=== PATIENT | female | born 1950 | race Caucasian/White ===

== ENCOUNTER 2018-07-11 04:00 | Inpatient (IN) | payer MEDICARE, OTHER, SELFPAY ==
[2018-07-11] VITALS (10 sets, daily range): BP systolic 137–207; BP diastolic 63–111; PULSE 65–76; RESP 16–24; TEMP 36.2–37; O2SAT 96–100; BMI 31.8
--- NOTE | 2018-07-11 04:17 | DI.RAD.S_ITS ---
PROCEDURE: XR CHEST 1V INDICATIONS: chest pain TECHNIQUE: One view of the chest was acquired. COMPARISON: None. FINDINGS: Surgical changes and devices: None. Lungs and pleura: No pleural effusions or pneumothorax. Lungs are clear. Mediastinum: Mediastinal contours appear normal. Heart size is normal. Bones and chest wall: No suspicious bony lesions. Overlying soft tissues appear unremarkable. IMPRESSION: No acute cardiopulmonary pathology. Dictated by: Kirit Gong M.D. on 07/11/2018 at 9:42 Approved by: Kirit Gong M.D. on 07/11/2018 at 9:42
[2018-07-11] MEDS: SODIUM CHLORIDE 0.9% 1,000 ML 150 ML IV ×2 (04:20→11:59)
[2018-07-11] MEDS: LABETALOL 100 MG/20ML MDV 10 MG IV (04:21)
[2018-07-11 04:39] LABS: Add Manual Diff / Slide Review NO; Basophils Percent Auto 0.5 % (0-2); Eosinophils Percent Auto 2.7 % (2-4); Hematocrit 43.8 % (36-46); Hemoglobin 15.4 g/dL (12.0-16.0); Lymphocytes Percent Auto 18.3 % (25-40); Mean Corpuscular HGB Conc 35.2 % (30-36); Mean Corpuscular Hemoglobin 30.8 PG (26-34); Mean Corpuscular Volume 87.4 fL (80-100); Monocytes Percent Auto 8.5 % (3-14); Neutrophils Absolute Auto 3800 /uL (3000-5900); Platelet Count 137 X10^3/uL (150-400); Red Blood Cell Count 5.01 X10^6/uL (4.0-5.2); Red Cell Distribution Width 12.6 % (11.6-14.8); White Blood Cell Count 5.4 X10^3/uL (4.5-11.0)
[2018-07-11 04:49] LABS: Alanine Aminotransferase 32 IU/L (9-52); Albumin 4.2 g/dL (3.5-5.0); Albumin Globulin Ratio 1.4 (1.0-2.8); Alkaline Phosphatase 118 U/L (38-126); Aspartate Aminotransferase 31 IU/L (14-36); Bilirubin Total 0.7 mg/dL (0.2-1.3); Blood Urea Nitrogen 24 mg/dL (7-17); Carbon Dioxide 27 mmol/L (22-32); Chloride 107 mmol/L (98-107); Creatine Kinase 105 U/L (30-135); Estimated Glomerular Filt Rate > 60.0 mL/min (>60); Glucose 182 mg/dL (80-110); HEMOLYSIS < 15 (0-50); Lipase 213 U/L (23-300); Potassium 4.2 mmol/L (3.4-5.1); Sodium 145 mmol/L (137-145); Total Protein 7.2 g/dL (6.3-8.2)
--- NOTE | 2018-07-11 04:55 | PC.NURSE ---
post labatalol admin
[2018-07-11 04:57] LABS: B Type Natriuretic Peptide < 30.0 (<100)
[2018-07-11 05:04] LABS: CKMB % Relative Index 3.4 % (1.5-5.0); Creatine Kinase MB 3.59 ng/mL (<2.37)
[2018-07-11] MEDS: METOPROLOL 50 MG TABLET PO (05:08)
--- NOTE | 2018-07-11 05:19 | PC.NURSE ---
pt reports chest pain is gone. states i feel a little tight right here now and pointed to her [place] area.
[2018-07-11 05:30] LABS: Troponin I 0.143 ng/mL (0.01-0.034)
[2018-07-11 05:39] LABS: Bacteria Urine None Seen; RBC Urine None Seen (0-5/HPF)
--- NOTE | 2018-07-11 05:39 | ED_ITS ---
HPI - Chest Pain General Chief Complaint: Chest Pain Stated Complaint: Chest pain Time Seen by Provider: 07/11/18 04:05 Source: patient, family and EMS Mode of arrival: EMS Limitations: no limitations History of Present Illness HPI narrative: 67-year-old patient with history of hypertension presents to the emergency department by EMS with chief complaint sudden-onset severe anterior chest pain with radiation to bilateral shoulders and jaw, associated with lightheadedness, shortness of breath and nausea. She denies any provocation or palliation of her symptoms. She denies any history of the same. Yesterday she had a brief episode of some chest pressure and shortness of breath but it went away after about 30 min. EMS found her with an elevated systolic blood pressure over 200 and obtained EKG which was nonischemic. She was administered aspirin, nitro and transported to the emergency department. She was still having some of her symptoms on arrival MD complaint: chest pain Onset (ago): hour(s) Duration: constant Onset: during rest Severity: severe Severity scale (1-10): 10 Quality: tightness, aching and heaviness Pain radiation: RUE, LUE, neck and jaw/teeth Relieving factors: nothing Exacerbating factors: nothing Associated symptoms: nausea and dyspnea Treatments prior to arrival chest pain: aspirin, nitroglycerin and oxygen Related Data On Oral Contraceptives: No Home Medications Medication Instructions Recorded Confirmed loratadine [Claritin] 10 mg PO QDAYP PRN #0 09/01/17 07/11/18 Allergies Allergy/AdvReac Type Severity Reaction Status Date / Time No Known Drug Allergies Allergy Verified 07/11/18 04:19 Review of Systems Review of Systems All systems reviewed & are unremarkable except as noted in HPI and below Constitutional Denies chills, Denies fever(s), Denies lethargy and Denies weakness Eyes Denies change in vision, Denies eye discharge, Denies irritation and Denies loss of vision ENT Ears, Nose, Mouth, and Throat: Denies change in voice, Denies neck pain and Denies sore throat Cardiovascular Reports chest pain, Denies irregular heart rhythm, Reports lightheadedness, Denies palpitations, Reports dyspnea, Denies dyspnea on exertion and Denies orthopnea Respiratory Denies cough, Reports dyspnea, Denies dyspnea on exertion and Denies wheezing Gastrointestinal Gastrointestinal: Denies abdominal pain, Denies change in bowel habits, Denies diarrhea, Denies nausea and Denies vomiting Genitourinary Denies hematuria, Denies flank pain, Denies urinary incontinence and Denies urinary urgency Musculoskeletal Denies neck pain Integumentary/Breasts Denies pruritus, Denies erythema, Denies rash and Denies wounds Neurologic Denies confusion, Denies loss of vision and Denies weakness Psychiatric Denies anxiety, Denies confusion, Denies depression, Denies homicidal ideation and Denies suicidal ideation Endocrine Denies palpitations Hematologic/Lymphatic Denies easy bruising Allergic/Immunologic Denies wheezing PFSH Family History: Reviewed 07/11/18 by Humera Napier MD Social History household members: spouse and family Smoking Status: Never smoker Exam Initial Vital Signs Initial Vital Signs: Vital Signs Temperature 97.2 F L 07/11/18 04:15 Pulse Rate 76 07/11/18 04:15 Respiratory Rate 18 07/11/18 04:15 Blood Pressure 207/111 H 07/11/18 04:15 Pulse Oximetry 96 07/11/18 04:15 Const General: cooperative and well developed Nutritional Appearance: well nourished Orientation: alert, awake, oriented x3 and not confused HENMT Head: normocephalic and atraumatic Ears: external ears normal and TM's normal bilaterally Nose: external nose normal and No nasal discharge Face and sinus: sinuses nontender, face symmetric, no sinus tenderness and No dry mucous membranes Mouth: oral mucosae normal and moist mucous membranes Teeth and gingiva: dentition normal Throat: tonsils normal and uvula midline Eyes General: appearance normal, both eyes and all related structures Eyelids: eyelids normal Conjunctivae: conjunctivae normal Sclera: sclerae normal Pupils: PERRL EOM: EOM intact bilaterally Neck Neck: normal visual inspection, trachea midline, No lymphadenopathy, No midline deformity and No JVD Lymphatic: No lymphedema Chest Chest: normal inspection of the chest Resp Effort & Inspection: normal respiratory effort, able to speak in complete sentences, no respiratory distress and no use of accessory muscles Auscultation: clear to auscultation bilaterally, no rales, no rhonchi and no wheezes Cardio Rate: regular rate Rhythm: regular rhythm Heart Sounds: no click, no gallops, no murmurs and no rubs Pulses: normal peripheral pulses GI Inspection: non-distended Palpation: soft, no hepatosplenomegaly, No guarding, No pulsatile mass and No tender Auscultation: normal bowel sounds Back/Spine/Pelvis Back: No CVA tenderness Cervical Spine: cervical ROM normal and No pain with cervical ROM Thoracic/Lumbar Spine: thoracic and lumbar spine normal to inspection Skin General: no rashes or lesions noted, No jaundice and No petechiae Neuro General: alert, oriented x3, gait normal and no focal motor deficits Speech: speech normal Extrem General: full ROM, no clubbing, cyanosis or edema, no pedal edema and no calf tenderness Psych Appearance: well kempt Mental Status: mental status grossly normal Attitude: cooperative Thought Content: normal and suicidality Judgment: judgment good Course Decision to Admit Date: 07/11/18 Decision to Admit time: 04:50 Orders Ordered: Discontinued Medications Aspirin (Aspirin Chew) 324 mg PO NOW ONE Stop: 07/11/18 13:08 Last Admin: 07/11/18 13:13 Dose: 324 mg Atorvastatin Calcium (Lipitor) 80 mg PO NOW ONE Stop: 07/11/18 13:10 Last Admin: 07/11/18 13:13 Dose: 80 mg Docusate Sodium (Colace) 100 mg PO BID AKIRA Last Admin: 07/11/18 11:59 Dose: 100 mg Heparin Sodium (Porcine) (Heparin) 5,700 unit 70 unit/kg (5700 unit) IV NOW ONE Stop: 07/11/18 06:40 Last Admin: 07/11/18 06:58 Dose: 5,000 unit Sodium Chloride (Normal Saline 0.9%) 1,000 mls @ 150 mls/hr IV CONT AKIRA Last Infusion: 07/11/18 12:41 Dose: 0 mls/hr Infusion: 07/11/18 12:40 Dose: 0 mls/hr Admin: 07/11/18 11:59 Dose: 150 mls/hr Infusion: 07/11/18 09:30 Dose: 150 mls/hr Infusion: 07/11/18 08:21 Dose: 0 mls/hr Admin: 07/11/18 04:20 Dose: 150 mls/hr Heparin Sodium/Dextrose (Heparin Drip) 25,000 unit in 500 mls @ 19.595 mls/hr IV CONT AKIRA; Protocol Last Infusion: 07/11/18 09:30 Dose: 12.24 units/kg/hr, 20 mls/hr Infusion: 07/11/18 08:22 Dose: 0 units/kg/hr, 0 mls/hr Admin: 07/11/18 06:59 Dose: 12.24 units/kg/hr, 20 mls/hr Nicardipine HCl 25 mg/ Sodium (Chloride) 250 mls @ 50 mls/hr IV TITRATE AKIRA; Protocol Last Titration: 07/11/18 10:31 Dose: 0 mg/hr, 0 mls/hr Titration: 07/11/18 09:31 Dose: 2.5 mg/hr, 25 mls/hr Titration: 07/11/18 08:11 Dose: 0 mg/hr, 0 mls/hr Admin: 07/11/18 08:10 Dose: 5 mg/hr, 50 mls/hr Labetalol HCl (Normodyne) 10 mg IV NOW ONE Stop: 07/11/18 04:16 Last Admin: 07/11/18 04:21 Dose: 10 mg Metoprolol Tartrate (Lopressor) 50 mg PO NOW ONE Stop: 07/11/18 05:05 Last Admin: 07/11/18 05:08 Dose: 50 mg Morphine Sulfate (Morphine) 2 mg IV Q4HR PRN PRN Reason: pain mod Pantoprazole Sodium (Protonix) 40 mg PO 0700 [facility] Reevaluation(s) Reevaluation #1: patient continues to be asymptomatic Consultations Consultation #1: Given positive troponin we placed a call to Cardiology at [facility] who sure the opinion that the etiology of this chest pain and positive troponin are unclear at this point in time. He does not request the patient be transferred to [facility] but instead recommends heparin bolus and IV drip as well as admission here with trending of cardiac enzymes. Furthermore he mentions that for any change in the patient's clinical status that he is happy to accept this patient in transfer provided the bed status was still allow it Time: 06:51 Vital Signs - 8 hr 07/11/18 04:15 07/11/18 04:54 Temperature 97.2 F L Pulse Rate 76 65 Respiratory Rate 18 18 Blood Pressure 207/111 H Blood Pressure [Left Arm] 167/85 H Pulse Oximetry 96 100 MDM - Chest Pain Differential Diagnosis Likely pneumothorax, unstable angina pectoris, atypical chest pain, st elevation myocardial infarction and chest pain Medical Records Data Attestation: I reviewed the patient's medical records. Lab Data Result diagrams: 07/11/18 04:27 07/11/18 04:27 Lab Results 07/11/18 07/11/18 07/11/18 Range/Units 04:27 04:27 04:27 WBC 5.4 (4.5-11.0) X10^3/uL RBC 5.01 (4.0-5.2) X10^6/uL Hgb 15.4 (12.0-16.0) g/dL Hct 43.8 (36-46) % MCV 87.4 (80-100) fL MCH 30.8 (26-34) PG MCHC 35.2 (30-36) % RDW 12.6 (11.6-14.8) % Plt Count 137 L (150-400) X10^3/uL Neut % (Auto) 70.0 (50-75) % Lymph % (Auto) 18.3 L (25-40) % Gilliam % (Auto) 8.5 (3-14) % Eos % (Auto) 2.7 (2-4) % Baso % (Auto) 0.5 (0-2) % Neut # (Auto) 3800 (4430-3459) /uL APTT (26.4-36.2) SECONDS Sodium 145 (137-145) mmol/L Potassium 4.2 (3.4-5.1) mmol/L Chloride 107 (98-107) mmol/L Carbon Dioxide 27 (22-32) mmol/L BUN 24 H (7-17) mg/dL Creatinine 0.80 (0.52-1.04) mg/dL Estimated GFR > 60.0 (>60) mL/min BUN/Creatinine Ratio 30.0 H (6-22) Glucose 182 H (80-110) mg/dL Calcium 9.0 (8.4-10.2) mg/dL Total Bilirubin 0.7 (0.2-1.3) mg/dL AST 31 (14-36) IU/L ALT 32 (9-52) IU/L Alkaline Phosphatase 118 (38-126) U/L Total Creatine Kinase 105 (30-135) U/L CK-MB (CK-2) 3.59 H (<2.37) ng/mL CK-MB (CK-2) Rel Index 3.4 (1.5-5.0) % Troponin I 0.143 H* (0.01-0.034) ng/mL B-Natriuretic Peptide < 30.0 (<100) Total Protein 7.2 (6.3-8.2) g/dL Albumin 4.2 (3.5-5.0) g/dL Globulin 3.0 (1.7-4.1) g/dL Albumin/Globulin Ratio 1.4 (1.0-2.8) Lipase 213 (23-300) U/L Urine RBC (0-5/HPF) Urine WBC (0-5/HPF) Urine Bacteria (None) Ur Culture Indicated? Micro UA Comment Nasal Screen MRSA (PCR) (Negative) 07/11/18 07/11/18 07/11/18 Range/Units 04:27 05:20 12:20 WBC (4.5-11.0) X10^3/uL RBC (4.0-5.2) X10^6/uL Hgb (12.0-16.0) g/dL Hct (36-46) % MCV (80-100) fL MCH (26-34) PG MCHC (30-36) % RDW (11.6-14.8) % Plt Count (150-400) X10^3/uL Neut % (Auto) (50-75) % Lymph % (Auto) (25-40) % Gilliam % (Auto) (3-14) % Eos % (Auto) (2-4) % Baso % (Auto) (0-2) % Neut # (Auto) (6311-6246) /uL APTT 32 111 H* D (26.4-36.2) SECONDS Sodium (137-145) mmol/L Potassium (3.4-5.1) mmol/L Chloride (98-107) mmol/L Carbon Dioxide (22-32) mmol/L BUN (7-17) mg/dL Creatinine (0.52-1.04) mg/dL Estimated GFR (>60) mL/min BUN/Creatinine Ratio (6-22) Glucose (80-110) mg/dL Calcium (8.4-10.2) mg/dL Total Bilirubin (0.2-1.3) mg/dL AST (14-36) IU/L ALT (9-52) IU/L Alkaline Phosphatase (38-126) U/L Total Creatine Kinase (30-135) U/L CK-MB (CK-2) (<2.37) ng/mL CK-MB (CK-2) Rel Index (1.5-5.0) % Troponin I (0.01-0.034) ng/mL B-Natriuretic Peptide (<100) Total Protein (6.3-8.2) g/dL Albumin (3.5-5.0) g/dL Globulin (1.7-4.1) g/dL Albumin/Globulin Ratio (1.0-2.8) Lipase (23-300) U/L Urine RBC None seen (0-5/HPF) Urine WBC 0-1/hpf (0-5/HPF) Urine Bacteria None seen (None) Ur Culture Indicated? Cult not indicated Micro UA Comment Microscopic normal Nasal Screen MRSA (PCR) (Negative) 07/11/18 07/11/18 Range/Units 12:20 13:05 WBC (4.5-11.0) X10^3/uL RBC (4.0-5.2) X10^6/uL Hgb (12.0-16.0) g/dL Hct (36-46) % MCV (80-100) fL MCH (26-34) PG MCHC (30-36) % RDW (11.6-14.8) % Plt Count (150-400) X10^3/uL Neut % (Auto) (50-75) % Lymph % (Auto) (25-40) % Gilliam % (Auto) (3-14) % Eos % (Auto) (2-4) % Baso % (Auto) (0-2) % Neut # (Auto) (8911-4310) /uL APTT (26.4-36.2) SECONDS Sodium (137-145) mmol/L Potassium (3.4-5.1) mmol/L Chloride (98-107) mmol/L Carbon Dioxide (22-32) mmol/L BUN (7-17) mg/dL Creatinine (0.52-1.04) mg/dL Estimated GFR (>60) mL/min BUN/Creatinine Ratio (6-22) Glucose (80-110) mg/dL Calcium (8.4-10.2) mg/dL Total Bilirubin (0.2-1.3) mg/dL AST (14-36) IU/L ALT (9-52) IU/L Alkaline Phosphatase (38-126) U/L Total Creatine Kinase 340 H D (30-135) U/L CK-MB (CK-2) 32.00 H D (<2.37) ng/mL CK-MB (CK-2) Rel Index 9.4 H* (1.5-5.0) % Troponin I 4.810 H* (0.01-0.034) ng/mL B-Natriuretic Peptide (<100) Total Protein (6.3-8.2) g/dL Albumin (3.5-5.0) g/dL Globulin (1.7-4.1) g/dL Albumin/Globulin Ratio (1.0-2.8) Lipase (23-300) U/L Urine RBC (0-5/HPF) Urine WBC (0-5/HPF) Urine Bacteria (None) Ur Culture Indicated? Micro UA Comment Nasal Screen MRSA (PCR) Negative for mrsa (Negative) ECG Data Attestation: I personally reviewed and interpreted this ECG as follows: Prior ECG tracings: available for review Interpretation: Sec EKG remains normal sinus rhythm at a rate of 69 without signs of ischemia or ectopy such as ST segmental elevation Discharge Plan Departure Patient Disposition: Admitted As Inpatient Clinical Impression: Hypertension, Elevated troponin Discharge Date/Time: 07/11/18 08:26 Interventions: ED Discharge Assessment Last Done: 07/11/18 08:22 Admit Date/Time: 07/11/18 07:31 Admit Provider: Humera Napier
[2018-07-11 05:58] LABS: Culture Indicated Urine Cult Not Indicated; Urine Comments Microscopic Normal; WBC Urine 0-1/HPF (0-5/HPF)
[2018-07-11] MEDS: HEPARIN 5,000 UNIT/ML VIAL 5700 UNIT IV (06:58)
[2018-07-11] MEDS: HEPARIN DRIP 25,000 UNIT/500 ML IV.SOLN 20 UNIT IV (06:59)
--- NOTE | 2018-07-11 07:00 | PC.NURSE ---
heparin bolus given at 5000 units per CURJ per protocol in heparin bag, infusion started at 1000units/hr per CURJ per protocol in heparin bag
[2018-07-11 07:14] LABS: PTT Partial Thromboplastin Tim 32 SECONDS (26.4-36.2)
--- NOTE | 2018-07-11 07:44 | PC.NURSE ---
5000 unit heparin bolus given.
[2018-07-11] MEDS: NICARDIPINE 25 MG in SODIUM CHLORIDE 0.9% 240 ML 50 ML IV (08:10)
--- NOTE | 2018-07-11 10:51 | PM.HP.1 ---
History of Present Illness Date Patient Seen: 07/11/18 Time Patient Seen: 09:51 Chief complaint: Chest pain Narrative: 67-YEAR-OLD LADY CAME TO THE ER BECAUSE SHE WAS NOT FEELING WELL EARLY THIS MORNING SHE NORMALLY GETS UP AT 2:30 A.M. AND GETS READY TO GO TO WORK AND TODAY SHE GOT UP WENT AND HAD A SHOWER AND AFTER THE SHOWER SHE FELT VERY DIZZY AND STARTED DEVELOPING CHEST PAIN AND PAIN IN THE [place] AND SO SHE CAME TO THE EMERGENCY ROOM THE ER ARE INITIAL BLOOD PRESSURE WAS 220 / 110 AND WORKUP REVEALED POSITIVE TROPONIN THE ER DOCTOR CONSULTED THE ASSEMBLER [employer]ENTS AUDIOLOGY TECHNICIAN AND IT WAS DECIDED TO MANAGE HER HYPERTENSIVE EMERGENCY BUT AT THE SAME TIME ALSO GIVE HER IV HEPARIN AFTER THE INITIATION OF THERAPY FOR THE BLOOD PRESSURE WITH METOPROLOL 50 MG P.O. AND THEN NICARDIPINE INFUSION THE BLOOD PRESSURE IS WELL CONTROLLED AND THE PATIENT IS SYMPTOM FREE IN FACT SHE DID NOT HAVE ANY MORE CHEST PAIN BY THE TIME SHE WAS EVALUATED IN THE ER SHE HAS A HISTORY OF HYPERTENSION FOR SOME YEARS BUT SHE HAS NOT TAKEN ANY MEDICATION EVEN THOUGH IT WAS RECOMMENDED TO HER BY HER PHYSICIAN Patient History Family & Social History Family History: Reviewed 07/11/18 by Humera Napier MD Social History: household members spouse,family Prior Living Arrangements House Safety & Behavioral: Feels Safe in Current Yes Environment Been Physically Hurt or No Threatened By a Person Suicidal Ideation Description None Suicide Plan Description No Plan Tobacco & Substance use: Smoking Status Never smoker alcohol intake frequency holiday/special occasion Substance Use Type does not use Meds Home Medications Medication Instructions Recorded Confirmed Type loratadine [Claritin] 10 mg PO QDAYP PRN #0 09/01/17 07/11/18 History Allergies Allergy/AdvReac Type Severity Reaction Status Date / Time No Known Drug Allergies Allergy Verified 07/11/18 04:19 Review of Systems Review of Systems A 12 POINT REVIEW OF SYSTEMS REVEALS HISTORY ABOVE NONE OF THE OTHER SYSTEMS ARE POSITIVE OR ANY SYMPTOMS 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 Exam Vital Signs (past 8 hours): - 07/11/18 04:15 07/11/18 04:50 07/11/18 04:54 Temperature 97.2 F L 97.2 F L Pulse Rate 76 69 65 Respiratory Rate 18 18 18 Blood Pressure 207/111 H 207/111 H Blood Pressure [Left Arm] 167/85 H Pulse Oximetry 96 96 100 08/26/18 07:30 07/11/18 08:12 07/11/18 08:27 Temperature Pulse Rate 69 72 Respiratory Rate 18 24 Blood Pressure Blood Pressure [Left Arm] 196/72 H 141/74 H 140/68 H Pulse Oximetry 96 96 07/11/18 10:10 Temperature 97.9 F Pulse Rate 66 Respiratory Rate 22 Blood Pressure 137/75 H Blood Pressure [Left Arm] Pulse Oximetry 96 Oxygen Delivery Method Room Air Const General: cooperative, healthy appearing, comfortable and well developed Orientation: alert, awake and oriented x3 [facility] Head: normal to inspection, normocephalic and atraumatic Nose: external nose normal Face and sinus: normal facial exam Mouth: oral mucosae normal Eyes General: appearance normal, both eyes and all related structures Eyelids: eyelids normal Conjunctivae: conjunctivae normal Sclera: sclerae normal Pupils: PERRL EOM: EOM intact bilaterally Neck Neck: normal visual inspection, full ROM and No JVD Resp Effort & Inspection: normal respiratory effort, able to speak in complete sentences, no respiratory distress and no use of accessory muscles Auscultation: clear to auscultation bilaterally Cardio Palpation: normal PMI Rate: regular rate Rhythm: regular rhythm Heart Sounds: S1 normal and S2 normal GI Inspection: normal to inspection Palpation: soft and no hepatosplenomegaly Skin General: no rashes or lesions noted Neuro General: alert, awake, oriented x3 and no meningeal signs Cranial Nerves: CN's II-XI intact bilaterally Cognition: normal cognition Speech: speech normal Motor: muscle tone normal throughout Extrem Other: NIL EDEMA Psych Appearance: grossly normal Speech and Movement: speech and movement normal Mood: congruent mood Affect: normal affect Attitude: cooperative Thought Content: normal Judgment: judgment good Objective Labs Result Diagrams: 07/11/18 04:27 07/11/18 04:27 Labs: Laboratory Results - last 24 hr 07/11/18 07/11/18 07/11/18 04:27 04:27 04:27 WBC 5.4 RBC 5.01 Hgb 15.4 Hct 43.8 MCV 87.4 MCH 30.8 MCHC 35.2 RDW 12.6 Plt Count 137 L Neut % (Auto) 70.0 Lymph % (Auto) 18.3 L Wirt % (Auto) 8.5 Eos % (Auto) 2.7 Baso % (Auto) 0.5 Neut # (Auto) 3800 APTT Sodium 145 Potassium 4.2 Chloride 107 Carbon Dioxide 27 BUN 24 H Creatinine 0.80 Estimated GFR > 60.0 BUN/Creatinine Ratio 30.0 H Glucose 182 H Calcium 9.0 Total Bilirubin 0.7 AST 31 ALT 32 Alkaline Phosphatase 118 Total Creatine Kinase 105 CK-MB (CK-2) 3.59 H CK-MB (CK-2) Rel Index 3.4 Troponin I 0.143 H* B-Natriuretic Peptide < 30.0 Total Protein 7.2 Albumin 4.2 Globulin 3.0 Albumin/Globulin Ratio 1.4 Lipase 213 Urine RBC Urine WBC Urine Bacteria Ur Culture Indicated? Micro UA Comment 07/11/18 07/11/18 04:27 05:20 WBC RBC Hgb Hct MCV MCH MCHC RDW Plt Count Neut % (Auto) Lymph % (Auto) Wirt % (Auto) Eos % (Auto) Baso % (Auto) Neut # (Auto) APTT 32 Sodium Potassium Chloride Carbon Dioxide BUN Creatinine Estimated GFR BUN/Creatinine Ratio Glucose Calcium Total Bilirubin AST ALT Alkaline Phosphatase Total Creatine Kinase CK-MB (CK-2) CK-MB (CK-2) Rel Index Troponin I B-Natriuretic Peptide Total Protein Albumin Globulin Albumin/Globulin Ratio Lipase Urine RBC None seen Urine WBC 0-1/hpf Urine Bacteria None seen Ur Culture Indicated? Cult not indicated Micro UA Comment Microscopic normal Assessment & Plan Plan: Assessment/Plan Narrative: 1.CHEST PAIN WITH POSITIVE TROPONIN NOW CHEST PAIN-FREE CARDIOLOGY WAS CONSULTED OVER THE PHONE BY THE ER DOCTOR THE PATIENT IS ON IV HEPARIN INFUSION WILL TREND THE TROPONINS PATIENT IS CHEST PAIN-FREE NOW 2 HYPERTENSIVE EMERGENCY NUMBER BETTER CONTROLLED AFTER ORAL MEDICATION WELL IV TITRATION OF NICARDIPINE THE NICARDIPINE IS OFF NOW 3. CHRONIC HYPERTENSION NONCOMPLIANT WITH MEDICATION WILL CHECK HER LIPIDS IN A Time Spent With Patient Time with patient: Greater than 35 minutes
--- NOTE | 2018-07-11 11:50 | PC.NURSE ---
pt admitted to room 101 with hypertensive crisis- b/p brought down nicely by po metoprolol ( given in ed) and nicardipine gtt initially set at 5mg/h- then decreased to 2.5mg/h then turned off per Dr. Vázquez. pt has a hx of htn but does not currently take any rx for same- she also appears stressed/anxious- family at bedside confirm this. NSR per tele voiding well heparin gtt continues at 20cc/h (1000u) and NS @ 150cc/h - voiding well and denies pain
[2018-07-11] MEDS: DOCUSATE 100 MG CAPSULE PO (11:59)
[2018-07-11 12:38] LABS: Creatine Kinase 340 U/L (30-135)
[2018-07-11 12:50] LABS: PTT Partial Thromboplastin Tim 111 SECONDS (26.4-36.2)
[2018-07-11] MEDS: ATORVASTATIN 20 MG TABLET 80 MG PO (13:13)
[2018-07-11] MEDS: ASPIRIN 81 MG TAB 324 MG PO (13:13)
--- NOTE | 2018-07-11 13:13 | PM.EVENT ---
Date Patient Seen: 07/11/18 Time Patient Seen: 13:13 THE REPEAT TROPONIN HAS COME BACK HIGH AT 4.8 I TALKED TO THE OPTOMETRY ASSISTANT PRINT LINE INSPECTOR DR. ROSADO AT [facility] THE PATIENT WILL BE TRANSFERRED TO [facility]
--- NOTE | 2018-07-11 13:15 | P.EN_ITS ---
Date Patient Seen: 07/11/18 Time Patient Seen: 13:13 THE REPEAT TROPONIN HAS COME BACK HIGH AT 4.8 I TALKED TO THE HOTEL SERVICE SUPERVISOR MAITRE D DR. ROSADO AT [facility] THE PATIENT WILL BE TRANSFERRED TO [facility]
[2018-07-11 13:21] LABS: CKMB % Relative Index 9.4 % (1.5-5.0)
--- NOTE | 2018-07-11 13:55 | P.DS_ITS ---
History of Present Illness Chief complaint: Chest pain Narrative: 67-YEAR-OLD LADY CAME TO THE ER BECAUSE SHE WAS NOT FEELING WELL EARLY THIS MORNING SHE NORMALLY GETS UP AT 2:30 A.M. AND GETS READY TO GO TO WORK AND TODAY SHE GOT UP WENT AND HAD A SHOWER AND AFTER THE SHOWER SHE FELT VERY DIZZY AND STARTED DEVELOPING CHEST PAIN AND PAIN IN THE JAW AND SO SHE CAME TO THE EMERGENCY ROOM THE ER ARE INITIAL BLOOD PRESSURE WAS 220 / 110 AND WORKUP REVEALED POSITIVE TROPONIN THE ER DOCTOR CONSULTED THE CIRCUIT RECORDER GROUP FITNESS INSTRUCTOR AND IT WAS DECIDED TO MANAGE HER HYPERTENSIVE EMERGENCY BUT AT THE SAME TIME ALSO GIVE HER IV HEPARIN AFTER THE INITIATION OF THERAPY FOR THE BLOOD PRESSURE WITH METOPROLOL 50 MG P.O. AND THEN NICARDIPINE INFUSION THE BLOOD PRESSURE IS WELL CONTROLLED AND THE PATIENT IS SYMPTOM FREE IN FACT SHE DID NOT HAVE ANY MORE CHEST PAIN BY THE TIME SHE WAS EVALUATED IN THE ER SHE HAS A HISTORY OF HYPERTENSION FOR SOME YEARS BUT SHE HAS NOT TAKEN ANY MEDICATION EVEN THOUGH IT WAS RECOMMENDED TO HER BY HER PHYSICIAN Discharge Providers Date of admission: 07/11/18 07:31 Primary care physician: Parth Hancock MD Discharge provider: Ji Napier MD Summary Discharge Diagnosis: 1. Acute coronary syndrome with troponin 4.8 Patient received metoprolol aspirin chew and Lipitor 80 mg is on heparin drip cardiology has been consulted Patient be transferred to acute care in [facility] 2. Hypertensive emergency initial blood pressure at the presentation in the ER was 220 /110 treated with an IV Cardene drip and metoprolol p.o. now well controlled Hospital Course: This very pleasant lady was admitted with the chest pain is substernal going to the jaw right after shower this morning at 2:30 a.m. 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 patient is hemodynamically stable initial EKG and subsequent EKG 6 hr later both showed a sinus rhythm with no evidence of ST-T changes Status at Discharge Functional status at discharge: independent ambulation Overall status at discharge: patient is back to baseline Time Spent with Patient Greater than 30 minutes Exam Vital Signs (past 8 hours): - 07/11/18 07:30 07/11/18 08:12 07/11/18 08:27 Temperature Pulse Rate 69 72 Respiratory Rate 18 24 Blood Pressure Blood Pressure [Left Arm] 196/72 H 141/74 H 140/68 H Pulse Oximetry 96 96 07/11/18 10:10 07/11/18 11:35 07/11/18 11:53 Temperature 97.9 F 98.6 F Pulse Rate 66 70 71 Respiratory Rate 22 18 16 Blood Pressure 137/75 H 159/63 H 145/78 H Blood Pressure [Left Arm] Pulse Oximetry 96 96 97 Oxygen Delivery Method Room Air Objective Labs Result Diagrams: 07/11/18 04:27 07/11/18 04:27 Labs: Laboratory Results - last 24 hr 07/11/18 07/11/18 07/11/18 04:27 04:27 04:27 WBC 5.4 RBC 5.01 Hgb 15.4 Hct 43.8 MCV 87.4 MCH 30.8 MCHC 35.2 RDW 12.6 Plt Count 137 L Neut % (Auto) 70.0 Lymph % (Auto) 18.3 L Dubois % (Auto) 8.5 Eos % (Auto) 2.7 Baso % (Auto) 0.5 Neut # (Auto) 3800 APTT Sodium 145 Potassium 4.2 Chloride 107 Carbon Dioxide 27 BUN 24 H Creatinine 0.80 Estimated GFR > 60.0 BUN/Creatinine Ratio 30.0 H Glucose 182 H Calcium 9.0 Total Bilirubin 0.7 AST 31 ALT 32 Alkaline Phosphatase 118 Total Creatine Kinase 105 CK-MB (CK-2) 3.59 H CK-MB (CK-2) Rel Index 3.4 Troponin I 0.143 H* B-Natriuretic Peptide < 30.0 Total Protein 7.2 Albumin 4.2 Globulin 3.0 Albumin/Globulin Ratio 1.4 Lipase 213 Urine RBC Urine WBC Urine Bacteria Ur Culture Indicated? Micro UA Comment 07/11/18 07/11/18 07/11/18 04:27 05:20 12:20 WBC RBC Hgb Hct MCV MCH MCHC RDW Plt Count Neut % (Auto) Lymph % (Auto) Dubois % (Auto) Eos % (Auto) Baso % (Auto) Neut # (Auto) APTT 32 111 H* D Sodium Potassium Chloride Carbon Dioxide BUN Creatinine Estimated GFR BUN/Creatinine Ratio Glucose Calcium Total Bilirubin AST ALT Alkaline Phosphatase Total Creatine Kinase CK-MB (CK-2) CK-MB (CK-2) Rel Index Troponin I B-Natriuretic Peptide Total Protein Albumin Globulin Albumin/Globulin Ratio Lipase Urine RBC None seen Urine WBC 0-1/hpf Urine Bacteria None seen Ur Culture Indicated? Cult not indicated Micro UA Comment Microscopic normal 07/11/18 12:20 WBC RBC Hgb Hct MCV MCH MCHC RDW Plt Count Neut % (Auto) Lymph % (Auto) Dubois % (Auto) Eos % (Auto) Baso % (Auto) Neut # (Auto) APTT Sodium Potassium Chloride Carbon Dioxide BUN Creatinine Estimated GFR BUN/Creatinine Ratio Glucose Calcium Total Bilirubin AST ALT Alkaline Phosphatase Total Creatine Kinase 340 H D CK-MB (CK-2) 32.00 H D CK-MB (CK-2) Rel Index 9.4 H* Troponin I 4.810 H* B-Natriuretic Peptide Total Protein Albumin Globulin Albumin/Globulin Ratio Lipase Urine RBC Urine WBC Urine Bacteria Ur Culture Indicated? Micro UA Comment Discharge Plan Discharge Plan Patient Disposition: [facility] Under care of provider: Dr ARMSTRONG Provider Discharge Instructions Diet: Nothing by Mouth Discharge Data Primary Care Provider: Parth Hancock Attending Provider: Humera Napier Admit Date/Time: 07/11/18 07:31
--- NOTE | 2018-07-11 16:39 | PC.NURSE ---
Addendum entered by Minerva Hayes R.N. 07/11/18 17:32: 1730 - Transport arrive. Pt remain pain free, VSS. Report given to MARY Medina. Assist with securing pt for transport. Report called to receiving Brigida HERNANDEZ. Original Note: Pt resting quietly in bed. Denies pain, nausea or SOB. Educated to pending transfer. Heparin infusing per protocol. Denies further questions. Educated to call with return of pain. Call light in reach.
== END 2018-07-11 17:30 | disposition short-term general hospital (02) | DRG 281 ==
LOC: ED 05:50 → AC 07:34 → ICU 08:16
PROVIDERS: Admitting Provider Internal Medicine; Emergency Provider Emergency Medicine; Family Provider Family Medicine; PCP Family Medicine; Visit Provider Internal Medicine
DX: I21.4 Non-ST elevation (NSTEMI) myocardial infarction (principal); I16.1 Hypertensive emergency; T46.5X6A Underdosing of other antihypertensive drugs, initial encounter; Z91.128 Patient's intentional underdosing of medication regimen for other reason; I10 Essential (primary) hypertension
CPT/HCPCS: 36415; 36591; 71045; 80053; 81003; 81015; 82550; 82553; 83690; 83880; 84484; 85025; 85730; 87797; 93005; 93010; 96361; 96365; 96366; 96375; 99284; 99285; J1644

== ENCOUNTER → 2018-10-18 07:34 | Outpatient (CLI) | payer MEDICARE, OTHER, SELFPAY ==
[2018-07-16 13:33] VITALS: BMI 31.8
[2018-10-18 09:55] LABS: BUN Creatinine Ratio 22.5 (6-22); Blood Urea Nitrogen 18 mg/dL (7-17); Calcium 9.6 mg/dL (8.4-10.2); Carbon Dioxide 28 mmol/L (22-32); Chloride 104 mmol/L (98-107); Cholesterol 117 mg/dL (140-199); Estimated Glomerular Filt Rate > 60.0 mL/min (>60); Glucose 137 mg/dL (80-110); HDL Cholesterol 44 mg/dL (40-60); HEMOLYSIS < 15 (0-50); LDL Cholesterol Calculated 53 mg/dL (<100); Potassium 5.2 mmol/L (3.4-5.1); Sodium 144 mmol/L (137-145); Triglycerides 99 mg/dL (35-150)
== END ==
PROVIDERS: Family Provider Student in an Organized Health Care Education/Training Program; PCP Student in an Organized Health Care Education/Training Program; Visit Provider Hospitalist
DX: I10 Essential (primary) hypertension (principal); I25.10 Atherosclerotic heart disease of native coronary artery without angina pectoris; Z95.1 Presence of aortocoronary bypass graft
CPT/HCPCS: 36415; 80048; 80061

== ENCOUNTER → 2018-10-25 07:44 | Outpatient (CLI) | payer MEDICARE, OTHER, SELFPAY ==
[2018-07-16 13:33] VITALS: BMI 31.8
[2018-10-25 08:36] LABS: Blood Urea Nitrogen 19 mg/dL (7-17); Calcium 9.4 mg/dL (8.4-10.2); Carbon Dioxide 28 mmol/L (22-32); Chloride 102 mmol/L (98-107); Estimated Glomerular Filt Rate 55.6 mL/min (>60); Glucose 159 mg/dL (80-110); HEMOLYSIS < 15 (0-50); Potassium 5.2 mmol/L (3.4-5.1); Sodium 141 mmol/L (137-145)
== END ==
PROVIDERS: Family Provider Student in an Organized Health Care Education/Training Program; PCP Student in an Organized Health Care Education/Training Program; Referring Provider Hospitalist; Visit Provider Physician Assistant
DX: E87.5 Hyperkalemia (principal)
CPT/HCPCS: 36415; 80048

== ENCOUNTER 2018-11-10 12:15 | Outpatient (RCR) | payer MEDICARE, OTHER, SELFPAY ==
[2018-07-16 13:33] VITALS: BMI 31.8
--- NOTE | 2018-09-16 17:30 | PT.OPPOC ---
Current Diagnoses Dorsalgia, unspecified (09/16/18) Provider Visit Care Team Role Provider Type Andre Escamilla MD Attending Provider Physician Family Provider Primary Care Provider Specialty: Internal Medicine Address: [address] [place] [address], [id number] Email: Plan Of Care PT-OP-T Assessment and Plan Start: 09/16/18 15:45 Freq: Status: Active Protocol: Document 09/16/18 17:12 EA (Rec: 09/27/18 17:35 EA [id number]) Physical Therapy Assessment Rehab Potential Rehabilitation Potential Good Evaluation Complexity Number of Personal Factors/Comorbidities 3 or More Number of Body Systems Impaired 3 Clinical Presentation at Evaluation Evolving Impairments Impairments Activity Tolerance Pain Posture Soft Tissue Mobility Strength Goals Four Impairment Impaired sleeping duration due to pain Fpc Goal (LTG) Patient will sleep more than 6 hours with no discomfort to low and midback pain. LTG Duration 4 wks Three Impairment Impaired lumbar ROM Financial Foundations Representative Goal (LTG) Patient will exhibit normal lumbosacral AROM to enhance functional movement without limitation. LTG Duration 4 wks Two Impairment Oswetry low back pain impairment scale score of 14/ 50 Financial Foundations Representative Goal (LTG) Oswetry impairment scale score of 5/10 LTG Duration 4 wks One Impairment Impaired posture Financial Foundations Representative Goal (LTG) Patient will exhibit normal functional posture to eliminate muscular imbalance. LTG Duration 4 wks Assessment Summary Assessment Pleasant 67 y/o F patient with referring diagnosis of upper back demonstrates today with non-inflammatory grade 2 tender points over left medial scapular border and right SI jnt. Special tests to lumbar region reveals positive with R SI and facets joint dysfunction with no nerve root involvement. Special tests to cervical nerve reveals negative. Tightness to anterior shoulders and lumbars flexors is evident which led to fair to poor posture. However due to history of recent heart surgery, further tests to mid back pain is necessary for ultimate care. In my professional opinion, patient would benefit with skilled PT to improve patient posture, correction of muscular imbalance, and to reduce back symptoms through conservative management. Physical Therapy Plan Frequency and Duration Frequency of Treatment 2x/Week Plan of Care Start Date 09/16/18 Plan of Care End Date 11/30/18 Therapeutic Interventions Therapeutic Interventions Home Exercise Program Joint Mobilizations Manual Therapy Patient/Caregiver Education Self-Care/Home Management Soft Tissue Mobilization Taping Therapeutic Exercises Modalities Cold Pack/Ice Massage Electric Stimulation Hot Packs Next Visit Focus/Plan Next Note Type Treatment Note Next Visit Plan HEP, stretch tight muscles, decrease pain Plan of Care Dates Plan of Care Start Date 09/16/18 Plan of Care End Date 11/30/18 Please Sign and Return: I have reviewed this Plan of Care and certify that the skilled therapy services above are required to meet the patient?s needs. Physician Signature Date Printed Name and Credentials Clinical Instructor Signature Printed Name and Credentials
--- NOTE | 2018-09-16 17:30 | PT.OIE ---
Current Diagnoses Dorsalgia, unspecified (09/16/18) Past Medical History (Last Updated 09/26/18 @ 16:29 by Andre Escamilla MD) Atrial fibrillation (Chronic) Coronary artery disease (Chronic) Arthritis of knee (Chronic 12/31/15) Essential hypertension (Chronic 12/31/15) Ankle pain (Chronic) Hypertension (Chronic) Low back pain (Chronic ~09/2017) Lumbar stenosis (Chronic ~09/2017) Osteoarthritis (Chronic) Past Surgical History (Last Reviewed 08/01/18 @ 14:17 by Parth Hancock MD) Hx of total knee arthroplasty (Resolved) Hx of tonsillectomy (Resolved) Hx of hysterectomy (Resolved) Hx of hand surgery (Resolved) 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) Provider Visit Care Team Role Provider Type Andre Escamilla MD Attending Provider Physician Family Provider Primary Care Provider Specialty: Internal Medicine Address: [address] [place] [address] Email: Physical Therapy Initial Evaluation PT-OP-A Visit Information Start: 09/16/18 15:45 Freq: Status: Active Protocol: Document 09/16/18 17:12 EA (Rec: 09/27/18 17:35 EA [id number]) Out-Patient Physical Therapy Visit Information Visit Information Visit Type Initial Evaluation Visit Start Time 10:30 Visit Stop Time 11:05 Total Visit Minutes 40 Visit Number 1 Evaluation Information Evaluation Date 09/16/18 PT-OP-B Current Condition Start: 09/16/18 15:45 Freq: Status: Active Protocol: Document 09/16/18 17:12 EA (Rec: 09/27/18 17:35 EA [id number]) Current Condition History of Current Condition Onset Date ~ 8 years ago Current Complaints Left mid back and R SI joint localized pain History of Current Condition Present c/o low back and mid back pain started gradually over 8 years with no back injuries or significant surgeries. 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 Low back MRI was performed 3 years ago however patient unable to recall results. On 07/11/18 patient underwent triple CABG and was cleared to cardio rehab 07/18/18 and still currently ongoing with 36 weeks cardio rehab program. Prior Treatments and Tests CABG x 3 (07/11/18) Ongoing cardiac rehab Future Testing and Treatments Planned Ongoing cardiac rehab program Treatment Goals Patient/Caregiver Goals Pt wants to get rid of the upper back pain and improve posture Prior Functional Status Baseline Function- ADL's Independent Baseline Function- Mobility Independent Baseline Function- Gait Indep Baseline Function- Work/School Retired Current Functional Impairments (Reported) Functional Limitations- ADL's Indep with min difficulty to light lifting due to increased in mid back pain and CABG pre -cautions Functional Limitations- Mobility/Gait Indep with pre-cautions to mod /high intensity due to post CABG Functional Limitations- Work/School Retired PT-OP-C Subjective Start: 09/16/18 15:45 Freq: Status: Active Protocol: Document 09/16/18 17:12 EA (Rec: 09/27/18 17:35 EA [id number]) OP-PT Subjective Patient Comments Patient Comments Pt refports she would be gone next week and would be available after 3 weeks. Patient Reported Progress Worse PT-OP-G Mobility & Gait Start: 09/16/18 15:45 Freq: Status: Active Protocol: Document 09/16/18 17:18 EA (Rec: 09/28/18 07:28 EA [id number]) OP Mobility Evaluation Functional Movements Lifting and Carrying 7 lbs lifting pre-cautions OP Gait Assessment Gait Gait Assistance Required: Independent Able to Maintain Weight Bearing Status Yes During Gait Assistive Devices Assistive Device None Gait Deviations General Gait Pattern Antalgic Comments Gait Comments Mild right LE antalgic PT-OP-J Posture/Palpation/Skin Start: 09/16/18 15:45 Freq: Status: Active Protocol: Document 09/16/18 17:18 EA (Rec: 09/28/18 07:28 EA [id number]) Posture Evaluation Position Standing Evaluation View post/lat/ Head/C-Spine Posture Forward Head L-Spine Posture Decreased Lordosis Shoulder Posture (L) Rounded (R) Rounded Scapula Posture (L) Protracted (R) Protracted Pelvis Posture Posterior Tilted Palpation Assessment Location One Palpation Location Left medial scapular border, upper parathoracis, R paralumbars,SIJ Palpation Findings Tenderness PT-OP-K Range of Motion Start: 09/16/18 15:45 Freq: Status: Active Protocol: Document 09/16/18 17:18 EA (Rec: 09/28/18 07:28 EA [id number]) Lumbar Spine Range of Motion Lumbar Spine Active Percentage Testing Position Standing Flexion 40 Extension 15 Rotation Left 40 Rotation Right 40 Lateral Flexion Left 22 Lateral Flexion Right 22 ROM Limitations Soft Tissue Tightness Pain Shoulder Goniometric Range of Motion Shoulder Measured in Degrees Active Shoulder ROM WFL Yes Hip Goniometric Range of Motion Hip Measured in Degrees Left Active Hip ROM WFL Yes Right Active Hip ROM WFL Yes PT-OP-L Special Tests Start: 09/16/18 15:45 Freq: Status: Active Protocol: Document 09/16/18 17:12 EA (Rec: 09/27/18 17:35 EA [id number]) Special Tests Cervical Spine Special Tests Foraminal Compression Test Results negative Lumbar Spine Special Tests Other- 1 Test Results Gaenlen's Test: Positive right Straight Leg Raise Test Results negative Stork Test Test Results negative Slump Test Results negative Other Special Tests Special Tests Trigger Points: positive to medial scapular borders. PT-OP-M Strength Start: 09/16/18 15:45 Freq: Status: Active Protocol: Document 09/16/18 17:12 EA (Rec: 09/27/18 17:35 EA [id number]) Trunk Strength Trunk Manual Muscle Testing Testing Position sup/SL Flexion 5 Normal Extension 5 Normal Rotation Left 4+ Good+ Rotation Right 4+ Good+ Lateral Flexion Left 4+ Good+ Lateral Flexion Right 4+ Good+ Scapula Strength Scapula Manual Muscle Testing Right Elevation (C4) 5 Normal Adduction 5 Normal Depression 5 Normal Left Elevation (C4) 5 Normal Adduction 4- Good- Abduction 5 Normal Depression 5 Normal Shoulder Strength Shoulder Manual Muscle Testing Right Flexion 5 Normal Extension 5 Normal Abduction (C5) 5 Normal Adduction 5 Normal External Rotation 5 Normal Internal Rotation 5 Normal Horizontal Abduction 4 Good Horizontal Adduction 5 Normal Left Flexion 5 Normal Extension 5 Normal Abduction (C5) 5 Normal Adduction 5 Normal External Rotation 4 Good Internal Rotation 5 Normal Horizontal Abduction 4 Good Horizontal Adduction 5 Normal PT-OP-Q Treatments Start: 09/16/18 15:45 Freq: Status: Active Protocol: Document 09/16/18 17:30 EA (Rec: 09/28/18 08:03 EA [id number]) Self-Care/Home Management Treatment Education Patient Education Body Mechanics Home Exercise Program Pain Management Posture Safety PT-OP-T Assessment and Plan Start: 09/16/18 15:45 Freq: Status: Active Protocol: Document 09/16/18 17:12 ROBBIE (Rec: 09/27/18 17:35 EA [id number]) Physical Therapy Assessment Rehab Potential Rehabilitation Potential Good Evaluation Complexity Number of Personal Factors/Comorbidities 3 or More Number of Body Systems Impaired 3 Clinical Presentation at Evaluation Evolving Impairments Impairments Activity Tolerance Pain Posture Soft Tissue Mobility Strength Goals Four Impairment Impaired sleeping duration due to pain Residential Electrician Goal (LTG) Patient will sleep more than 6 hours with no discomfort to low and midback pain. LTG Duration 4 wks Three Impairment Impaired lumbar ROM Residential Electrician Goal (LTG) Patient will exhibit normal lumbosacral AROM to enhance functional movement without limitation. LTG Duration 4 wks Two Impairment Oswetry low back pain impairment scale score of 14/ 50 Residential Electrician Goal (LTG) Oswetry impairment scale score of 5/10 LTG Duration 4 wks One Impairment Impaired posture Alf Goal (LTG) Patient will exhibit normal functional posture to eliminate muscular imbalance. LTG Duration 4 wks Assessment Summary Assessment Pleasant 67 y/o F patient with referring diagnosis of upper back demonstrates today with non-inflammatory grade 2 tender points over left medial scapular border and right SI jnt. Special tests to lumbar region reveals positive with R SI and facets joint dysfunction with no nerve root involvement. Special tests to cervical nerve reveals negative. Tightness to anterior shoulders and lumbars flexors is evident which led to fair to poor posture. However due to history of recent heart surgery, further tests to mid back pain is necessary for ultimate care. In my professional opinion, patient would benefit with skilled PT to improve patient posture, correction of muscular imbalance, and to reduce back symptoms through conservative management. Physical Therapy Plan Frequency and Duration Frequency of Treatment 2x/Week Plan of Care Start Date 09/16/18 Plan of Care End Date 11/30/18 Therapeutic Interventions Therapeutic Interventions Home Exercise Program Joint Mobilizations Manual Therapy Patient/Caregiver Education Self-Care/Home Management Soft Tissue Mobilization Taping Therapeutic Exercises Modalities Cold Pack/Ice Massage Electric Stimulation Hot Packs Next Visit Focus/Plan Next Note Type Treatment Note Next Visit Plan HEP, stretch tight muscles, decrease pain
--- NOTE | 2018-10-05 15:16 | PT.OTN ---
Current Diagnoses Dorsalgia, unspecified (10/05/18) Physical Therapy Treatment Note PT-OP-A Visit Information Start: 09/16/18 15:45 Freq: Status: Active Protocol: Document 10/05/18 14:39 EA (Rec: 10/05/18 14:39 EA [id number]) Out-Patient Physical Therapy Visit Information Visit Information Visit Type Treatment Note Total Visit Minutes 40 Visit Number 2 Number of BAIL BOND AGENT Visits 0 PT-OP-B Current Condition Start: 09/16/18 15:45 Freq: Status: Active Protocol: Document 09/16/18 17:12 EA (Rec: 09/27/18 17:35 EA [id number]) Current Condition History of Current Condition Onset Date ~ 8 years ago Current Complaints Left mid back and R SI joint localized pain History of Current Condition Present c/o low back and mid back pain started gradually over 8 years with no back injuries or significant surgeries. 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 Low back MRI was performed 3 years ago however patient unable to recall results. On 07/11/18 patient underwent tripple CABG and was cleared to cardio rehab 07/18/18 and still currently ongoing with 36 weeks cardio rehab program. Prior Treatments and Tests CABG x 3 (07/11/18) Ongoing cardiac rehab Future Testing and Treatments Planned Ongoing cardiac rehab program Treatment Goals Patient/Caregiver Goals Pt wants to get rid of the upper back pain and improve posture Prior Functional Status Baseline Function- ADL's Independent Baseline Function- Mobility Independent Baseline Function- Gait Indep Baseline Function- Work/School Retired Current Functional Impairments (Reported) Functional Limitations- ADL's Indep with min difficulty to light lifting due to increased in mid back pain and CABG pre -cautions Functional Limitations- Mobility/Gait Indep with pre-cautions to mod /high intensity due to post CABG Functional Limitations- Work/School Retired PT-OP-C Subjective Start: 09/16/18 15:45 Freq: Status: Active Protocol: Document 10/05/18 14:30 EA (Rec: 10/05/18 14:39 EA [id number]) OP-PT Subjective Patient Comments Patient Comments Pt reports followed recommended pain management and mid back pain is much feeling better at this time. Staste pain occurs mostlt with shoulder mobility but not constant. PT-OP-G Mobility & Gait Start: 09/16/18 15:45 Freq: Status: Active Protocol: Document 09/16/18 17:18 EA (Rec: 09/28/18 07:28 EA [id number]) OP Mobility Evaluation Functional Movements Lifting and Carrying 7 lbs lifting pre-cautions OP Gait Assessment Gait Gait Assistance Required: Independent Able to Maintain Weight Bearing Status Yes During Gait Assistive Devices Assistive Device None Gait Deviations General Gait Pattern Antalgic Comments Gait Comments Mild right LE antalgic PT-OP-J Posture/Palpation/Skin Start: 09/16/18 15:45 Freq: Status: Active Protocol: Document 09/16/18 17:18 EA (Rec: 09/28/18 07:28 EA [id number]) Posture Evaluation Position Standing Evaluation View post/lat/ Head/C-Spine Posture Forward Head L-Spine Posture Decreased Lordosis Shoulder Posture (L) Rounded (R) Rounded Scapula Posture (L) Protracted (R) Protracted Pelvis Posture Posterior Tilted Palpation Assessment Location One Palpation Location Left medial scapular border, upper parathoracis, R paralumbars,SIJ Palpation Findings Tenderness PT-OP-K Range of Motion Start: 09/16/18 15:45 Freq: Status: Active Protocol: Document 09/16/18 17:18 EA (Rec: 09/28/18 07:28 EA [id number]) Lumbar Spine Range of Motion Lumbar Spine Active Percentage Testing Position Standing Flexion 40 Extension 15 Rotation Left 40 Rotation Right 40 Lateral Flexion Left 22 Lateral Flexion Right 22 ROM Limitations Soft Tissue Tightness Pain Shoulder Goniometric Range of Motion Shoulder Measured in Degrees Active Shoulder ROM WFL Yes Hip Goniometric Range of Motion Hip Measured in Degrees Left Active Hip ROM WFL Yes Right Active Hip ROM WFL Yes PT-OP-L Special Tests Start: 09/16/18 15:45 Freq: Status: Active Protocol: Document 09/16/18 17:12 EA (Rec: 09/27/18 17:35 EA [id number]) Special Tests Cervical Spine Special Tests Foraminal Compression Test Results negative Lumbar Spine Special Tests Other- 1 Test Results Gaenlen's Test: Positive right Straight Leg Raise Test Results negative Stork Test Test Results negative Slump Test Results negative Other Special Tests Special Tests Trigger Points: positive to medial scapular borders. PT-OP-M Strength Start: 09/16/18 15:45 Freq: Status: Active Protocol: Document 09/16/18 17:12 EA (Rec: 09/27/18 17:35 EA [id number]) Trunk Strength Trunk Manual Muscle Testing Testing Position sup/SL Flexion 5 Normal Extension 5 Normal Rotation Left 4+ Good+ Rotation Right 4+ Good+ Lateral Flexion Left 4+ Good+ Lateral Flexion Right 4+ Good+ Scapula Strength Scapula Manual Muscle Testing Right Elevation (C4) 5 Normal Adduction 5 Normal Depression 5 Normal Left Elevation (C4) 5 Normal Adduction 4- Good- Abduction 5 Normal Depression 5 Normal Shoulder Strength Shoulder Manual Muscle Testing Right Flexion 5 Normal Extension 5 Normal Abduction (C5) 5 Normal Adduction 5 Normal External Rotation 5 Normal Internal Rotation 5 Normal Horizontal Abduction 4 Good Horizontal Adduction 5 Normal Left Flexion 5 Normal Extension 5 Normal Abduction (C5) 5 Normal Adduction 5 Normal External Rotation 4 Good Internal Rotation 5 Normal Horizontal Abduction 4 Good Horizontal Adduction 5 Normal PT-OP-Q Treatments Start: 09/16/18 15:45 Freq: Status: Active Protocol: Document 10/05/18 14:30 EA (Rec: 10/05/18 14:39 EA [id number]) Manual Therapy Treatment Soft Tissue Mobilization 1 Body Location Left mid traps, rhomboids, left paralumbars and SI jnt. Intensity/Depth Moderate Body Position Sidelying Joint Mobilizations 1 Joint caudal glide Grade III Body Position Sidelying PT-OP-R Modalities Start: 09/16/18 15:45 Freq: Status: Active Protocol: Document 10/05/18 14:30 EA (Rec: 10/05/18 14:39 EA [id number]) Electric Stimulation Electric Stimulation Interferential Current (IFC) Body Location left mid traps, rhomboids, paralumbars PT-OP-T Assessment and Plan Start: 09/16/18 15:45 Freq: Status: Active Protocol: Document 10/05/18 14:30 EA (Rec: 10/05/18 14:39 EA [id number]) Physical Therapy Assessment Assessment Summary Assessment Noted left upper lumbars and left wrist bruises which patient concurred from bumping without knowing. Patient had less tenderness over left mid back area. Patient is progressing well. Physical Therapy Plan Next Visit Focus/Plan Next Note Type Treatment Note Next Visit Plan stretch tight muscles, decrease pain. Asses skin after last session STM.
--- NOTE | 2018-10-12 16:08 | PT.OTN ---
Current Diagnoses Dorsalgia, unspecified (10/12/18) Physical Therapy Treatment Note PT-OP-A Visit Information Start: 09/16/18 15:45 Freq: Status: Active Protocol: Document 10/12/18 14:16 EA (Rec: 10/12/18 14:22 EA [id number]) Out-Patient Physical Therapy Visit Information Visit Information Visit Type Treatment Note Visit Start Time 13:45 Visit Stop Time 14:28 Total Visit Minutes 43 Visit Number 3 Number of OUTSOLE SCHEDULER Visits 0 PT-OP-B Current Condition Start: 09/16/18 15:45 Freq: Status: Active Protocol: Document 09/16/18 17:12 EA (Rec: 09/27/18 17:35 EA [id number]) Current Condition History of Current Condition Onset Date ~ 8 years ago Current Complaints Left mid back and R SI joint localized pain History of Current Condition Present c/o low back and mid back pain started gradually over 8 years with no back injuries or significant surgeries. 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 Low back MRI was performed 3 years ago however patient unable to recall results. On 07/11/18 patient underwent tripple CABG and was cleared to cardio rehab 07/18/18 and still currently ongoing with 36 weeks cardio rehab program. Prior Treatments and Tests CABG x 3 (07/11/18) Ongoing cardiac rehab Future Testing and Treatments Planned Ongoing cardiac rehab program Treatment Goals Patient/Caregiver Goals Pt wants to get rid of the upper back pain and improve posture Prior Functional Status Baseline Function- ADL's Independent Baseline Function- Mobility Independent Baseline Function- Gait Indep Baseline Function- Work/School Retired Current Functional Impairments (Reported) Functional Limitations- ADL's Indep with min difficulty to light lifting due to increased in mid back pain and CABG pre -cautions Functional Limitations- Mobility/Gait Indep with pre-cautions to mod /high intensity due to post CABG Functional Limitations- Work/School Retired PT-OP-C Subjective Start: 09/16/18 15:45 Freq: Status: Active Protocol: Document 10/12/18 14:16 EA (Rec: 10/12/18 14:22 EA [id number]) OP-PT Subjective Patient Comments Patient Comments Pt reports left upper back is much feeling better since the session. Pt reports she has the skin bruis at the left lower back and she is now just out of anticoagulant meds. Patient Reported Progress Improving PT-OP-G Mobility & Gait Start: 09/16/18 15:45 Freq: Status: Active Protocol: Document 09/16/18 17:18 EA (Rec: 09/28/18 07:28 EA [id number]) OP Mobility Evaluation Functional Movements Lifting and Carrying 7 lbs lifting pre-cautions OP Gait Assessment Gait Gait Assistance Required: Independent Able to Maintain Weight Bearing Status Yes During Gait Assistive Devices Assistive Device None Gait Deviations General Gait Pattern Antalgic Comments Gait Comments Mild right LE antalgic PT-OP-J Posture/Palpation/Skin Start: 09/16/18 15:45 Freq: Status: Active Protocol: Document 09/16/18 17:18 EA (Rec: 09/28/18 07:28 EA [id number]) Posture Evaluation Position Standing Evaluation View post/lat/ Head/C-Spine Posture Forward Head L-Spine Posture Decreased Lordosis Shoulder Posture (L) Rounded (R) Rounded Scapula Posture (L) Protracted (R) Protracted Pelvis Posture Posterior Tilted Palpation Assessment Location One Palpation Location Left medial scapular border, upper parathoracis, R paralumbars,SIJ Palpation Findings Tenderness PT-OP-K Range of Motion Start: 09/16/18 15:45 Freq: Status: Active Protocol: Document 09/16/18 17:18 EA (Rec: 09/28/18 07:28 EA [id number]) Lumbar Spine Range of Motion Lumbar Spine Active Percentage Testing Position Standing Flexion 40 Extension 15 Rotation Left 40 Rotation Right 40 Lateral Flexion Left 22 Lateral Flexion Right 22 ROM Limitations Soft Tissue Tightness Pain Shoulder Goniometric Range of Motion Shoulder Measured in Degrees Active Shoulder ROM WFL Yes Hip Goniometric Range of Motion Hip Measured in Degrees Left Active Hip ROM WFL Yes Right Active Hip ROM WFL Yes PT-OP-L Special Tests Start: 09/16/18 15:45 Freq: Status: Active Protocol: Document 09/16/18 17:12 EA (Rec: 09/27/18 17:35 EA [id number]) Special Tests Cervical Spine Special Tests Foraminal Compression Test Results negative Lumbar Spine Special Tests Other- 1 Test Results Gaenlen's Test: Positive right Straight Leg Raise Test Results negative Stork Test Test Results negative Slump Test Results negative Other Special Tests Special Tests Trigger Points: positive to medial scapular borders. PT-OP-M Strength Start: 09/16/18 15:45 Freq: Status: Active Protocol: Document 09/16/18 17:12 EA (Rec: 09/27/18 17:35 EA [id number]) Trunk Strength Trunk Manual Muscle Testing Testing Position sup/SL Flexion 5 Normal Extension 5 Normal Rotation Left 4+ Good+ Rotation Right 4+ Good+ Lateral Flexion Left 4+ Good+ Lateral Flexion Right 4+ Good+ Scapula Strength Scapula Manual Muscle Testing Right Elevation (C4) 5 Normal Adduction 5 Normal Depression 5 Normal Left Elevation (C4) 5 Normal Adduction 4- Good- Abduction 5 Normal Depression 5 Normal Shoulder Strength Shoulder Manual Muscle Testing Right Flexion 5 Normal Extension 5 Normal Abduction (C5) 5 Normal Adduction 5 Normal External Rotation 5 Normal Internal Rotation 5 Normal Horizontal Abduction 4 Good Horizontal Adduction 5 Normal Left Flexion 5 Normal Extension 5 Normal Abduction (C5) 5 Normal Adduction 5 Normal External Rotation 4 Good Internal Rotation 5 Normal Horizontal Abduction 4 Good Horizontal Adduction 5 Normal PT-OP-Q Treatments Start: 09/16/18 15:45 Freq: Status: Active Protocol: Document 10/12/18 14:16 EA (Rec: 10/12/18 14:22 EA [id number]) Manual Therapy Treatment Soft Tissue Mobilization 1 Body Location Left mid traps, rhomboids, left SI jnt. Intensity/Depth Moderate Body Position Sidelying PT-OP-R Modalities Start: 09/16/18 15:45 Freq: Status: Active Protocol: Document 10/12/18 14:16 EA (Rec: 10/12/18 14:22 EA [id number]) Electric Stimulation Electric Stimulation Interferential Current (IFC) Body Location left mid traps, rhomboids, paralumbars PT-OP-T Assessment and Plan Start: 09/16/18 15:45 Freq: Status: Active Protocol: Document 10/12/18 14:16 EA (Rec: 10/12/18 14:22 EA [id number]) Physical Therapy Assessment Assessment Summary Assessment Patient upper back is less tender at this time. Patient is progressing well. Physical Therapy Plan Next Visit Focus/Plan Next Note Type Treatment Note Next Visit Plan stretch tight muscles, decrease pain. Asses skin after last session STM.
--- NOTE | 2018-10-15 11:32 | PT.OTN ---
Current Diagnoses Dorsalgia, unspecified (10/15/18) Physical Therapy Treatment Note PT-OP-A Visit Information Start: 09/16/18 15:45 Freq: Status: Active Protocol: Document 10/15/18 11:20 SA (Rec: 10/15/18 11:30 SA [id number]) Out-Patient Physical Therapy Visit Information Visit Information Visit Type Treatment Note Visit Start Time 09:45 Visit Stop Time 10:31 Total Visit Minutes 46 Visit Number 4 Number of TITLE CLOSER Visits 1 PT-OP-B Current Condition Start: 09/16/18 15:45 Freq: Status: Active Protocol: Document 09/16/18 17:12 EA (Rec: 09/27/18 17:35 EA [id number]) Current Condition History of Current Condition Onset Date ~ 8 years ago Current Complaints Left mid back and R SI joint localized pain History of Current Condition Present c/o low back and mid back pain started gradually over 8 years with no back injuries or significant surgeries. 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 Low back MRI was performed 3 years ago however patient unable to recall results. On 07/11/18 patient underwent tripple CABG and was cleared to cardio rehab 07/18/18 and still currently ongoing with 36 weeks cardio rehab program. Prior Treatments and Tests CABG x 3 (07/11/18) Ongoing cardiac rehab Future Testing and Treatments Planned Ongoing cardiac rehab program Treatment Goals Patient/Caregiver Goals Pt wants to get rid of the upper back pain and improve posture Prior Functional Status Baseline Function- ADL's Independent Baseline Function- Mobility Independent Baseline Function- Gait Indep Baseline Function- Work/School Retired Current Functional Impairments (Reported) Functional Limitations- ADL's Indep with min difficulty to light lifting due to increased in mid back pain and CABG pre -cautions Functional Limitations- Mobility/Gait Indep with pre-cautions to mod /high intensity due to post CABG Functional Limitations- Work/School Retired PT-OP-C Subjective Start: 09/16/18 15:45 Freq: Status: Active Protocol: Document 10/15/18 11:31 SA (Rec: 10/15/18 11:32 SA [id number]) OP-PT Subjective Patient Comments Patient Comments The massage and E-stim seemed to really help last time and I 've been using heat at home. Patient Reported Progress Improving PT-OP-G Mobility & Gait Start: 09/16/18 15:45 Freq: Status: Active Protocol: Document 09/16/18 17:18 EA (Rec: 09/28/18 07:28 EA [id number]) OP Mobility Evaluation Functional Movements Lifting and Carrying 7 lbs lifting pre-cautions OP Gait Assessment Gait Gait Assistance Required: Independent Able to Maintain Weight Bearing Status Yes During Gait Assistive Devices Assistive Device None Gait Deviations General Gait Pattern Antalgic Comments Gait Comments Mild right LE antalgic PT-OP-J Posture/Palpation/Skin Start: 09/16/18 15:45 Freq: Status: Active Protocol: Document 09/16/18 17:18 EA (Rec: 09/28/18 07:28 EA [id number]) Posture Evaluation Position Standing Evaluation View post/lat/ Head/C-Spine Posture Forward Head L-Spine Posture Decreased Lordosis Shoulder Posture (L) Rounded (R) Rounded Scapula Posture (L) Protracted (R) Protracted Pelvis Posture Posterior Tilted Palpation Assessment Location One Palpation Location Left medial scapular border, upper parathoracis, R paralumbars,SIJ Palpation Findings Tenderness PT-OP-K Range of Motion Start: 09/16/18 15:45 Freq: Status: Active Protocol: Document 09/16/18 17:18 EA (Rec: 09/28/18 07:28 EA [id number]) Lumbar Spine Range of Motion Lumbar Spine Active Percentage Testing Position Standing Flexion 40 Extension 15 Rotation Left 40 Rotation Right 40 Lateral Flexion Left 22 Lateral Flexion Right 22 ROM Limitations Soft Tissue Tightness Pain Shoulder Goniometric Range of Motion Shoulder Measured in Degrees Active Shoulder ROM WFL Yes Hip Goniometric Range of Motion Hip Measured in Degrees Left Active Hip ROM WFL Yes Right Active Hip ROM WFL Yes PT-OP-L Special Tests Start: 09/16/18 15:45 Freq: Status: Active Protocol: Document 09/16/18 17:12 EA (Rec: 09/27/18 17:35 EA [id number]) Special Tests Cervical Spine Special Tests Foraminal Compression Test Results negative Lumbar Spine Special Tests Other- 1 Test Results Gaenlen's Test: Positive right Straight Leg Raise Test Results negative Stork Test Test Results negative Slump Test Results negative Other Special Tests Special Tests Trigger Points: positive to medial scapular borders. PT-OP-M Strength Start: 09/16/18 15:45 Freq: Status: Active Protocol: Document 09/16/18 17:12 EA (Rec: 09/27/18 17:35 EA [id number]) Trunk Strength Trunk Manual Muscle Testing Testing Position sup/SL Flexion 5 Normal Extension 5 Normal Rotation Left 4+ Good+ Rotation Right 4+ Good+ Lateral Flexion Left 4+ Good+ Lateral Flexion Right 4+ Good+ Scapula Strength Scapula Manual Muscle Testing Right Elevation (C4) 5 Normal Adduction 5 Normal Depression 5 Normal Left Elevation (C4) 5 Normal Adduction 4- Good- Abduction 5 Normal Depression 5 Normal Shoulder Strength Shoulder Manual Muscle Testing Right Flexion 5 Normal Extension 5 Normal Abduction (C5) 5 Normal Adduction 5 Normal External Rotation 5 Normal Internal Rotation 5 Normal Horizontal Abduction 4 Good Horizontal Adduction 5 Normal Left Flexion 5 Normal Extension 5 Normal Abduction (C5) 5 Normal Adduction 5 Normal External Rotation 4 Good Internal Rotation 5 Normal Horizontal Abduction 4 Good Horizontal Adduction 5 Normal PT-OP-Q Treatments Start: 09/16/18 15:45 Freq: Status: Active Protocol: Document 10/15/18 11:20 SA (Rec: 10/15/18 11:30 SA [id number]) Therapeutic Exercises Sitting Exercises Seatd UT/Scalenes stretching Reps/Minutes 30 x 2 each side Comments Focus on scapula down and posture Standing Exercises Wall/posture stretch Reps/Minutes 20-30 seconds x 3 Manual Therapy Treatment Soft Tissue Mobilization R upper traps/scalens/ pecs Mobilization Type Myofascial Release Rolling Strumming Trigger Point Release Intensity/Depth Moderate Body Position Supine Comments Pt presents with tight pectorials promoting rounded and forward head posture. 1 Body Location Left mid traps, rhomboids, left SI jnt. Intensity/Depth Moderate Body Position prone with pillow PT-OP-R Modalities Start: 09/16/18 15:45 Freq: Status: Active Protocol: Document 10/15/18 11:31 SA (Rec: 10/15/18 11:32 SA [id number]) Electric Stimulation Electric Stimulation Interferential Current (IFC) Body Location left mid traps, rhomboids, paralumbars Duration (Minutes) 15 Combined With Heat/Cold Hot Pack Comments Pt tolerated well in prone position. PT-OP-T Assessment and Plan Start: 09/16/18 15:45 Freq: Status: Active Protocol: Document 10/15/18 11:20 SA (Rec: 10/15/18 11:30 SA [email or web address]) Physical Therapy Assessment Assessment Summary Assessment Pt progressing with decreased lower back pain, R thoracic and interscapular area most painful at present. Noted elevated shoulders and forward head posture in standing. Physical Therapy Plan Next Visit Focus/Plan Next Note Type Treatment Note Next Visit Plan Pt to focus on standing or supine postural stretch for thoracic EXT and B upper trap and scalene stretches as HEP, handout provided. Re-assess response next visit.
--- NOTE | 2018-10-19 10:30 | PT.OTN ---
Current Diagnoses Dorsalgia, unspecified (10/19/18) Physical Therapy Treatment Note PT-OP-A Visit Information Start: 09/16/18 15:45 Freq: Status: Active Protocol: Document 10/19/18 10:20 EA (Rec: 10/19/18 10:27 EA [id number]) Out-Patient Physical Therapy Visit Information Visit Information Visit Type Treatment Note Visit Start Time 09:45 Visit Stop Time 10:30 Total Visit Minutes 45 Visit Number 5 Number of BEVEL OPERATOR Visits 1 PT-OP-B Current Condition Start: 09/16/18 15:45 Freq: Status: Active Protocol: Document 09/16/18 17:12 EA (Rec: 09/27/18 17:35 EA [id number]) Current Condition History of Current Condition Onset Date ~ 8 years ago Current Complaints Left mid back and R SI joint localized pain History of Current Condition Present c/o low back and mid back pain started gradually over 8 years with no back injuries or significant surgeries. 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 Low back MRI was performed 3 years ago however patient unable to recall results. On 07/11/18 patient underwent tripple CABG and was cleared to cardio rehab 07/18/18 and still currently ongoing with 36 weeks cardio rehab program. Prior Treatments and Tests CABG x 3 (07/11/18) Ongoing cardiac rehab Future Testing and Treatments Planned Ongoing cardiac rehab program Treatment Goals Patient/Caregiver Goals Pt wants to get rid of the upper back pain and improve posture Prior Functional Status Baseline Function- ADL's Independent Baseline Function- Mobility Independent Baseline Function- Gait Indep Baseline Function- Work/School Retired Current Functional Impairments (Reported) Functional Limitations- ADL's Indep with min difficulty to light lifting due to increased in mid back pain and CABG pre -cautions Functional Limitations- Mobility/Gait Indep with pre-cautions to mod /high intensity due to post CABG Functional Limitations- Work/School Retired PT-OP-C Subjective Start: 09/16/18 15:45 Freq: Status: Active Protocol: Document 10/19/18 10:20 EA (Rec: 10/19/18 10:27 EA [id number]) OP-PT Subjective Patient Comments Patient Comments Patient reports left upper and mid back is much improving and lower left back is still hurt upon waking up in the morning but got better upon starting to move. Patient also reports that left ant chest was hurt after lifting her grandson but is getting better at this time. Patient Reported Progress Improving PT-OP-G Mobility & Gait Start: 09/16/18 15:45 Freq: Status: Active Protocol: Document 09/16/18 17:18 EA (Rec: 09/28/18 07:28 EA [id number]) OP Mobility Evaluation Functional Movements Lifting and Carrying 7 lbs lifting pre-cautions OP Gait Assessment Gait Gait Assistance Required: Independent Able to Maintain Weight Bearing Status Yes During Gait Assistive Devices Assistive Device None Gait Deviations General Gait Pattern Antalgic Comments Gait Comments Mild right LE antalgic PT-OP-J Posture/Palpation/Skin Start: 09/16/18 15:45 Freq: Status: Active Protocol: Document 09/16/18 17:18 EA (Rec: 09/28/18 07:28 EA [id number]) Posture Evaluation Position Standing Evaluation View post/lat/ Head/C-Spine Posture Forward Head L-Spine Posture Decreased Lordosis Shoulder Posture (L) Rounded (R) Rounded Scapula Posture (L) Protracted (R) Protracted Pelvis Posture Posterior Tilted Palpation Assessment Location One Palpation Location Left medial scapular border, upper parathoracis, R paralumbars,SIJ Palpation Findings Tenderness PT-OP-K Range of Motion Start: 09/16/18 15:45 Freq: Status: Active Protocol: Document 09/16/18 17:18 EA (Rec: 09/28/18 07:28 EA [id number]) Lumbar Spine Range of Motion Lumbar Spine Active Percentage Testing Position Standing Flexion 40 Extension 15 Rotation Left 40 Rotation Right 40 Lateral Flexion Left 22 Lateral Flexion Right 22 ROM Limitations Soft Tissue Tightness Pain Shoulder Goniometric Range of Motion Shoulder Measured in Degrees Active Shoulder ROM WFL Yes Hip Goniometric Range of Motion Hip Measured in Degrees Left Active Hip ROM WFL Yes Right Active Hip ROM WFL Yes PT-OP-L Special Tests Start: 09/16/18 15:45 Freq: Status: Active Protocol: Document 09/16/18 17:12 EA (Rec: 09/27/18 17:35 EA [id number]) Special Tests Cervical Spine Special Tests Foraminal Compression Test Results negative Lumbar Spine Special Tests Other- 1 Test Results Gaenlen's Test: Positive right Straight Leg Raise Test Results negative Stork Test Test Results negative Slump Test Results negative Other Special Tests Special Tests Trigger Points: positive to medial scapular borders. PT-OP-M Strength Start: 09/16/18 15:45 Freq: Status: Active Protocol: Document 09/16/18 17:12 EA (Rec: 09/27/18 17:35 EA [id number]) Trunk Strength Trunk Manual Muscle Testing Testing Position sup/SL Flexion 5 Normal Extension 5 Normal Rotation Left 4+ Good+ Rotation Right 4+ Good+ Lateral Flexion Left 4+ Good+ Lateral Flexion Right 4+ Good+ Scapula Strength Scapula Manual Muscle Testing Right Elevation (C4) 5 Normal Adduction 5 Normal Depression 5 Normal Left Elevation (C4) 5 Normal Adduction 4- Good- Abduction 5 Normal Depression 5 Normal Shoulder Strength Shoulder Manual Muscle Testing Right Flexion 5 Normal Extension 5 Normal Abduction (C5) 5 Normal Adduction 5 Normal External Rotation 5 Normal Internal Rotation 5 Normal Horizontal Abduction 4 Good Horizontal Adduction 5 Normal Left Flexion 5 Normal Extension 5 Normal Abduction (C5) 5 Normal Adduction 5 Normal External Rotation 4 Good Internal Rotation 5 Normal Horizontal Abduction 4 Good Horizontal Adduction 5 Normal PT-OP-Q Treatments Start: 09/16/18 15:45 Freq: Status: Active Protocol: Document 10/19/18 10:20 EA (Rec: 10/19/18 10:27 EA [id number]) Manual Therapy Treatment Soft Tissue Mobilization 1 Body Location Left mid traps, rhomboids, left SI jnt. Intensity/Depth Moderate Body Position prone with pillow PT-OP-R Modalities Start: 09/16/18 15:45 Freq: Status: Active Protocol: Document 10/19/18 10:20 EA (Rec: 10/19/18 10:27 EA [id number]) Electric Stimulation Electric Stimulation Interferential Current (IFC) Body Location left mid traps, rhomboids, paralumbars Duration (Minutes) 15 Combined With Heat/Cold Hot Pack Comments Pt tolerated well in prone position. Ultrasound Therapy Treatment Left Upper Back Treatment Duration (minutes) 5 Patient Position Sidelying Frequency Setting (mHz) 1 Intensity Setting (w/cm2) 1.0 Comments Left mid and low traps, rhomboids. PT-OP-T Assessment and Plan Start: 09/16/18 15:45 Freq: Status: Active Protocol: Document 10/19/18 10:20 EA (Rec: 10/19/18 10:27 EA [id number]) Physical Therapy Assessment Assessment Summary Assessment Patient cont. to progress and she is more compliant with HEP and pain management. Quick assessment to left pectoral shows no significant soft tissue damage. Patient to follow up after 2 wks. Physical Therapy Plan Next Visit Focus/Plan Next Note Type Treatment Note Next Visit Plan Re-assess.
--- NOTE | 2018-10-21 13:57 | PT.OTN ---
Current Diagnoses Dorsalgia, unspecified (10/21/18) Physical Therapy Treatment Note PT-OP-A Visit Information Start: 09/16/18 15:45 Freq: Status: Active Protocol: Document 10/21/18 13:36 EA (Rec: 10/21/18 13:46 EA [id number]) Out-Patient Physical Therapy Visit Information Visit Information Visit Type Treatment Note Visit Start Time 13:00 Visit Stop Time 13:45 Total Visit Minutes 45 Visit Number 6 Number of CONTROL SPECIALIST Visits 1 PT-OP-B Current Condition Start: 09/16/18 15:45 Freq: Status: Active Protocol: Document 09/16/18 17:12 EA (Rec: 09/27/18 17:35 EA [id number]) Current Condition History of Current Condition Onset Date ~ 8 years ago Current Complaints Left mid back and R SI joint localized pain History of Current Condition Present c/o low back and mid back pain started gradually over 8 years with no back injuries or significant surgeries. 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 Low back MRI was performed 3 years ago however patient unable to recall results. On 07/11/18 patient underwent tripple CABG and was cleared to cardio rehab 07/18/18 and still currently ongoing with 36 weeks cardio rehab program. Prior Treatments and Tests CABG x 3 (07/11/18) Ongoing cardiac rehab Future Testing and Treatments Planned Ongoing cardiac rehab program Treatment Goals Patient/Caregiver Goals Pt wants to get rid of the upper back pain and improve posture Prior Functional Status Baseline Function- ADL's Independent Baseline Function- Mobility Independent Baseline Function- Gait Indep Baseline Function- Work/School Retired Current Functional Impairments (Reported) Functional Limitations- ADL's Indep with min difficulty to light lifting due to increased in mid back pain and CABG pre -cautions Functional Limitations- Mobility/Gait Indep with pre-cautions to mod /high intensity due to post CABG Functional Limitations- Work/School Retired PT-OP-C Subjective Start: 09/16/18 15:45 Freq: Status: Active Protocol: Document 10/21/18 13:36 EA (Rec: 10/21/18 13:46 EA [id number]) OP-PT Subjective Patient Comments Patient Comments Pt reports upper back pain is less but low back is quite sore this morning and lsightly bettter as days goes. Patient Reported Progress Improving PT-OP-G Mobility & Gait Start: 09/16/18 15:45 Freq: Status: Active Protocol: Document 09/16/18 17:18 EA (Rec: 09/28/18 07:28 EA [id number]) OP Mobility Evaluation Functional Movements Lifting and Carrying 7 lbs lifting pre-cautions OP Gait Assessment Gait Gait Assistance Required: Independent Able to Maintain Weight Bearing Status Yes During Gait Assistive Devices Assistive Device None Gait Deviations General Gait Pattern Antalgic Comments Gait Comments Mild right LE antalgic PT-OP-J Posture/Palpation/Skin Start: 09/16/18 15:45 Freq: Status: Active Protocol: Document 09/16/18 17:18 EA (Rec: 09/28/18 07:28 EA [id number]) Posture Evaluation Position Standing Evaluation View post/lat/ Head/C-Spine Posture Forward Head L-Spine Posture Decreased Lordosis Shoulder Posture (L) Rounded (R) Rounded Scapula Posture (L) Protracted (R) Protracted Pelvis Posture Posterior Tilted Palpation Assessment Location One Palpation Location Left medial scapular border, upper parathoracis, R paralumbars,SIJ Palpation Findings Tenderness PT-OP-K Range of Motion Start: 09/16/18 15:45 Freq: Status: Active Protocol: Document 09/16/18 17:18 EA (Rec: 09/28/18 07:28 EA [id number]) Lumbar Spine Range of Motion Lumbar Spine Active Percentage Testing Position Standing Flexion 40 Extension 15 Rotation Left 40 Rotation Right 40 Lateral Flexion Left 22 Lateral Flexion Right 22 ROM Limitations Soft Tissue Tightness Pain Shoulder Goniometric Range of Motion Shoulder Measured in Degrees Active Shoulder ROM WFL Yes Hip Goniometric Range of Motion Hip Measured in Degrees Left Active Hip ROM WFL Yes Right Active Hip ROM WFL Yes PT-OP-L Special Tests Start: 09/16/18 15:45 Freq: Status: Active Protocol: Document 09/16/18 17:12 EA (Rec: 09/27/18 17:35 EA [id number]) Special Tests Cervical Spine Special Tests Foraminal Compression Test Results negative Lumbar Spine Special Tests Other- 1 Test Results Gaenlen's Test: Positive right Straight Leg Raise Test Results negative Stork Test Test Results negative Slump Test Results negative Other Special Tests Special Tests Trigger Points: positive to medial scapular borders. PT-OP-M Strength Start: 09/16/18 15:45 Freq: Status: Active Protocol: Document 09/16/18 17:12 EA (Rec: 09/27/18 17:35 EA [id number]) Trunk Strength Trunk Manual Muscle Testing Testing Position sup/SL Flexion 5 Normal Extension 5 Normal Rotation Left 4+ Good+ Rotation Right 4+ Good+ Lateral Flexion Left 4+ Good+ Lateral Flexion Right 4+ Good+ Scapula Strength Scapula Manual Muscle Testing Right Elevation (C4) 5 Normal Adduction 5 Normal Depression 5 Normal Left Elevation (C4) 5 Normal Adduction 4- Good- Abduction 5 Normal Depression 5 Normal Shoulder Strength Shoulder Manual Muscle Testing Right Flexion 5 Normal Extension 5 Normal Abduction (C5) 5 Normal Adduction 5 Normal External Rotation 5 Normal Internal Rotation 5 Normal Horizontal Abduction 4 Good Horizontal Adduction 5 Normal Left Flexion 5 Normal Extension 5 Normal Abduction (C5) 5 Normal Adduction 5 Normal External Rotation 4 Good Internal Rotation 5 Normal Horizontal Abduction 4 Good Horizontal Adduction 5 Normal PT-OP-Q Treatments Start: 09/16/18 15:45 Freq: Status: Active Protocol: Document 10/21/18 13:36 EA (Rec: 10/21/18 13:46 EA [id number]) Therapeutic Exercises Sitting Exercises 2 Sitting Exercise Name Horiz ADDuction Resistance Lv1 TB Reps/Minutes x 10 reps Comments HEP 1 Sitting Exercise Name Pectoral stretch: hand behind with scapular adduc motion Reps/Minutes x 10 reps x 2 secs hold Comments HEP Standing Exercises Wall/posture stretch Reps/Minutes 20-30 seconds x 3 Manual Therapy Treatment Soft Tissue Mobilization 1 Body Location Left low traps, rhomboids, left SI jnt. Intensity/Depth Moderate Body Position prone with pillow PT-OP-R Modalities Start: 09/16/18 15:45 Freq: Status: Active Protocol: Document 10/21/18 13:36 EA (Rec: 10/21/18 13:46 EA [id number]) Electric Stimulation Electric Stimulation Interferential Current (IFC) Body Location left low traps paralumbars Duration (Minutes) 15 Combined With Heat/Cold Hot Pack Comments Pt tolerated well in prone position. PT-OP-T Assessment and Plan Start: 09/16/18 15:45 Freq: Status: Active Protocol: Document 10/21/18 13:36 EA (Rec: 10/21/18 13:46 EA [id number]) Physical Therapy Assessment Progress Towards Goals Progress Towards Goals Progressing Toward Goals Assessment Summary Assessment Tolerated treatment well. Patient is progressing well. Cont with current plan. Physical Therapy Plan Next Visit Focus/Plan Next Note Type Treatment Note
--- NOTE | 2018-10-25 15:32 | PT.OTN ---
Current Diagnoses Dorsalgia, unspecified (10/25/18) Physical Therapy Treatment Note PT-OP-A Visit Information Start: 09/16/18 15:45 Freq: Status: Active Protocol: Document 10/25/18 12:43 EA (Rec: 10/25/18 12:49 EA [id number]) Out-Patient Physical Therapy Visit Information Visit Information Visit Type Treatment Note Visit Start Time 12:15 Visit Stop Time 12:55 Total Visit Minutes 40 Visit Number 7 Number of BUTTING SAW OPERATOR Visits 1 PT-OP-B Current Condition Start: 09/16/18 15:45 Freq: Status: Active Protocol: Document 09/16/18 17:12 EA (Rec: 09/27/18 17:35 EA [id number]) Current Condition History of Current Condition Onset Date ~ 8 years ago Current Complaints Left mid back and R SI joint localized pain History of Current Condition Present c/o low back and mid back pain started gradually over 8 years with no back injuries or significant surgeries. 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 Low back MRI was performed 3 years ago however patient unable to recall results. On 07/11/18 patient underwent tripple CABG and was cleared to cardio rehab 07/18/18 and still currently ongoing with 36 weeks cardio rehab program. Prior Treatments and Tests CABG x 3 (07/11/18) Ongoing cardiac rehab Future Testing and Treatments Planned Ongoing cardiac rehab program Treatment Goals Patient/Caregiver Goals Pt wants to get rid of the upper back pain and improve posture Prior Functional Status Baseline Function- ADL's Independent Baseline Function- Mobility Independent Baseline Function- Gait Indep Baseline Function- Work/School Retired Current Functional Impairments (Reported) Functional Limitations- ADL's Indep with min difficulty to light lifting due to increased in mid back pain and CABG pre -cautions Functional Limitations- Mobility/Gait Indep with pre-cautions to mod /high intensity due to post CABG Functional Limitations- Work/School Retired PT-OP-C Subjective Start: 09/16/18 15:45 Freq: Status: Active Protocol: Document 10/25/18 12:43 EA (Rec: 10/25/18 12:49 EA [id number]) OP-PT Subjective Patient Comments Patient Comments Pt reports upper back pain is less frequent but low back still bothers her; states was able to perform back stretches whil at the cardiorehab session. Patient Reported Progress Improving PT-OP-G Mobility & Gait Start: 09/16/18 15:45 Freq: Status: Active Protocol: Document 09/16/18 17:18 EA (Rec: 09/28/18 07:28 EA [id number]) OP Mobility Evaluation Functional Movements Lifting and Carrying 7 lbs lifting pre-cautions OP Gait Assessment Gait Gait Assistance Required: Independent Able to Maintain Weight Bearing Status Yes During Gait Assistive Devices Assistive Device None Gait Deviations General Gait Pattern Antalgic Comments Gait Comments Mild right LE antalgic PT-OP-J Posture/Palpation/Skin Start: 09/16/18 15:45 Freq: Status: Active Protocol: Document 09/16/18 17:18 EA (Rec: 09/28/18 07:28 EA [id number]) Posture Evaluation Position Standing Evaluation View post/lat/ Head/C-Spine Posture Forward Head L-Spine Posture Decreased Lordosis Shoulder Posture (L) Rounded (R) Rounded Scapula Posture (L) Protracted (R) Protracted Pelvis Posture Posterior Tilted Palpation Assessment Location One Palpation Location Left medial scapular border, upper parathoracis, R paralumbars,SIJ Palpation Findings Tenderness PT-OP-K Range of Motion Start: 09/16/18 15:45 Freq: Status: Active Protocol: Document 09/16/18 17:18 EA (Rec: 09/28/18 07:28 EA [id number]) Lumbar Spine Range of Motion Lumbar Spine Active Percentage Testing Position Standing Flexion 40 Extension 15 Rotation Left 40 Rotation Right 40 Lateral Flexion Left 22 Lateral Flexion Right 22 ROM Limitations Soft Tissue Tightness Pain Shoulder Goniometric Range of Motion Shoulder Measured in Degrees Active Shoulder ROM WFL Yes Hip Goniometric Range of Motion Hip Measured in Degrees Left Active Hip ROM WFL Yes Right Active Hip ROM WFL Yes PT-OP-L Special Tests Start: 09/16/18 15:45 Freq: Status: Active Protocol: Document 09/16/18 17:12 EA (Rec: 09/27/18 17:35 EA [id number]) Special Tests Cervical Spine Special Tests Foraminal Compression Test Results negative Lumbar Spine Special Tests Other- 1 Test Results Gaenlen's Test: Positive right Straight Leg Raise Test Results negative Stork Test Test Results negative Slump Test Results negative Other Special Tests Special Tests Trigger Points: positive to medial scapular borders. PT-OP-M Strength Start: 09/16/18 15:45 Freq: Status: Active Protocol: Document 09/16/18 17:12 EA (Rec: 09/27/18 17:35 EA [id number]) Trunk Strength Trunk Manual Muscle Testing Testing Position sup/SL Flexion 5 Normal Extension 5 Normal Rotation Left 4+ Good+ Rotation Right 4+ Good+ Lateral Flexion Left 4+ Good+ Lateral Flexion Right 4+ Good+ Scapula Strength Scapula Manual Muscle Testing Right Elevation (C4) 5 Normal Adduction 5 Normal Depression 5 Normal Left Elevation (C4) 5 Normal Adduction 4- Good- Abduction 5 Normal Depression 5 Normal Shoulder Strength Shoulder Manual Muscle Testing Right Flexion 5 Normal Extension 5 Normal Abduction (C5) 5 Normal Adduction 5 Normal External Rotation 5 Normal Internal Rotation 5 Normal Horizontal Abduction 4 Good Horizontal Adduction 5 Normal Left Flexion 5 Normal Extension 5 Normal Abduction (C5) 5 Normal Adduction 5 Normal External Rotation 4 Good Internal Rotation 5 Normal Horizontal Abduction 4 Good Horizontal Adduction 5 Normal PT-OP-Q Treatments Start: 09/16/18 15:45 Freq: Status: Active Protocol: Document 10/25/18 12:43 EA (Rec: 10/25/18 12:49 EA [id number]) Therapeutic Exercises Sidelying Exercises 1 Sidelying Exercise Name left arm straight thoracic rotation Reps/Minutes x 15 reps x 2 Sitting Exercises 2 Sitting Exercise Name Horiz ADDuction Resistance Lv1 TB Reps/Minutes x 10 reps Comments HEP 1 Sitting Exercise Name Pectoral stretch: hand behind with scapular adduc motion Reps/Minutes x 10 reps x 2 secs hold Comments HEP Manual Therapy Treatment Soft Tissue Mobilization 1 Body Location Left low traps, rhomboids, left SI jnt. Intensity/Depth Moderate Body Position prone with pillow PT-OP-R Modalities Start: 09/16/18 15:45 Freq: Status: Active Protocol: Document 10/25/18 12:43 EA (Rec: 10/25/18 12:49 EA [id number]) Electric Stimulation Electric Stimulation Interferential Current (IFC) Body Location left low traps paralumbars Duration (Minutes) 15 Combined With Heat/Cold Hot Pack Comments Pt tolerated well in prone position. PT-OP-T Assessment and Plan Start: 09/16/18 15:45 Freq: Status: Active Protocol: Document 10/25/18 12:43 EA (Rec: 10/25/18 12:49 EA [id number]) Physical Therapy Assessment Assessment Summary Assessment No discomfort noted with thoracic rotation. Tender spots to upper back is much very less after manual PT. Physical Therapy Plan Next Visit Focus/Plan Next Note Type Treatment Note
--- NOTE | 2018-10-28 13:03 | PT.OTN ---
Current Diagnoses Dorsalgia, unspecified (10/28/18) Physical Therapy Treatment Note PT-OP-A Visit Information Start: 09/16/18 15:45 Freq: Status: Active Protocol: Document 10/28/18 12:45 EA (Rec: 10/28/18 12:51 EA [id number]) Out-Patient Physical Therapy Visit Information Visit Information Visit Type Treatment Note Visit Start Time 12:15 Visit Stop Time 12:55 Total Visit Minutes 40 Visit Number 8 Number of POLICE COMMUNICATIONS OPERATOR Visits 1 PT-OP-B Current Condition Start: 09/16/18 15:45 Freq: Status: Active Protocol: Document 09/16/18 17:12 EA (Rec: 09/27/18 17:35 EA [id number]) Current Condition History of Current Condition Onset Date ~ 8 years ago Current Complaints Left mid back and R SI joint localized pain History of Current Condition Present c/o low back and mid back pain started gradually over 8 years with no back injuries or significant surgeries. 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 Low back MRI was performed 3 years ago however patient unable to recall results. On 07/11/18 patient underwent tripple CABG and was cleared to cardio rehab 07/18/18 and still currently ongoing with 36 weeks cardio rehab program. Prior Treatments and Tests CABG x 3 (07/11/18) Ongoing cardiac rehab Future Testing and Treatments Planned Ongoing cardiac rehab program Treatment Goals Patient/Caregiver Goals Pt wants to get rid of the upper back pain and improve posture Prior Functional Status Baseline Function- ADL's Independent Baseline Function- Mobility Independent Baseline Function- Gait Indep Baseline Function- Work/School Retired Current Functional Impairments (Reported) Functional Limitations- ADL's Indep with min difficulty to light lifting due to increased in mid back pain and CABG pre -cautions Functional Limitations- Mobility/Gait Indep with pre-cautions to mod /high intensity due to post CABG Functional Limitations- Work/School Retired PT-OP-C Subjective Start: 09/16/18 15:45 Freq: Status: Active Protocol: Document 10/28/18 12:45 EA (Rec: 10/28/18 12:51 EA [id number]) OP-PT Subjective Patient Comments Patient Comments Pt reports whole midback is quite sore after cardio rehab exercises; denies chest or jaw pain when mid back hurts; states activites does not affect pain intensity. Patient Reported Progress Improving PT-OP-G Mobility & Gait Start: 09/16/18 15:45 Freq: Status: Active Protocol: Document 09/16/18 17:18 EA (Rec: 09/28/18 07:28 EA [id number]) OP Mobility Evaluation Functional Movements Lifting and Carrying 7 lbs lifting pre-cautions OP Gait Assessment Gait Gait Assistance Required: Independent Able to Maintain Weight Bearing Status Yes During Gait Assistive Devices Assistive Device None Gait Deviations General Gait Pattern Antalgic Comments Gait Comments Mild right LE antalgic PT-OP-J Posture/Palpation/Skin Start: 09/16/18 15:45 Freq: Status: Active Protocol: Document 09/16/18 17:18 EA (Rec: 09/28/18 07:28 EA [id number]) Posture Evaluation Position Standing Evaluation View post/lat/ Head/C-Spine Posture Forward Head L-Spine Posture Decreased Lordosis Shoulder Posture (L) Rounded (R) Rounded Scapula Posture (L) Protracted (R) Protracted Pelvis Posture Posterior Tilted Palpation Assessment Location One Palpation Location Left medial scapular border, upper parathoracis, R paralumbars,SIJ Palpation Findings Tenderness PT-OP-K Range of Motion Start: 09/16/18 15:45 Freq: Status: Active Protocol: Document 09/16/18 17:18 EA (Rec: 09/28/18 07:28 EA [id number]) Lumbar Spine Range of Motion Lumbar Spine Active Percentage Testing Position Standing Flexion 40 Extension 15 Rotation Left 40 Rotation Right 40 Lateral Flexion Left 22 Lateral Flexion Right 22 ROM Limitations Soft Tissue Tightness Pain Shoulder Goniometric Range of Motion Shoulder Measured in Degrees Active Shoulder ROM WFL Yes Hip Goniometric Range of Motion Hip Measured in Degrees Left Active Hip ROM WFL Yes Right Active Hip ROM WFL Yes PT-OP-L Special Tests Start: 09/16/18 15:45 Freq: Status: Active Protocol: Document 09/16/18 17:12 EA (Rec: 09/27/18 17:35 EA [id number]) Special Tests Cervical Spine Special Tests Foraminal Compression Test Results negative Lumbar Spine Special Tests Other- 1 Test Results Gaenlen's Test: Positive right Straight Leg Raise Test Results negative Stork Test Test Results negative Slump Test Results negative Other Special Tests Special Tests Trigger Points: positive to medial scapular borders. PT-OP-M Strength Start: 09/16/18 15:45 Freq: Status: Active Protocol: Document 09/16/18 17:12 EA (Rec: 09/27/18 17:35 EA [id number]) Trunk Strength Trunk Manual Muscle Testing Testing Position sup/SL Flexion 5 Normal Extension 5 Normal Rotation Left 4+ Good+ Rotation Right 4+ Good+ Lateral Flexion Left 4+ Good+ Lateral Flexion Right 4+ Good+ Scapula Strength Scapula Manual Muscle Testing Right Elevation (C4) 5 Normal Adduction 5 Normal Depression 5 Normal Left Elevation (C4) 5 Normal Adduction 4- Good- Abduction 5 Normal Depression 5 Normal Shoulder Strength Shoulder Manual Muscle Testing Right Flexion 5 Normal Extension 5 Normal Abduction (C5) 5 Normal Adduction 5 Normal External Rotation 5 Normal Internal Rotation 5 Normal Horizontal Abduction 4 Good Horizontal Adduction 5 Normal Left Flexion 5 Normal Extension 5 Normal Abduction (C5) 5 Normal Adduction 5 Normal External Rotation 4 Good Internal Rotation 5 Normal Horizontal Abduction 4 Good Horizontal Adduction 5 Normal PT-OP-Q Treatments Start: 09/16/18 15:45 Freq: Status: Active Protocol: Document 10/28/18 12:45 EA (Rec: 10/28/18 12:51 EA [id number]) Therapeutic Exercises Sidelying Exercises 1 Sidelying Exercise Name left/Right arm straight thoracic rotation Reps/Minutes x 15 reps x 2 Sitting Exercises 2 Sitting Exercise Name Horiz ADDuction Resistance Lv1 TB Reps/Minutes x 10 reps Comments HEP 1 Sitting Exercise Name Pectoral stretch: hand behind with scapular adduct motion Reps/Minutes x 10 reps x 2 secs hold Comments HEP Manual Therapy Treatment Soft Tissue Mobilization 1 Body Location Both low traps, rhomboids, left SI jnt. Intensity/Depth Moderate Body Position prone with pillow PT-OP-R Modalities Start: 09/16/18 15:45 Freq: Status: Active Protocol: Document 10/28/18 12:45 EA (Rec: 10/28/18 12:51 EA [id number]) Electric Stimulation Electric Stimulation Interferential Current (IFC) Body Location left low traps paralumbars Duration (Minutes) 15 Patient Position Sidelying Combined With Heat/Cold Hot Pack Comments SL PT-OP-T Assessment and Plan Start: 09/16/18 15:45 Freq: Status: Active Protocol: Document 10/28/18 12:45 EA (Rec: 10/28/18 12:51 ROBBIE [id number]) Physical Therapy Assessment Assessment Summary Assessment Noted trigger points at both rhomboids today. Patient tolerated treatment with mild discomfort during manual therapy. Physical Therapy Plan Next Visit Focus/Plan Next Note Type Treatment Note
--- NOTE | 2018-11-01 14:41 | PT.OTN ---
Current Diagnoses Dorsalgia, unspecified (11/01/18) Physical Therapy Treatment Note PT-OP-A Visit Information Start: 09/16/18 15:45 Freq: Status: Active Protocol: Document 11/01/18 12:47 EA (Rec: 11/01/18 12:52 EA [id number]) Out-Patient Physical Therapy Visit Information Visit Information Visit Type Treatment Note Visit Start Time 12:15 Visit Stop Time 13:00 Total Visit Minutes 45 Visit Number 9 Number of CLAIMS ADJUDICATOR Visits 1 PT-OP-B Current Condition Start: 09/16/18 15:45 Freq: Status: Active Protocol: Document 09/16/18 17:12 EA (Rec: 09/27/18 17:35 EA [id number]) Current Condition History of Current Condition Onset Date ~ 8 years ago Current Complaints Left mid back and R SI joint localized pain History of Current Condition Present c/o low back and mid back pain started gradually over 8 years with no back injuries or significant surgeries. 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 Low back MRI was performed 3 years ago however patient unable to recall results. On 07/11/18 patient underwent tripple CABG and was cleared to cardio rehab 07/18/18 and still currently ongoing with 36 weeks cardio rehab program. Prior Treatments and Tests CABG x 3 (07/11/18) Ongoing cardiac rehab Future Testing and Treatments Planned Ongoing cardiac rehab program Treatment Goals Patient/Caregiver Goals Pt wants to get rid of the upper back pain and improve posture Prior Functional Status Baseline Function- ADL's Independent Baseline Function- Mobility Independent Baseline Function- Gait Indep Baseline Function- Work/School Retired Current Functional Impairments (Reported) Functional Limitations- ADL's Indep with min difficulty to light lifting due to increased in mid back pain and CABG pre -cautions Functional Limitations- Mobility/Gait Indep with pre-cautions to mod /high intensity due to post CABG Functional Limitations- Work/School Retired PT-OP-C Subjective Start: 09/16/18 15:45 Freq: Status: Active Protocol: Document 11/01/18 12:47 EA (Rec: 11/01/18 12:52 EA [id number]) OP-PT Subjective Patient Comments Patient Comments Pt reports left upper back is much better; states right upper back is quite sore today after working for 3 hours in the [employer]. Patient Reported Progress Improving PT-OP-G Mobility & Gait Start: 09/16/18 15:45 Freq: Status: Active Protocol: Document 09/16/18 17:18 EA (Rec: 09/28/18 07:28 EA [id number]) OP Mobility Evaluation Functional Movements Lifting and Carrying 7 lbs lifting pre-cautions OP Gait Assessment Gait Gait Assistance Required: Independent Able to Maintain Weight Bearing Status Yes During Gait Assistive Devices Assistive Device None Gait Deviations General Gait Pattern Antalgic Comments Gait Comments Mild right LE antalgic PT-OP-J Posture/Palpation/Skin Start: 09/16/18 15:45 Freq: Status: Active Protocol: Document 09/16/18 17:18 EA (Rec: 09/28/18 07:28 EA [id number]) Posture Evaluation Position Standing Evaluation View post/lat/ Head/C-Spine Posture Forward Head L-Spine Posture Decreased Lordosis Shoulder Posture (L) Rounded (R) Rounded Scapula Posture (L) Protracted (R) Protracted Pelvis Posture Posterior Tilted Palpation Assessment Location One Palpation Location Left medial scapular border, upper parathoracis, R paralumbars,SIJ Palpation Findings Tenderness PT-OP-K Range of Motion Start: 09/16/18 15:45 Freq: Status: Active Protocol: Document 09/16/18 17:18 EA (Rec: 09/28/18 07:28 EA [id number]) Lumbar Spine Range of Motion Lumbar Spine Active Percentage Testing Position Standing Flexion 40 Extension 15 Rotation Left 40 Rotation Right 40 Lateral Flexion Left 22 Lateral Flexion Right 22 ROM Limitations Soft Tissue Tightness Pain Shoulder Goniometric Range of Motion Shoulder Measured in Degrees Active Shoulder ROM WFL Yes Hip Goniometric Range of Motion Hip Measured in Degrees Left Active Hip ROM WFL Yes Right Active Hip ROM WFL Yes PT-OP-L Special Tests Start: 09/16/18 15:45 Freq: Status: Active Protocol: Document 09/16/18 17:12 EA (Rec: 09/27/18 17:35 EA [id number]) Special Tests Cervical Spine Special Tests Foraminal Compression Test Results negative Lumbar Spine Special Tests Other- 1 Test Results Gaenlen's Test: Positive right Straight Leg Raise Test Results negative Stork Test Test Results negative Slump Test Results negative Other Special Tests Special Tests Trigger Points: positive to medial scapular borders. PT-OP-M Strength Start: 09/16/18 15:45 Freq: Status: Active Protocol: Document 09/16/18 17:12 EA (Rec: 09/27/18 17:35 EA [id number]) Trunk Strength Trunk Manual Muscle Testing Testing Position sup/SL Flexion 5 Normal Extension 5 Normal Rotation Left 4+ Good+ Rotation Right 4+ Good+ Lateral Flexion Left 4+ Good+ Lateral Flexion Right 4+ Good+ Scapula Strength Scapula Manual Muscle Testing Right Elevation (C4) 5 Normal Adduction 5 Normal Depression 5 Normal Left Elevation (C4) 5 Normal Adduction 4- Good- Abduction 5 Normal Depression 5 Normal Shoulder Strength Shoulder Manual Muscle Testing Right Flexion 5 Normal Extension 5 Normal Abduction (C5) 5 Normal Adduction 5 Normal External Rotation 5 Normal Internal Rotation 5 Normal Horizontal Abduction 4 Good Horizontal Adduction 5 Normal Left Flexion 5 Normal Extension 5 Normal Abduction (C5) 5 Normal Adduction 5 Normal External Rotation 4 Good Internal Rotation 5 Normal Horizontal Abduction 4 Good Horizontal Adduction 5 Normal PT-OP-Q Treatments Start: 09/16/18 15:45 Freq: Status: Active Protocol: Document 11/01/18 12:47 EA (Rec: 11/01/18 12:52 EA [id number]) Cardio Equipment Upper Body Ergometer (UBE) Duration (Minutes) 5 Seat Position 11 Height 5 Therapeutic Exercises Sidelying Exercises 1 Sidelying Exercise Name left/Right arm straight thoracic rotation Reps/Minutes x 15 reps x 2 Sitting Exercises 2 Sitting Exercise Name Horiz ADDuction Resistance Lv1 TB Reps/Minutes x 10 reps 1 Sitting Exercise Name Pectoral stretch: hand behind with scapular adduc motion Reps/Minutes x 10 reps x 2 secs hold Standing Exercises 1 Standing Exercise Name Shoulder extebsion Resistance Lv 1 Reps/Minutes x 12 reps x 2 Manual Therapy Treatment Soft Tissue Mobilization 1 Body Location Both low traps, rhomboids, left SI jnt. Intensity/Depth Moderate Body Position prone with pillow PT-OP-R Modalities Start: 09/16/18 15:45 Freq: Status: Active Protocol: Document 11/01/18 12:47 EA (Rec: 11/01/18 12:52 EA [id number]) Electric Stimulation Electric Stimulation Interferential Current (IFC) Body Location left low trapsm, right rhomboids Duration (Minutes) 15 Patient Position Sidelying Combined With Heat/Cold Hot Pack Comments SL PT-OP-T Assessment and Plan Start: 09/16/18 15:45 Freq: Status: Active Protocol: Document 11/01/18 12:47 EA (Rec: 11/01/18 12:52 EA [id number]) Physical Therapy Assessment Assessment Summary Assessment Improved shoulder and scap mobility during therex with no discomfort noted during exercises. Patient cont. to progress. Physical Therapy Plan Next Visit Focus/Plan Next Note Type Progress Note
--- NOTE | 2018-11-04 16:50 | PT.OTN ---
Current Diagnoses Dorsalgia, unspecified (11/04/18) Physical Therapy Treatment Note PT-OP-A Visit Information Start: 09/16/18 15:45 Freq: Status: Active Protocol: Document 11/04/18 12:57 EA (Rec: 11/04/18 13:02 EA [id number]) Out-Patient Physical Therapy Visit Information Visit Information Visit Type Treatment Note Visit Start Time 12:15 Visit Stop Time 13:00 Total Visit Minutes 40 Visit Number 10 Number of SIDE SEAM ENVELOPE MACHINE OPERATOR Visits 1 PT-OP-B Current Condition Start: 09/16/18 15:45 Freq: Status: Active Protocol: Document 09/16/18 17:12 EA (Rec: 09/27/18 17:35 EA [id number]) Current Condition History of Current Condition Onset Date ~ 8 years ago Current Complaints Left mid back and R SI joint localized pain History of Current Condition Present c/o low back and mid back pain started gradually over 8 years with no back injuries or significant surgeries. 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 Low back MRI was performed 3 years ago however patient unable to recall results. On 07/11/18 patient underwent tripple CABG and was cleared to cardio rehab 07/18/18 and still currently ongoing with 36 weeks cardio rehab program. Prior Treatments and Tests CABG x 3 (07/11/18) Ongoing cardiac rehab Future Testing and Treatments Planned Ongoing cardiac rehab program Treatment Goals Patient/Caregiver Goals Pt wants to get rid of the upper back pain and improve posture Prior Functional Status Baseline Function- ADL's Independent Baseline Function- Mobility Independent Baseline Function- Gait Indep Baseline Function- Work/School Retired Current Functional Impairments (Reported) Functional Limitations- ADL's Indep with min difficulty to light lifting due to increased in mid back pain and CABG pre -cautions Functional Limitations- Mobility/Gait Indep with pre-cautions to mod /high intensity due to post CABG Functional Limitations- Work/School Retired PT-OP-C Subjective Start: 09/16/18 15:45 Freq: Status: Active Protocol: Document 11/04/18 12:57 EA (Rec: 11/04/18 13:02 EA [id number]) OP-PT Subjective Patient Comments Patient Comments Pt reports upper and mid back is much feeling better; states low back is quite stiff in the morning. Patient Reported Progress Improving PT-OP-G Mobility & Gait Start: 09/16/18 15:45 Freq: Status: Active Protocol: Document 09/16/18 17:18 EA (Rec: 09/28/18 07:28 EA [id number]) OP Mobility Evaluation Functional Movements Lifting and Carrying 7 lbs lifting pre-cautions OP Gait Assessment Gait Gait Assistance Required: Independent Able to Maintain Weight Bearing Status Yes During Gait Assistive Devices Assistive Device None Gait Deviations General Gait Pattern Antalgic Comments Gait Comments Mild right LE antalgic PT-OP-J Posture/Palpation/Skin Start: 09/16/18 15:45 Freq: Status: Active Protocol: Document 09/16/18 17:18 EA (Rec: 09/28/18 07:28 EA [id number]) Posture Evaluation Position Standing Evaluation View post/lat/ Head/C-Spine Posture Forward Head L-Spine Posture Decreased Lordosis Shoulder Posture (L) Rounded (R) Rounded Scapula Posture (L) Protracted (R) Protracted Pelvis Posture Posterior Tilted Palpation Assessment Location One Palpation Location Left medial scapular border, upper parathoracis, R paralumbars,SIJ Palpation Findings Tenderness PT-OP-K Range of Motion Start: 09/16/18 15:45 Freq: Status: Active Protocol: Document 09/16/18 17:18 EA (Rec: 09/28/18 07:28 EA [id number]) Lumbar Spine Range of Motion Lumbar Spine Active Percentage Testing Position Standing Flexion 40 Extension 15 Rotation Left 40 Rotation Right 40 Lateral Flexion Left 22 Lateral Flexion Right 22 ROM Limitations Soft Tissue Tightness Pain Shoulder Goniometric Range of Motion Shoulder Measured in Degrees Active Shoulder ROM WFL Yes Hip Goniometric Range of Motion Hip Measured in Degrees Left Active Hip ROM WFL Yes Right Active Hip ROM WFL Yes PT-OP-L Special Tests Start: 09/16/18 15:45 Freq: Status: Active Protocol: Document 09/16/18 17:12 EA (Rec: 09/27/18 17:35 EA [id number]) Special Tests Cervical Spine Special Tests Foraminal Compression Test Results negative Lumbar Spine Special Tests Other- 1 Test Results Gaenlen's Test: Positive right Straight Leg Raise Test Results negative Stork Test Test Results negative Slump Test Results negative Other Special Tests Special Tests Trigger Points: positive to medial scapular borders. PT-OP-M Strength Start: 09/16/18 15:45 Freq: Status: Active Protocol: Document 09/16/18 17:12 EA (Rec: 09/27/18 17:35 EA [id number]) Trunk Strength Trunk Manual Muscle Testing Testing Position sup/SL Flexion 5 Normal Extension 5 Normal Rotation Left 4+ Good+ Rotation Right 4+ Good+ Lateral Flexion Left 4+ Good+ Lateral Flexion Right 4+ Good+ Scapula Strength Scapula Manual Muscle Testing Right Elevation (C4) 5 Normal Adduction 5 Normal Depression 5 Normal Left Elevation (C4) 5 Normal Adduction 4- Good- Abduction 5 Normal Depression 5 Normal Shoulder Strength Shoulder Manual Muscle Testing Right Flexion 5 Normal Extension 5 Normal Abduction (C5) 5 Normal Adduction 5 Normal External Rotation 5 Normal Internal Rotation 5 Normal Horizontal Abduction 4 Good Horizontal Adduction 5 Normal Left Flexion 5 Normal Extension 5 Normal Abduction (C5) 5 Normal Adduction 5 Normal External Rotation 4 Good Internal Rotation 5 Normal Horizontal Abduction 4 Good Horizontal Adduction 5 Normal PT-OP-Q Treatments Start: 09/16/18 15:45 Freq: Status: Active Protocol: Document 11/04/18 12:57 EA (Rec: 11/04/18 13:02 EA [id number]) Therapeutic Exercises Supine Exercises 3 Supine Exercise Name lower trunk rotation Reps/Minutes x 10 reps x 2 sets 2 Supine Exercise Name bridge with pelvic rotatiob Reps/Minutes x 10 reps x 2 sets 1 Supine Exercise Name pelvic bridge Reps/Minutes x 10 repsx2 Standing Exercises 1 Standing Exercise Name Shoulder extension Resistance Lv 1 Reps/Minutes x 12 reps x 2 Wall/posture stretch Reps/Minutes 20-30 seconds x 3 Comments HEP Manual Therapy Treatment Soft Tissue Mobilization 1 Body Location Paralumbars, QL Mobilization Type Myofascial Release Rolling Strumming Sustained Pressure Trigger Point Release Intensity/Depth Moderate Body Position Sitting Comments leaning towards the table PT-OP-R Modalities Start: 09/16/18 15:45 Freq: Status: Active Protocol: Document 11/04/18 12:57 EA (Rec: 11/04/18 13:02 EA [id number]) Electric Stimulation Electric Stimulation Interferential Current (IFC) Body Location Paralumbars Duration (Minutes) 15 Patient Position Sidelying Combined With Heat/Cold Hot Pack Comments leaning to the table on sitting posture PT-OP-T Assessment and Plan Start: 09/16/18 15:45 Freq: Status: Active Protocol: Document 11/04/18 12:57 EA (Rec: 11/04/18 13:02 EA [id number]) Physical Therapy Assessment Assessment Summary Assessment Improved mobility lumbar area after manual PT with decreased symptoms. Patient cont. to progress with current plan. Physical Therapy Plan Next Visit Focus/Plan Next Note Type Treatment Note
--- NOTE | 2018-11-10 15:12 | PT.OTN ---
Current Diagnoses Dorsalgia, unspecified (11/10/18) Physical Therapy Treatment Note PT-OP-A Visit Information Start: 09/16/18 15:45 Freq: Status: Active Protocol: Document 11/10/18 12:12 EA (Rec: 11/10/18 12:49 EA [id number]) Out-Patient Physical Therapy Visit Information Visit Information Visit Type Treatment Note Visit Start Time 12:15 Visit Stop Time 13:00 Total Visit Minutes 45 Visit Number 10 Number of RELAY MECHANIC Visits 1 PT-OP-B Current Condition Start: 09/16/18 15:45 Freq: Status: Active Protocol: Document 09/16/18 17:12 EA (Rec: 09/27/18 17:35 EA [id number]) Current Condition History of Current Condition Onset Date ~ 8 years ago Current Complaints Left mid back and R SI joint localized pain History of Current Condition Present c/o low back and mid back pain started gradually over 8 years with no back injuries or significant surgeries. 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 Low back MRI was performed 3 years ago however patient unable to recall results. On 07/11/18 patient underwent tripple CABG and was cleared to cardio rehab 07/18/18 and still currently ongoing with 36 weeks cardio rehab program. Prior Treatments and Tests CABG x 3 (07/11/18) Ongoing cardiac rehab Future Testing and Treatments Planned Ongoing cardiac rehab program Treatment Goals Patient/Caregiver Goals Pt wants to get rid of the upper back pain and improve posture Prior Functional Status Baseline Function- ADL's Independent Baseline Function- Mobility Independent Baseline Function- Gait Indep Baseline Function- Work/School Retired Current Functional Impairments (Reported) Functional Limitations- ADL's Indep with min difficulty to light lifting due to increased in mid back pain and CABG pre -cautions Functional Limitations- Mobility/Gait Indep with pre-cautions to mod /high intensity due to post CABG Functional Limitations- Work/School Retired PT-OP-C Subjective Start: 09/16/18 15:45 Freq: Status: Active Protocol: Document 11/10/18 12:12 EA (Rec: 11/10/18 12:49 EA [id number]) OP-PT Subjective Patient Comments Patient Comments Pt reports able to wake up this morning with no low back stiffness; states discomfort and pain to low back is currently at very less; states 1/10 PS. PT-OP-G Mobility & Gait Start: 09/16/18 15:45 Freq: Status: Active Protocol: Document 09/16/18 17:18 EA (Rec: 09/28/18 07:28 EA [id number]) OP Mobility Evaluation Functional Movements Lifting and Carrying 7 lbs lifting pre-cautions OP Gait Assessment Gait Gait Assistance Required: Independent Able to Maintain Weight Bearing Status Yes During Gait Assistive Devices Assistive Device None Gait Deviations General Gait Pattern Antalgic Comments Gait Comments Mild right LE antalgic PT-OP-J Posture/Palpation/Skin Start: 09/16/18 15:45 Freq: Status: Active Protocol: Document 09/16/18 17:18 EA (Rec: 09/28/18 07:28 EA [id number]) Posture Evaluation Position Standing Evaluation View post/lat/ Head/C-Spine Posture Forward Head L-Spine Posture Decreased Lordosis Shoulder Posture (L) Rounded (R) Rounded Scapula Posture (L) Protracted (R) Protracted Pelvis Posture Posterior Tilted Palpation Assessment Location One Palpation Location Left medial scapular border, upper parathoracis, R paralumbars,SIJ Palpation Findings Tenderness PT-OP-K Range of Motion Start: 09/16/18 15:45 Freq: Status: Active Protocol: Document 09/16/18 17:18 EA (Rec: 09/28/18 07:28 EA [id number]) Lumbar Spine Range of Motion Lumbar Spine Active Percentage Testing Position Standing Flexion 40 Extension 15 Rotation Left 40 Rotation Right 40 Lateral Flexion Left 22 Lateral Flexion Right 22 ROM Limitations Soft Tissue Tightness Pain Shoulder Goniometric Range of Motion Shoulder Measured in Degrees Active Shoulder ROM WFL Yes Hip Goniometric Range of Motion Hip Measured in Degrees Left Active Hip ROM WFL Yes Right Active Hip ROM WFL Yes PT-OP-L Special Tests Start: 09/16/18 15:45 Freq: Status: Active Protocol: Document 09/16/18 17:12 EA (Rec: 09/27/18 17:35 EA [id number]) Special Tests Cervical Spine Special Tests Foraminal Compression Test Results negative Lumbar Spine Special Tests Other- 1 Test Results Gaenlen's Test: Positive right Straight Leg Raise Test Results negative Stork Test Test Results negative Slump Test Results negative Other Special Tests Special Tests Trigger Points: positive to medial scapular borders. PT-OP-M Strength Start: 09/16/18 15:45 Freq: Status: Active Protocol: Document 09/16/18 17:12 EA (Rec: 09/27/18 17:35 EA [id number]) Trunk Strength Trunk Manual Muscle Testing Testing Position sup/SL Flexion 5 Normal Extension 5 Normal Rotation Left 4+ Good+ Rotation Right 4+ Good+ Lateral Flexion Left 4+ Good+ Lateral Flexion Right 4+ Good+ Scapula Strength Scapula Manual Muscle Testing Right Elevation (C4) 5 Normal Adduction 5 Normal Depression 5 Normal Left Elevation (C4) 5 Normal Adduction 4- Good- Abduction 5 Normal Depression 5 Normal Shoulder Strength Shoulder Manual Muscle Testing Right Flexion 5 Normal Extension 5 Normal Abduction (C5) 5 Normal Adduction 5 Normal External Rotation 5 Normal Internal Rotation 5 Normal Horizontal Abduction 4 Good Horizontal Adduction 5 Normal Left Flexion 5 Normal Extension 5 Normal Abduction (C5) 5 Normal Adduction 5 Normal External Rotation 4 Good Internal Rotation 5 Normal Horizontal Abduction 4 Good Horizontal Adduction 5 Normal PT-OP-Q Treatments Start: 09/16/18 15:45 Freq: Status: Active Protocol: Document 11/10/18 12:12 EA (Rec: 11/10/18 12:49 EA [id number]) Cardio Equipment Recumbent Bicycle Duration (Minutes) 5 Resistance 4 Therapeutic Exercises Supine Exercises 5 Supine Exercise Name PPT-BLE marching Side bilateral Reps/Minutes x 5 reps x 5 sets 4 Supine Exercise Name PPT Side bilateral Reps/Minutes x 5SH x 5 reps 3 Supine Exercise Name lower trunk rotation Reps/Minutes x 10 reps x 2 sets 2 Supine Exercise Name bridge with pelvic rotatiob Reps/Minutes x 10 reps x 2 sets 1 Supine Exercise Name pelvic bridge Reps/Minutes x 10 repsx2 Manual Therapy Treatment Soft Tissue Mobilization 1 Body Location Paralumbars, QL Mobilization Type Myofascial Release Rolling Strumming Sustained Pressure Trigger Point Release Intensity/Depth Moderate Body Position Sitting Comments leaning towards the table PT-OP-R Modalities Start: 09/16/18 15:45 Freq: Status: Active Protocol: Document 11/10/18 12:12 EA (Rec: 11/10/18 12:49 EA [id number]) Electric Stimulation Electric Stimulation Interferential Current (IFC) Body Location Paralumbars Duration (Minutes) 15 Patient Position Sidelying Combined With Heat/Cold Hot Pack Comments leaning to the table on sitting posture PT-OP-T Assessment and Plan Start: 09/16/18 15:45 Freq: Status: Active Protocol: Document 11/10/18 12:12 EA (Rec: 11/10/18 12:49 EA [id number]) Physical Therapy Assessment Assessment Summary Assessment Patient exhibits improved lumbar motion in supine with no discomfort noted; patient also has very less tenderness to low back and mid back region. Overall patient is progressed. Patient to see after week and discharge as necessary. Physical Therapy Plan Next Visit Focus/Plan Next Note Type Treatment Note Next Visit Plan Discharge as necessary after a week. 1038
--- NOTE | 2018-12-21 08:42 | PT.OPDS ---
Current Diagnoses Dorsalgia, unspecified (11/10/18) Provider Visit Care Team Role Provider Type Andre Escamilla MD Attending Provider Physician Family Provider Primary Care Provider Specialty: Internal Medicine Address: [address] [place] [address], [id number] Email: Visit Number Visit Number 10 Discharge Summary PT-OP-B Current Condition Start: 09/16/18 15:45 Freq: Status: Active Protocol: Document 09/16/18 17:12 EA (Rec: 09/27/18 17:35 EA [id number]) Current Condition History of Current Condition Onset Date ~ 8 years ago Current Complaints Left mid back and R SI joint localized pain History of Current Condition Present c/o low back and mid back pain started gradually over 8 years with no back injuries or significant surgeries. 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 Low back MRI was performed 3 years ago however patient unable to recall results. On 07/11/18 patient underwent tripple CABG and was cleared to cardio rehab 07/18/18 and still currently ongoing with 36 weeks cardio rehab program. Prior Treatments and Tests CABG x 3 (07/11/18) Ongoing cardiac rehab Future Testing and Treatments Planned Ongoing cardiac rehab program Treatment Goals Patient/Caregiver Goals Pt wants to get rid of the upper back pain and improve posture Prior Functional Status Baseline Function- ADL's Independent Baseline Function- Mobility Independent Baseline Function- Gait Indep Baseline Function- Work/School Retired Current Functional Impairments (Reported) Functional Limitations- ADL's Indep with min difficulty to light lifting due to increased in mid back pain and CABG pre -cautions Functional Limitations- Mobility/Gait Indep with pre-cautions to mod /high intensity due to post CABG Functional Limitations- Work/School Retired PT-OP-C Subjective Start: 09/16/18 15:45 Freq: Status: Active Protocol: Document 12/21/18 08:40 EA (Rec: 12/21/18 08:42 EA [id number]) OP-PT Subjective Patient Comments Patient Comments As per phone conversation toady, patient reports she has been doing very well and upper mid-back pain is very rare to happen; states she is now okay to discharge. Patient Reported Progress Improving PT-OP-G Mobility & Gait Start: 09/16/18 15:45 Freq: Status: Active Protocol: Document 09/16/18 17:18 EA (Rec: 09/28/18 07:28 EA [id number]) OP Mobility Evaluation Functional Movements Lifting and Carrying 7 lbs lifting pre-cautions OP Gait Assessment Gait Gait Assistance Required: Independent Able to Maintain Weight Bearing Status Yes During Gait Assistive Devices Assistive Device None Gait Deviations General Gait Pattern Antalgic Comments Gait Comments Mild right LE antalgic PT-OP-J Posture/Palpation/Skin Start: 09/16/18 15:45 Freq: Status: Active Protocol: Document 09/16/18 17:18 EA (Rec: 09/28/18 07:28 EA [id number]) Posture Evaluation Position Standing Evaluation View post/lat/ Head/C-Spine Posture Forward Head L-Spine Posture Decreased Lordosis Shoulder Posture (L) Rounded (R) Rounded Scapula Posture (L) Protracted (R) Protracted Pelvis Posture Posterior Tilted Palpation Assessment Location One Palpation Location Left medial scapular border, upper parathoracis, R paralumbars,SIJ Palpation Findings Tenderness PT-OP-K Range of Motion Start: 09/16/18 15:45 Freq: Status: Active Protocol: Document 09/16/18 17:18 EA (Rec: 09/28/18 07:28 EA [id number]) Lumbar Spine Range of Motion Lumbar Spine Active Percentage Testing Position Standing Flexion 40 Extension 15 Rotation Left 40 Rotation Right 40 Lateral Flexion Left 22 Lateral Flexion Right 22 ROM Limitations Soft Tissue Tightness Pain Shoulder Goniometric Range of Motion Shoulder Measured in Degrees Active Shoulder ROM WFL Yes Hip Goniometric Range of Motion Hip Measured in Degrees Left Active Hip ROM WFL Yes Right Active Hip ROM WFL Yes PT-OP-L Special Tests Start: 09/16/18 15:45 Freq: Status: Active Protocol: Document 09/16/18 17:12 EA (Rec: 09/27/18 17:35 EA [id number]) Special Tests Cervical Spine Special Tests Foraminal Compression Test Results negative Lumbar Spine Special Tests Other- 1 Test Results Gaenlen's Test: Positive right Straight Leg Raise Test Results negative Stork Test Test Results negative Slump Test Results negative Other Special Tests Special Tests Trigger Points: positive to medial scapular borders. PT-OP-M Strength Start: 09/16/18 15:45 Freq: Status: Active Protocol: Document 09/16/18 17:12 EA (Rec: 09/27/18 17:35 EA [id number]) Trunk Strength Trunk Manual Muscle Testing Testing Position sup/SL Flexion 5 Normal Extension 5 Normal Rotation Left 4+ Good+ Rotation Right 4+ Good+ Lateral Flexion Left 4+ Good+ Lateral Flexion Right 4+ Good+ Scapula Strength Scapula Manual Muscle Testing Right Elevation (C4) 5 Normal Adduction 5 Normal Depression 5 Normal Left Elevation (C4) 5 Normal Adduction 4- Good- Abduction 5 Normal Depression 5 Normal Shoulder Strength Shoulder Manual Muscle Testing Right Flexion 5 Normal Extension 5 Normal Abduction (C5) 5 Normal Adduction 5 Normal External Rotation 5 Normal Internal Rotation 5 Normal Horizontal Abduction 4 Good Horizontal Adduction 5 Normal Left Flexion 5 Normal Extension 5 Normal Abduction (C5) 5 Normal Adduction 5 Normal External Rotation 4 Good Internal Rotation 5 Normal Horizontal Abduction 4 Good Horizontal Adduction 5 Normal PT-OP-T Assessment and Plan Start: 09/16/18 15:45 Freq: Status: Active Protocol: Document 12/21/18 08:40 EA (Rec: 12/21/18 08:42 EA [id number]) Physical Therapy Assessment Assessment Summary Assessment Patient is discharge today. Patient has improve at the the time of discharge. Physical Therapy Plan Discharge Physical Therapy Discharge Reasons Patient Request Discharge Comments Goals met
== END 2018-12-21 16:19 ==
LOC: PHYS 12:15
PROVIDERS: Family Provider Student in an Organized Health Care Education/Training Program; PCP Student in an Organized Health Care Education/Training Program; Visit Provider Student in an Organized Health Care Education/Training Program
DX: M54.9 Dorsalgia, unspecified (principal)
CPT/HCPCS: 97014; 97110; 97140; 97162; 97535; G0283

== ENCOUNTER 2018-12-08 08:30 | Outpatient (RCR) | payer MEDICARE, OTHER, SELFPAY ==
[2018-07-16 13:33] VITALS: BMI 31.8
== END 2018-12-09 08:22 ==
LOC: CAR 08:30
PROVIDERS: Family Provider Student in an Organized Health Care Education/Training Program; PCP Student in an Organized Health Care Education/Training Program
DX: Z95.1 Presence of aortocoronary bypass graft (principal); I25.10 Atherosclerotic heart disease of native coronary artery without angina pectoris
CPT/HCPCS: 93798

== ENCOUNTER → 2019-05-04 08:55 | Outpatient (CLI) | payer MEDICARE, OTHER, SELFPAY ==
[2018-07-16 13:33] VITALS: BMI 31.8
--- NOTE | 2019-05-04 08:58 | DI.MG.S_ITS ---
BILATERAL DIGITAL SCREENING MAMMOGRAM 3D/2D WITH CAD: 05/04/2019 CLINICAL: Routine screening. Baseline by default. Family history of breast cancer. No prior exams were available for comparison. The tissue of both breasts is heterogeneously dense. This may lower the sensitivity of mammography. Current study was also evaluated with a Computer Aided Detection (CAD) system. There is an oval equal density focal asymmetry with an obscured and circumscribed margin in the right breast at 12 o'clock posterior depth. No other significant masses, calcifications, or other findings are seen in either breast. IMPRESSION: INCOMPLETE: NEEDS ADDITIONAL IMAGING EVALUATION The oval equal density focal asymmetry in the right breast is indeterminate. Mediolateral and spot compression views as well as additional views with possible ultrasound are recommended. This exam was interpreted at Station ID: [id number]. NOTE: For mammograms, a report in lay terms will be sent to the patient. Approximately 15% of breast malignancies will not be visualized mammographically. In the management of a palpable breast mass, a negative mammogram must not discourage biopsy of a clinically suspicious lesion. Electronically Signed By: Jose brown/ben:05/04/2019 12:06:36 letter sent: Additional Imaging Needed ACR BI-RADS Category 0: Incomplete 3340F
== END ==
PROVIDERS: PCP Student in an Organized Health Care Education/Training Program; Visit Provider Student in an Organized Health Care Education/Training Program
DX: Z12.31 Encounter for screening mammogram for malignant neoplasm of breast (principal); Z80.3 Family history of malignant neoplasm of breast
CPT/HCPCS: 77063; 77067

== ENCOUNTER → 2019-05-24 13:44 | Outpatient (CLI) | payer MEDICARE, OTHER, SELFPAY ==
[2018-07-16 13:33] VITALS: BMI 31.8
--- NOTE | 2019-05-24 13:45 | DI.US.S_ITS ---
LIMITED ULTRASOUND OF RIGHT BREAST: 05/24/2019 CLINICAL: Patient returns today to evaluate a density in the right breast. Comparison is made to exams dated: 05/24/2019 mammogram and 05/04/2019 mammogram - [facility]. Color flow and real-time ultrasound of the right breast 11-1 o'clock region were performed. Burks scale images of the real-time examination were reviewed. No abnormalities were seen sonographically in the right breast. IMPRESSION: PROBABLY BENIGN Resolution of screening mammography abnormality with additional views. Ultrasound of this area revealed no abnormalities. A follow-up right mammogram in 6 months is recommended to demonstrate stability. Findings and recommendations were conveyed to the patient at time of exam. This exam was interpreted at Station ID: [id number]. Electronically Signed By: Cara griffith/:05/24/2019 15:08:32 letter sent: Followup Recommended Ultrasound BI-RADS: 3 Probably benign
--- NOTE | 2019-05-24 13:45 | DI.MG.S_ITS ---
UNILATERAL RIGHT DIGITAL DIAGNOSTIC MAMMOGRAM 3D/2D WITH ADDITIONAL VIEWS: 05/24/2019 CLINICAL: Additional evaluation requested from prior study. Comparison is made to exam dated: 05/04/2019 [facility]. The tissue of right breast is heterogeneously dense. This may lower the sensitivity of mammography. The oval equal density focal asymmetry with an obscured and circumscribed margin in the right breast at 12 o'clock posterior depth is no longer seen. It is not seen in additional views. No other significant masses or calcifications are seen in the breast. IMPRESSION: INCOMPLETE: NEEDS ADDITIONAL IMAGING EVALUATION An ultrasound is recommended to confirm resolution of the oval equal density focal asymmetry in the right breast posterior depth. This was performed immediately following this exam. This exam was interpreted at Station ID: [id number]. NOTE: For mammograms, a report in lay terms will be sent to the patient. Approximately 15% of breast malignancies will not be visualized mammographically. In the management of a palpable breast mass, a negative mammogram must not discourage biopsy of a clinically suspicious lesion. Electronically Signed By: Cara griffith/:05/24/2019 15:04:03 ACR BI-RADS Category 0: Incomplete [id number]
== END ==
PROVIDERS: PCP Student in an Organized Health Care Education/Training Program; Visit Provider Student in an Organized Health Care Education/Training Program
DX: R92.8 Other abnormal and inconclusive findings on diagnostic imaging of breast (principal); N64.89 Other specified disorders of breast
CPT/HCPCS: 76642; 77065; G0279

== ENCOUNTER → 2019-08-18 12:30 | Outpatient (CLI) | payer MEDICARE, OTHER, SELFPAY ==
[2018-07-16 13:33] VITALS: BMI 31.8
--- NOTE | 2019-08-18 | DI.RAD.S_ITS ---
PROCEDURE: XR CHEST 2V INDICATIONS: has pain in sternal post CABG incision area TECHNIQUE: 2 views of the chest were acquired. COMPARISON: [facility], CR, XR CHEST 2 VIEWS, 07/11/2018, 20:00. [facility], CR, XR CHEST 1V, 07/11/2018, 4:25. FINDINGS: Surgical changes and devices: Sternotomy and CABG. Lungs and pleura: Lungs are clear. No pleural effusions or pneumothorax. Mediastinum: Mediastinal contours are normal. Heart size is normal. Bones and chest wall: No suspicious bony abnormalities. Soft tissues appear unremarkable. IMPRESSION: No acute cardiopulmonary disease. Dictated by: Janel Avendano M.D. on 08/18/2019 at 17:35 Approved by: Janel Avendano M.D. on 08/18/2019 at 17:36
== END ==
PROVIDERS: PCP Student in an Organized Health Care Education/Training Program; Visit Provider Hospitalist
DX: R07.89 Other chest pain (principal); Z95.1 Presence of aortocoronary bypass graft
CPT/HCPCS: 71046

== ENCOUNTER → 2020-01-16 08:12 | Outpatient (CLI) | payer MEDICARE, OTHER, SELFPAY ==
[2018-07-16 13:33] VITALS: BMI 31.8
--- NOTE | 2020-01-16 08:14 | DI.MG.S_ITS ---
UNILATERAL RIGHT DIGITAL DIAGNOSTIC MAMMOGRAM 3D/2D: 01/16/2020 CLINICAL: Patient returns for a 6 month follow up of the right breast. Comparison is made to exams dated: 05/24/2019 mammogram and 05/04/2019 mammogram - [facility]. The tissue of right breast is heterogeneously dense. This may lower the sensitivity of mammography. There is an equal density focal asymmetry in the right breast at 12 o'clock posterior depth is not significantly changed. No other significant masses or calcifications are seen in the breast. IMPRESSION: PROBABLY BENIGN The equal density focal asymmetry in the right breast is probably benign. A follow-up mammogram and possible ultrasound in 6 months is recommended to demonstrate continued stability. Exam results were conveyed to the patient by the biomedical engineering technologist. Patient will also be due for left breast screening. This exam was interpreted at Station ID: [id number]. NOTE: For mammograms, a report in lay terms will be sent to the patient. Approximately 15% of breast malignancies will not be visualized mammographically. In the management of a palpable breast mass, a negative mammogram must not discourage biopsy of a clinically suspicious lesion. Electronically Signed By: Heri Verma M.D. [facility] [place]/:01/16/2020 08:40:32 letter sent: Followup Recommended ACR BI-RADS Category 3: Probably benign [id number]
== END ==
PROVIDERS: PCP Student in an Organized Health Care Education/Training Program; Referring Provider Student in an Organized Health Care Education/Training Program; Visit Provider Student in an Organized Health Care Education/Training Program
DX: R92.8 Other abnormal and inconclusive findings on diagnostic imaging of breast (principal); N64.89 Other specified disorders of breast
CPT/HCPCS: 77065; G0279

== ENCOUNTER → 2020-02-09 08:46 | Outpatient (CLI) | payer MEDICARE, OTHER, SELFPAY ==
[2018-07-16 13:33] VITALS: BMI 31.8
[2020-02-09 09:55] LABS: Add Manual Diff / Slide Review NO; Basophils Absolute Auto 100 /uL (0-100); Basophils Percent Auto 0.9 % (0-2); Eosinophils Absolute Auto 200 /uL (0-450); Eosinophils Percent Auto 2.8 % (2-4); Hematocrit 42.6 % (36-46); Hemoglobin 14.9 g/dL (12.0-16.0); Lymphocytes Absolute Auto 1600 /uL (1100-4500); Lymphocytes Percent Auto 20.8 % (25-40); Mean Corpuscular HGB Conc 34.9 % (30-36); Mean Corpuscular Hemoglobin 31.8 PG (26-34); Monocytes Absolute Auto 700 /uL (0-900); Monocytes Percent Auto 9.4 % (3-14); Neutrophils Absolute Auto 4900 /uL (1500-7000); Neutrophils Percent Auto 66.1 % (50-75); Platelet Count 171 X10^3/uL (150-400); Red Blood Cell Count 4.68 X10^6/uL (4.0-5.2); Red Cell Distribution Width 12.1 % (11.6-14.8); White Blood Cell Count 7.4 X10^3/uL (4.5-11.0)
[2020-02-09 10:12] LABS: BUN Creatinine Ratio 23.7 (6-22); Blood Urea Nitrogen 18 mg/dL (7-17); Calcium 10.2 mg/dL (8.4-10.2); Carbon Dioxide 29 mmol/L (22-32); Chloride 103 mmol/L (98-107); Cholesterol 103 mg/dL (140-199); Estimated Glomerular Filt Rate > 60.0 mL/min (>60); Glucose 134 mg/dL (80-110); HDL Cholesterol 28 mg/dL (40-60); HEMOLYSIS < 15 (0-50); LDL Cholesterol Calculated 49 mg/dL (<100); Sodium 139 mmol/L (137-145); Triglycerides 128 mg/dL (35-150)
[2020-02-09 10:13] LABS: Potassium 5.4 mmol/L (3.4-5.1)
== END ==
PROVIDERS: PCP Student in an Organized Health Care Education/Training Program; Referring Provider Hospitalist; Visit Provider Hospitalist
DX: I25.10 Atherosclerotic heart disease of native coronary artery without angina pectoris (principal)
CPT/HCPCS: 36415; 80048; 80061; 85025

== ENCOUNTER → 2020-02-15 16:03 | Outpatient (CLI) | payer MEDICARE, OTHER, SELFPAY ==
[2018-07-16 13:33] VITALS: BMI 31.8
[2020-02-16 07:12] LABS: Fecal Immunochemical Test Negative (Negative)
== END ==
PROVIDERS: PCP Student in an Organized Health Care Education/Training Program; Referring Provider Student in an Organized Health Care Education/Training Program; Visit Provider Student in an Organized Health Care Education/Training Program
DX: Z12.11 Encounter for screening for malignant neoplasm of colon (principal)
CPT/HCPCS: 82274

== ENCOUNTER → 2020-08-10 08:14 | Outpatient (CLI) | payer MEDICARE, OTHER, SELFPAY ==
[2018-07-16 13:33] VITALS: BMI 31.8
[2020-08-10 09:08] LABS: Hemoglobin A1C% w Est Avg Glu 7.3 % (4.0-6.0)
== END ==
PROVIDERS: PCP Student in an Organized Health Care Education/Training Program; Referring Provider Student in an Organized Health Care Education/Training Program; Visit Provider Student in an Organized Health Care Education/Training Program
DX: E66.9 Obesity, unspecified (principal); R63.5 Abnormal weight gain; R73.9 Hyperglycemia, unspecified
CPT/HCPCS: 36415; 83036

== ENCOUNTER → 2020-09-04 13:51 | Outpatient (CLI) | payer MEDICARE, OTHER, SELFPAY ==
[2018-07-16 13:33] VITALS: BMI 31.8
--- NOTE | 2020-09-04 13:53 | DI.MG.S_ITS ---
BILATERAL DIGITAL DIAGNOSTIC MAMMOGRAM 3D/2D: 09/04/2020 CLINICAL: Short term follow up, due bilaterally. Comparison is made to exams dated: 01/16/2020 mammogram, 05/24/2019 mammogram, and 05/04/2019 mammogram - [facility]. The tissue of both breasts is heterogeneously dense. This may lower the sensitivity of mammography. There is an equal density focal asymmetry in the right breast at 12 o'clock posterior depth. This is not significantly changed. No other significant masses, calcifications, or other findings are seen in either breast. IMPRESSION: PROBABLY BENIGN The equal density focal asymmetry in the right breast is probably benign. A follow-up right mammogram in 6 months is recommended to demonstrate stability. This exam was interpreted at Station ID: [id number]. NOTE: For mammograms, a report in lay terms will be sent to the patient. Approximately 15% of breast malignancies will not be visualized mammographically. In the management of a palpable breast mass, a negative mammogram must not discourage biopsy of a clinically suspicious lesion. Electronically Signed By: Domingo obando/ben:09/04/2020 16:00:07 letter sent: Followup Recommended ACR BI-RADS Category 3: Probably benign [id number]
== END ==
PROVIDERS: PCP Student in an Organized Health Care Education/Training Program; Referring Provider Student in an Organized Health Care Education/Training Program; Visit Provider Student in an Organized Health Care Education/Training Program
DX: R92.8 Other abnormal and inconclusive findings on diagnostic imaging of breast (principal); N64.89 Other specified disorders of breast
CPT/HCPCS: 77066; G0279

== ENCOUNTER → 2020-09-21 09:41 | Outpatient (CLI) | payer MEDICARE, OTHER, SELFPAY ==
[2018-07-16 13:33] VITALS: BMI 31.8
== END ==
PROVIDERS: PCP Student in an Organized Health Care Education/Training Program; Referring Provider Student in an Organized Health Care Education/Training Program; Visit Provider Student in an Organized Health Care Education/Training Program
DX: Z13.820 Encounter for screening for osteoporosis (principal); Z78.0 Asymptomatic menopausal state
CPT/HCPCS: 77080

== ENCOUNTER → 2020-11-29 16:12 | Outpatient (CLI) | payer MEDICARE, OTHER, SELFPAY ==
[2018-07-16 13:33] VITALS: BMI 31.8
[2020-11-29 16:34] LABS: Hemoglobin A1C% w Est Avg Glu 7.8 % (4.0-6.0)
[2020-11-29 16:45] LABS: Alanine Aminotransferase 27 IU/L (<35); Albumin 4.1 g/dL (3.5-5.0); Albumin Globulin Ratio 1.4 (1.0-2.8); Alkaline Phosphatase 114 U/L (38-126); Aspartate Aminotransferase 29 IU/L (14-36); BUN Creatinine Ratio 30.7 (6-22); Bilirubin Total 0.4 mg/dL (0.2-1.3); Blood Urea Nitrogen 23 mg/dL (7-17); Calcium 9.2 mg/dL (8.4-10.2); Carbon Dioxide 32 mmol/L (22-32); Chloride 104 mmol/L (98-107); Estimated Glomerular Filt Rate > 60.0 mL/min (>60); Globulin 2.9 g/dL (1.7-4.1); Glucose 185 mg/dL (80-110); HEMOLYSIS < 15 (0-50); Potassium 3.8 mmol/L (3.4-5.1); Sodium 137 mmol/L (137-145)
== END ==
PROVIDERS: PCP Student in an Organized Health Care Education/Training Program; Referring Provider Family Medicine; Visit Provider Family Medicine
DX: E11.9 Type 2 diabetes mellitus without complications (principal); R51.9 Headache, unspecified
CPT/HCPCS: 36415; 80053; 83036

== ENCOUNTER → 2020-12-05 09:22 | Outpatient (CLI) | payer MEDICARE, OTHER, SELFPAY ==
[2018-07-16 13:33] VITALS: BMI 31.8
--- NOTE | 2020-12-05 09:26 | DI.MRI.S_ITS ---
PROCEDURE: MR HEAD/BRAIN WO CON INDICATIONS: New rt occipital headache TECHNIQUE: Non-contrast axial T1 spin echo, axial T2 fast spin echo, sagittal and axial FLAIR, coronal T2 fast spin echo, axial gradient echo, axial diffusion and ADC through the brain. COMPARISON: None. FINDINGS: Image quality: Excellent. CSF spaces: Ventricles appear symmetric in size and shape. Basal cisterns are patent. No extra-axial fluid collections. Brain: No intracranial bleeds or mass effects. There is cerebral volume loss for age. There are periventricular and deep white matter chronic small vessel ischemic changes. Brainstem appears normal. Diffusion-weighted images show no acute ischemic insults. No chronic ischemic insults. Normal intravascular flow voids are present. There is a small old lacunar infarction or dilated perivascular space at the right lentiform nuclei, peripherally. This is deep to the insular cortex. Skull and face: Calvarial bone marrow is normal in signal. Orbits are normal. Sinuses: Sinuses and mastoids are clear. IMPRESSION: [id number] microvascular atherosclerotic change in the deep white matter of each hemisphere. No evidence of recent ischemic injury. There is a prominent perivascular space or old lacunar infarction measuring only 6 mm in diameter on the right at the lateral aspect of the lentiform nuclei, deep to the insular cortex. No follow-up recommended. A definite source of new right occipital headache is not seen. Dictated by: Ayo Shah M.D. on 12/05/2020 at 11:11 Approved by: Ayo Shah M.D. on 12/05/2020 at 11:13
== END ==
PROVIDERS: PCP Student in an Organized Health Care Education/Training Program; Referring Provider Family Medicine; Visit Provider Family Medicine
DX: R51.9 Headache, unspecified (principal); E11.9 Type 2 diabetes mellitus without complications
CPT/HCPCS: 70551

== ENCOUNTER → 2021-02-01 08:28 | Outpatient (CLI) | payer MEDICARE, OTHER, SELFPAY ==
[2018-07-16 13:33] VITALS: BMI 31.8
--- NOTE | 2021-02-01 08:29 | DI.MG.S_ITS ---
UNILATERAL RIGHT DIGITAL DIAGNOSTIC MAMMOGRAM 3D/2D SHORT-TERM FOLLOW-UP: 02/01/2021 CLINICAL: Short term follow up of the right breast. Comparison is made to exams dated: 09/04/2020 mammogram, 01/16/2020 mammogram, and 05/24/2019 mammogram - [facility]. The tissue of right breast is heterogeneously dense. This may lower the sensitivity of mammography. There is an equal density focal asymmetry in the right breast at 12 o'clock posterior depth. This is not significantly changed. No other significant masses or calcifications are seen in the breast. IMPRESSION: PROBABLY BENIGN The equal density focal asymmetry in the right breast is unchanged and remains probably benign. A follow-up mammogram in 6 months is recommended to demonstrate stability. This exam was interpreted at Station ID: [id number]. NOTE: For mammograms, a report in lay terms will be sent to the patient. Approximately 15% of breast malignancies will not be visualized mammographically. In the management of a palpable breast mass, a negative mammogram must not discourage biopsy of a clinically suspicious lesion. Electronically Signed By: Garo Gurrola M.D. jr/:02/01/2021 09:12:39 letter sent: Followup Recommended ACR BI-RADS Category 3: Probably benign [id number]
== END ==
PROVIDERS: PCP Student in an Organized Health Care Education/Training Program; Referring Provider Student in an Organized Health Care Education/Training Program; Visit Provider Student in an Organized Health Care Education/Training Program
DX: R92.8 Other abnormal and inconclusive findings on diagnostic imaging of breast (principal)
CPT/HCPCS: 77065; G0279

== ENCOUNTER → 2021-02-04 09:18 | Outpatient (CLI) | payer MEDICARE, OTHER, SELFPAY ==
[2018-07-16 13:33] VITALS: BMI 31.8
[2021-02-04 09:33] LABS: Bacteria Urine None Seen; RBC Urine None Seen (0-5/HPF); WBC Urine None Seen (0-5/HPF)
[2021-02-04 10:22] LABS: Appearance Urine UA CLEAR; Bilirubin Urine UA NEGATIVE (NEGATIVE); Color Urine UA YELLOW; Glucose Urine UA 2+ g/dL (Negative); Ketones Urine UA NEGATIVE (NEGATIVE); Leukocyte Esterase Urine UA NEGATIVE (NEGATIVE); Nitrite Urine UA NEGATIVE (Negative); Occult Blood Urine UA NEGATIVE (Negative); Protein Urine UA NEGATIVE (Negative); Specific Gravity Urine UA 1.015 (1.000-1.035); Urobilinogen Urine UA 0.2 E.U./dL (0.2)
[2021-02-04 10:24] LABS: Hemoglobin A1C% w Est Avg Glu 8.6 % (4.0-6.0)
[2021-02-04 10:37] LABS: Culture Indicated Urine Cult Not Indicated; Mucus Urine 3+ (Negative)
[2021-02-04 10:49] LABS: BUN Creatinine Ratio 25.7 (6-22); Blood Urea Nitrogen 18 mg/dL (7-17); Calcium 9.1 mg/dL (8.4-10.2); Carbon Dioxide 25 mmol/L (22-32); Chloride 100 mmol/L (98-107); Estimated Glomerular Filt Rate > 60.0 mL/min (>60); Glucose 369 mg/dL (80-110); HEMOLYSIS < 15 (0-50); Potassium 4.5 mmol/L (3.4-5.1); Sodium 133 mmol/L (137-145)
== END ==
PROVIDERS: PCP Student in an Organized Health Care Education/Training Program; Referring Provider Student in an Organized Health Care Education/Training Program; Visit Provider Student in an Organized Health Care Education/Training Program
DX: E11.9 Type 2 diabetes mellitus without complications (principal); R10.9 Unspecified abdominal pain
CPT/HCPCS: 36415; 80048; 81001; 83036

== ENCOUNTER → 2021-05-15 10:48 | Outpatient (CLI) | payer MEDICARE, OTHER, SELFPAY ==
[2018-07-16 13:33] VITALS: BMI 31.8
[2021-05-15 11:26] LABS: Hematocrit 40.7 % (36-46); Hemoglobin 13.7 g/dL (12.0-16.0)
[2021-05-15 11:41] LABS: Creatinine Urine Random 219.6 mg/dL
[2021-05-15 11:45] LABS: Microalbumin Urine Random 1.1 mg/dL (0-1.6)
== END ==
PROVIDERS: PCP Student in an Organized Health Care Education/Training Program; Referring Provider Student in an Organized Health Care Education/Training Program; Visit Provider Student in an Organized Health Care Education/Training Program
DX: E11.9 Type 2 diabetes mellitus without complications (principal)
CPT/HCPCS: 36415; 82043; 82570; 85014; 85018

== ENCOUNTER → 2021-05-24 10:10 | Outpatient (CLI) | payer MEDICARE, OTHER, SELFPAY ==
[2018-07-16 13:33] VITALS: BMI 31.8
[2021-05-24 12:18] LABS: Cholesterol 105 mg/dL (140-199); HDL Cholesterol 34 mg/dL (40-60); LDL Cholesterol Calculated 50 mg/dL (<100); Triglycerides 103 mg/dL (35-150)
== END ==
PROVIDERS: PCP Family Medicine; Referring Provider Family Medicine; Visit Provider Family Medicine
DX: E11.9 Type 2 diabetes mellitus without complications (principal); E78.00 Pure hypercholesterolemia, unspecified
CPT/HCPCS: 36415; 80061; 83036

== ENCOUNTER 2021-07-07 11:11 | Emergency (ER) | payer MEDICARE, OTHER, SELFPAY ==
[2018-07-16 13:33] VITALS: BMI 31.8
[2021-07-07 11:15] VITALS: BP 119/59; PULSE 57; RESP 16; TEMP 36.6; O2SAT 96; BMI 32.8
--- NOTE | 2021-07-07 11:31 | DI.RAD.S_ITS ---
PROCEDURE: XR ELBOW RT MIN 3V INDICATIONS: fall TECHNIQUE: 3 views of the elbow were acquired. COMPARISON: None. FINDINGS: Bones: No fractures or dislocations. No suspicious bony lesions. Soft tissues: No elbow joint effusion. No suspicious soft tissue calcifications. IMPRESSION: No displaced fractures are seen on these plain films. If there is focal tenderness, or other clinical concern for a fracture not seen on these images in this patient with a given history of trauma, please consider a dedicated CT or a short-term followup plain film series (in 1-2 weeks) for further evaluation. Dictated by: Tavares Stock M.D. on 07/07/2021 at 11:02 Approved by: Tavares Stock M.D. on 07/07/2021 at 11:03
--- NOTE | 2021-07-07 11:32 | DI.RAD.S_ITS ---
PROCEDURE: XR RIBS RT MIN 3V W CXR 1V INDICATIONS: fall TECHNIQUE: 2 views of the right ribs were acquired, along with a single view chest. COMPARISON: [facility], CR, XR ELBOW RT MIN 3V, 07/07/2021, 11:34. [facility], CR, XR CHEST 2V, 08/18/2019, 12:42. FINDINGS: Surgical changes and devices: Sternotomy wires are seen. Bones and chest wall: A marker is placed upon the area of clinical concern. Within this region, no displaced rib fracture or other significant rib abnormality can be seen. No rib fractures are seen elsewhere. No suspicious bony lesions. Age-appropriate bony degenerative changes are seen. Overlying soft tissues appear unremarkable. Lungs and pleura: No pleural effusions or pneumothorax. Lungs appear clear. Mediastinum: Mediastinal contours appear normal. Heart size is normal. IMPRESSION: No displaced fractures can be seen. No pneumothorax is seen. Postoperative and degenerative changes are seen. Dictated by: Tavares Stock M.D. on 07/07/2021 at 11:03 Approved by: Tavares Stock M.D. on 07/07/2021 at 11:04
--- NOTE | 2021-07-07 12:02 | ED.UPPEXIN ---
HPI - Extremity Injury (Upper) <Ranjeet Elizabeth PA-C - Last Filed: 07/07/21 12:21> General Chief Complaint: Extremity Injury, Upper Stated Complaint: fell and hurt elbow and ribs Time Seen by Provider: 07/07/21 11:58 Source: patient Mode of arrival: Ambulatory Limitations: no limitations History of Present Illness HPI narrative: Mai presents today with chief complaint of right elbow pain in addition to right lower rib pain that started this morning at about 9:00 a.m. after she sustained a ground level fall while walking her dog. She reports that her dog pulled the leash which caused her to trip and fall onto the ground. She was able to get up afterwards without any significant difficulty. She reports initially that her elbow was much more swollen but the swelling has started to decrease. She has not taken anything to help alleviate her symptoms at this time. She is primarily concerned about her right lower ribs as they are tender to touch. She denies any significant decreased range of motion of her right elbow or arm. She denies hitting her head, loss of consciousness, chest pain, difficulty breathing, shortness of breath, abdominal pain, difficulty walking or any other acute concerns or complaints at this time. Related Data Home Medications Medication Instructions Recorded Confirmed acetaminophen 650 mg 650 mg PO Q12H 08/09/20 02/04/21 tablet,extended release (Tylenol Arthritis Pain) Previous Rx's Medication Instructions Recorded aspirin 81 mg chewable tablet 81 mg PO DAILY #90 tab 08/10/18 tramadol 50 mg tablet 50 mg PO BID PRN #60 tab 02/04/21 metformin 500 mg tablet 250 mg PO BID #90 tab 03/05/21 loratadine 10 mg tablet (Claritin) 10 mg PO DAILY PRN #90 tab 03/25/21 atorvastatin 40 mg tablet 80 mg PO DAILY #90 tab 03/26/21 lisinopril 20 mg tablet 20 mg PO BID #180 tab 03/26/21 metoprolol succinate 50 mg capsule 50 mg PO DAILY #90 ea 03/26/21 sprinkle, ext. release 24 hr metoprolol tartrate 100 mg tablet 100 mg PO BID #180 tab 03/26/21 metoprolol succinate 50 mg 50 mg PO DAILY #90 tab 04/02/21 tablet,extended release 24 hr Allergies Allergy/AdvReac Type Severity Reaction Status Date / Time No Known Drug Allergies Allergy Verified 02/04/21 08:51 Review of Systems <Ranjeet Elizabeth PA-C - Last Filed: 07/07/21 12:21> Review of Systems Narrative: As per HPI Patient History <Ranjeet Elizabeth PA-C - Last Filed: 07/07/21 12:21> Medical History (Updated 07/07/21 @ 12:17 by Ranjeet Elizabeth PA-C) Ankle pain Arthritis of knee (12/31/15) Atrial fibrillation Coronary artery disease Essential hypertension (12/31/15) Hypertension Low back pain (~09/2017) Lumbar stenosis (~09/2017) Osteoarthritis Surgical History (Updated 02/04/21 @ 09:22 by Andre Escamilla MD) Hx of hand surgery Hx of hysterectomy Hx of tonsillectomy Hx of total knee arthroplasty S/P coronary artery bypass graft x 3 Social History household members: spouse and family Smoking Status: Never smoker Smoking Status: Never smoker alcohol intake frequency: holidays/special occasions only Substance Use Type: does not use Exam <Ranjeet Elizabeth PA-C - Last Filed: 07/07/21 12:21> Narrative Exam Narrative: Exam Narrative: Const General: cooperative, healthy appearing, comfortable, no acute distress, well developed and well groomed Nutritional Appearance: elevated BMI Orientation: alert and oriented x3 HENMT Head: normal to inspection and atraumatic Ears: hearing grossly normal bilaterally Nose: external nose normal and nares normal Face and sinus: normal facial exam Neck Neck: normal visual inspection and supple Resp Effort & Inspection: normal respiratory effort, able to speak in complete sentences, no audible wheezes, not labored, no nasal flaring and no respiratory distress, lung sounds equal bilaterally. Chest Minimal tenderness to the right lower chest wall just inferior to right breast. No rib tenderness with anterior-posterior compression or lateral compression of the ribs. Extremities Upper extremities exposed for evaluation. Mild bruising and swelling to the right elbow. Small abrasion also noted. Not currently bleeding. Minimal tenderness to the touch. She has full range of motion of the elbow, wrist and shoulder without difficulty. GI Nondistended, normal bowel sounds, nontender to palpation. Neuro General: alert, oriented x3, gait normal, tone normal and moves all extremities Cognition: normal cognition Speech: speech normal Gait: normal gait Psych Appearance: grossly normal and well kempt Mental Status: mental status grossly normal Speech and Movement: speech and movement normal Mood: congruent mood Affect: normal affect Initial Vital Signs Initial Vital Signs: Vital Signs Temperature 98 F 07/07/21 11:15 Pulse Rate 57 L 07/07/21 11:15 Respiratory Rate 16 07/07/21 11:15 Blood Pressure 119/59 L 07/07/21 11:15 Pulse Oximetry 96 07/07/21 11:15 <Kiran Walters MD - Last Filed: 07/07/21 13:11> Initial Vital Signs Initial Vital Signs: Vital Signs Temperature 98 F 07/07/21 11:15 Pulse Rate 57 L 07/07/21 11:15 Respiratory Rate 16 07/07/21 11:15 Blood Pressure 119/59 L 07/07/21 11:15 Pulse Oximetry 96 07/07/21 11:15 Course <Ranjeet Elizabeth PA-C - Last Filed: 07/07/21 12:21> Orders Ordered: ED Orders 07/07/21 11:31 XR elbow RT min 3V Stat 07/07/21 11:32 XR ribs RT min 3V w CXR1V Stat Vital Signs Vital signs: Vital Signs - 8 hr 07/07/21 11:15 Temperature 98 F Pulse Rate 57 L Respiratory Rate 16 Blood Pressure 119/59 L Pulse Oximetry 96 <Kiran Walters MD - Last Filed: 07/07/21 13:11> Orders Ordered: ED Orders 07/07/21 11:31 XR elbow RT min 3V Stat 07/07/21 11:32 XR ribs RT min 3V w CXR1V Stat Vital Signs Vital signs: Vital Signs - 8 hr 07/07/21 11:15 Temperature 98 F Pulse Rate 57 L Respiratory Rate 16 Blood Pressure 119/59 L Pulse Oximetry 96 MDM - Extremity Injury (Upper) <Ranjeet Elizabeth PA-C - Last Filed: 07/07/21 12:21> MDM Narrative Medical decision making narrative: Mai has a reassuring physical examination. X-rays do not show any acute fracture or other acute abnormalities. Will treat for contusion at this time. Return precautions were discussed with the patient. Patient verbalizes understanding and agrees to plan and has no further concerns at this time. Thank you A [id number] system was used with the dictation of this note. Please disregard any spelling or grammatical errors. Discharge Plan Departure Patient Disposition: Home Clinical Impression: Fall Qualifiers: Encounter type: initial encounter Qualified Code(s): W19.XXXA - Unspecified fall, initial encounter Contusion of rib Qualifiers: Encounter type: initial encounter Laterality: right Qualified Code(s): S20.211A - Contusion of right front wall of thorax, initial encounter Contusion of elbow, right Qualifiers: Encounter type: initial encounter Qualified Code(s): S50.01XA - Contusion of right elbow, initial encounter Instructions: DI for Rib Contusion Activity Restrictions/Additional Instructions: It was very nice to meet you this afternoon. No fracture was noted on any of your x-rays. Expect that he will be a bit sore for the next few days but anticipate that your symptoms will improve quickly. You experience any significant worsening pain, difficulty breathing or have any additional concerns or complaints do not hesitate to return for re-evaluation. Thank you Ranjeet Elizabeth PA-C Prescriptions: No Action aspirin 81 mg tablet,chewable 81 mg PO DAILY Qty: 90 RF: 3 metformin 500 mg tablet 250 mg PO BID Qty: 90 RF: 1 loratadine [Claritin] 10 mg tablet 10 mg PO DAILY PRN (Reason: Allergy Symptoms) Qty: 90 RF: 1 atorvastatin 40 mg tablet 80 mg PO DAILY Qty: 90 RF: 3 lisinopril 20 mg tablet 20 mg PO BID Qty: 180 RF: 3 metoprolol succinate 50 mg capsule,sprinkle,ER 24hr 50 mg PO DAILY Qty: 90 RF: 3 metoprolol tartrate 100 mg tablet 100 mg PO BID Qty: 180 RF: 3 metoprolol succinate 50 mg tablet extended release 24 hr 50 mg PO DAILY Qty: 90 RF: 3 acetaminophen [Tylenol Arthritis Pain] 650 mg tablet extended release 650 mg PO Q12H RF: 0 tramadol 50 mg tablet 50 mg PO BID PRN (Reason: pain) Qty: 60 RF: 5 Referrals: Parth Hancock MD [Primary Care Provider] -
== END 2021-07-07 12:20 | disposition home or self-care (01) ==
PROVIDERS: Emergency Provider Physician Assistant; PCP Family Medicine
DX: S20.211A Contusion of right front wall of thorax, initial encounter (principal); S50.01XA Contusion of right elbow, initial encounter; W19.XXXA Unspecified fall, initial encounter
CPT/HCPCS: 71101; 73080; 99281; 99283

== ENCOUNTER → 2021-08-06 08:32 | Outpatient (CLI) | payer MEDICARE, OTHER, SELFPAY ==
[2018-07-16 13:33] VITALS: BMI 31.8
--- NOTE | 2021-08-06 08:33 | DI.MG.S_ITS ---
BILATERAL DIGITAL DIAGNOSTIC MAMMOGRAM 3D/2D: 08/06/2021 CLINICAL: Short follow up, due bilateral. Comparison is made to exams dated: 02/01/2021 mammogram, 09/04/2020 mammogram, 01/16/2020 mammogram, 05/24/2019 ultrasound, 05/24/2019 mammogram, and 05/04/2019 mammogram - [facility]. The tissue of both breasts is heterogeneously dense. This may lower the sensitivity of mammography. The benign focal asymmetry in the right breast at 12 o'clock posterior depth is no longer seen. The focal asymmetry has been stable or less prominent dating back to at least the prior exam from 05/04/2019, and is therefore considered benign. No other significant masses, calcifications, or other findings are seen in either breast. IMPRESSION: BENIGN There is no mammographic evidence of malignancy. A 1 year screening mammogram is recommended. This exam was interpreted at Station ID: [id number]. NOTE: For mammograms, a report in lay terms will be sent to the patient. Approximately 15% of breast malignancies will not be visualized mammographically. In the management of a palpable breast mass, a negative mammogram must not discourage biopsy of a clinically suspicious lesion. Electronically Signed By: Domingo [email or web address]/ben:08/06/2021 09:23:22 letter sent: Normal Exam ACR BI-RADS Category 2: Benign Finding(s) [id number]
== END ==
PROVIDERS: PCP Family Medicine; Referring Provider Student in an Organized Health Care Education/Training Program; Visit Provider Student in an Organized Health Care Education/Training Program
DX: R92.8 Other abnormal and inconclusive findings on diagnostic imaging of breast (principal)
CPT/HCPCS: 77066; G0279

== ENCOUNTER → 2021-11-13 06:48 | Outpatient (CLI) | payer MEDICARE, OTHER, SELFPAY ==
[2018-07-16 13:33] VITALS: BMI 31.8
[2021-11-13 07:34] LABS: Hemoglobin A1C% w Est Avg Glu 6.7 % (4.0-6.0)
[2021-11-13 07:58] LABS: Cholesterol 114 mg/dL (140-199); HDL Cholesterol 47 mg/dL (40-60); LDL Cholesterol Calculated 48 mg/dL (<100); Triglycerides 95 mg/dL (35-150)
== END ==
PROVIDERS: PCP Family Medicine; Referring Provider Family Medicine; Visit Provider Family Medicine
DX: E11.9 Type 2 diabetes mellitus without complications (principal); E78.00 Pure hypercholesterolemia, unspecified
CPT/HCPCS: 36415; 80061; 83036

== ENCOUNTER → 2022-02-20 07:08 | Outpatient (CLI) | payer MEDICARE, OTHER, SELFPAY ==
[2018-07-16 13:33] VITALS: BMI 31.8
[2022-02-20 08:14] LABS: Hemoglobin A1C% w Est Avg Glu 7.3 % (4.0-6.0)
== END ==
PROVIDERS: PCP Family Medicine; Referring Provider Family Medicine; Visit Provider Family Medicine
DX: E11.9 Type 2 diabetes mellitus without complications (principal)
CPT/HCPCS: 36415; 83036

== ENCOUNTER → 2022-07-03 06:49 | Outpatient (CLI) | payer MEDICARE, OTHER, SELFPAY ==
[2018-07-16 13:33] VITALS: BMI 31.8
[2022-07-03 09:39] LABS: HEMOLYSIS < 15 (0-50); Sodium 138 mmol/L (137-145)
[2022-07-03 09:40] LABS: BUN Creatinine Ratio 25.9 (6-22); Blood Urea Nitrogen 21 mg/dL (7-17); Calcium 9.3 mg/dL (8.4-10.2); Carbon Dioxide 27 mmol/L (22-32); Chloride 102 mmol/L (98-107); Estimated Glomerular Filt Rate > 60 mL/min (>60); Glucose 167 mg/dL (80-110); Potassium 4.3 mmol/L (3.4-5.1)
== END ==
PROVIDERS: PCP Family Medicine; Referring Provider Internal Medicine Cardiovascular Disease; Visit Provider Internal Medicine Cardiovascular Disease
DX: I25.10 Atherosclerotic heart disease of native coronary artery without angina pectoris (principal)
CPT/HCPCS: 36415; 80048

== ENCOUNTER → 2022-08-06 14:18 | Outpatient (CLI) | payer MEDICARE, OTHER, SELFPAY ==
[2018-07-16 13:33] VITALS: BMI 31.8
[2022-08-06 16:36] LABS: Hemoglobin A1C% w Est Avg Glu 6.9 % (4.0-6.0)
[2022-08-06 17:53] LABS: Creatinine Urine Random 39.5 mg/dL
[2022-08-06 17:59] LABS: Microalbumi Creatinin Ratio Ur 22.7 ug/mg CR (<30); Microalbumin Urine Random 0.9 mg/dL (0-1.6)
== END ==
PROVIDERS: PCP Family Medicine; Referring Provider Family Medicine; Visit Provider Family Medicine
DX: E11.9 Type 2 diabetes mellitus without complications (principal); R63.5 Abnormal weight gain
CPT/HCPCS: 36415; 82043; 82570; 83036; 84443

== ENCOUNTER 2023-06-03 06:51 | Emergency (ER) | payer MEDICARE, OTHER, SELFPAY ==
[2018-07-16 13:33] VITALS: BMI 31.8
[2023-06-03] VITALS (8 sets, daily range): BP systolic 129–171; BP diastolic 63–91; PULSE 71–79; RESP 18–28; TEMP 36.6; O2SAT 93–98; BMI 34.5
--- NOTE | 2023-06-03 06:56 | DI.RAD.S_ITS ---
PROCEDURE: XR CHEST 1V INDICATIONS: chest pain TECHNIQUE: One view of the chest was acquired. COMPARISON: [facility], CR, XR CHEST 2V, 08/18/2019, 12:42. FINDINGS: Surgical changes and devices: Sternal wires. Lungs and pleura: Lungs are clear. No pleural effusions or pneumothorax. Mediastinum: Mediastinal contours appear normal. Heart size is normal. Bones and chest wall: No suspicious bony lesions. Overlying soft tissues appear unremarkable. IMPRESSION: No acute pulmonary process. Dictated by: Rima Harris M.D. on 06/03/2023 at 8:10 Approved by: Rima Harris M.D. on 06/03/2023 at 8:10
--- NOTE | 2023-06-03 07:03 | ED_ITS ---
HPI - Chest Pain <Nino Lin DO - Last Filed: 06/03/23 19:08> General Chief Complaint: Chest Pain Stated Complaint: chest pain, headache, not feeling well Time Seen by Provider: 06/03/23 06:54 Source: patient Mode of arrival: Ambulatory Limitations: no limitations History of Present Illness HPI narrative: Patient is a 72-year-old female. She does have a history of coronary artery di sease. Has had a heart attack and coronary artery bypass graft a couple years ago. She is not diabetic. No underlying lung pathology. States she woke up this morning approximately 1.5 hours prior to arrival just generally not feeling well. She states she is not having chest pain. No shortness of breath. She is having sinus drainage. No cough. No fevers. No abdominal pain. She did have some nausea in the shower this morning but not currently nauseous. Related Data Home Medications Medication Instructions Recorded Confirmed acetaminophen 650 mg 650 mg PO Q12H 08/09/20 03/13/23 tablet,extended release (Tylenol Arthritis Pain) Previous Rx's Medication Instructions Recorded aspirin 81 mg chewable tablet 81 mg PO DAILY #90 tabs 08/10/18 tramadol 50 mg tablet 50 mg PO BID PRN pain #60 tabs 02/04/21 loratadine 10 mg tablet (Claritin) 10 mg PO DAILY PRN Allergy 03/25/21 Symptoms #90 tabs lisinopril 20 mg tablet 20 mg PO BID #180 tabs 03/26/21 metoprolol succinate 50 mg capsule 50 mg PO DAILY #90 ea 03/26/21 sprinkle, ext. release 24 hr metoprolol succinate 50 mg 50 mg PO DAILY #30 tabs 04/07/22 tablet,extended release 24 hr atorvastatin 40 mg tablet 80 mg PO DAILY #30 tabs 06/30/22 metoprolol tartrate 100 mg tablet 100 mg PO BID #60 tabs 06/30/22 triamcinolone acetonide 0.5 % 1 applic topical TID #15 grams 03/09/23 topical cream atorvastatin 80 mg tablet 80 mg PO BEDTIME #30 tabs 06/03/23 Allergies Allergy/AdvReac Type Severity Reaction Status Date / Time No Known Drug Allergies Allergy Verified 03/13/23 12:30 Review of Systems <DO Marcel Rock Last Filed: 06/03/23 19:08> Review of Systems ROS Unobtainable: All systems reviewed & are unremarkable except as noted in HPI and below Patient History <DO Marcel Rock Last Filed: 06/03/23 19:08> Medical History Ankle pain Arthritis of knee (12/31/15) Atrial fibrillation Coronary artery disease Essential hypertension (12/31/15) Hypertension Low back pain (~09/2017) Lumbar stenosis (~09/2017) Osteoarthritis Surgical History (Updated 02/04/21 @ 09:22 by Andre Escamilla MD) Hx of hand surgery Hx of hysterectomy Hx of tonsillectomy Hx of total knee arthroplasty S/P coronary artery bypass graft x 3 Social History household members: spouse and family Smoking Status: Never smoker Smoking Status: Never smoker alcohol intake frequency: holidays/special occasions only Substance Use Type: does not use Exam <DO Marcel Rock Last Filed: 06/03/23 19:08> Initial Vital Signs Initial Vital Signs: Vital Signs Pulse Rate 76 06/03/23 06:57 Respiratory Rate 18 06/03/23 06:57 Blood Pressure 171/72 H 06/03/23 06:57 Pulse Oximetry 95 06/03/23 06:57 Const General: cooperative, comfortable and No ill appearing HENMT Head: normal to inspection and normocephalic Resp Effort & Inspection: normal respiratory effort Auscultation: clear to auscultation bilaterally Cardio Rate: regular rate Rhythm: regular rhythm GI Inspection: normal to inspection Palpation: soft and No tender Neuro General: patient alert, patient awake, patient oriented x3 and moves all extremities Extrem General: capillary refill normal <Germaine Guidry DO - Last Filed: 06/03/23 10:31> Initial Vital Signs Initial Vital Signs: Vital Signs Pulse Rate 76 06/03/23 06:57 Respiratory Rate 18 06/03/23 06:57 Blood Pressure 171/72 H 06/03/23 06:57 Pulse Oximetry 95 06/03/23 06:57 Course <DO Marcel Rock Last Filed: 06/03/23 19:08> Orders Ordered: ED Orders 06/03/23 06:56 XR chest 1V Stat 06/03/23 06:57 EKG-12 Lead Stat 06/03/23 07:00 Complete Blood Count AUTO DIFF Stat Comprehensive Metabolic Panel Stat Lipase Stat Troponin & CK Cardiac Panel Stat 06/03/23 07:25 Respiratory Panel (Film Array) Stat 06/03/23 09:00 Troponin I Stat Vital Signs Vital signs: Vital Signs - 8 hr 06/03/23 06:59 06/03/23 06:57 06/03/23 06:57 Temperature 97.8 F Pulse Rate 79 76 Respiratory Rate 18 18 Blood Pressure 171/72 H 171/72 H Pulse Oximetry 95 95 Oxygen Delivery Method Room Air 06/03/23 07:00 06/03/23 07:00 06/03/23 07:30 Temperature Pulse Rate 73 Respiratory Rate 20 Blood Pressure 158/72 H 144/63 H Pulse Oximetry 98 Oxygen Delivery Method 06/03/23 07:30 06/03/23 08:00 06/03/23 08:00 Temperature Pulse Rate 71 72 Respiratory Rate 24 28 H Blood Pressure 141/66 H Pulse Oximetry 94 93 Oxygen Delivery Method Room Air 06/03/23 08:30 06/03/23 08:30 06/03/23 09:00 Temperature Pulse Rate 71 Respiratory Rate 18 Blood Pressure 129/65 135/91 H Pulse Oximetry 93 Oxygen Delivery Method 06/03/23 09:00 06/03/23 09:30 06/03/23 09:30 Temperature Pulse Rate 74 71 Respiratory Rate 20 22 Blood Pressure 142/69 H Pulse Oximetry 96 95 Oxygen Delivery Method <Germaine Guidry, - Last Filed: 06/03/23 10:31> Orders Ordered: ED Orders 06/03/23 06:56 XR chest 1V Stat 06/03/23 06:57 EKG-12 Lead Stat 06/03/23 07:00 Complete Blood Count AUTO DIFF Stat Comprehensive Metabolic Panel Stat Lipase Stat Troponin & CK Cardiac Panel Stat 06/03/23 07:25 Respiratory Panel (Film Array) Stat 06/03/23 09:00 Troponin I Stat Vital Signs Vital signs: Vital Signs - 8 hr 06/03/23 06:59 06/03/23 06:57 06/03/23 06:57 Temperature 97.8 F Pulse Rate 79 76 Respiratory Rate 18 18 Blood Pressure 171/72 H 171/72 H Pulse Oximetry 95 95 Oxygen Delivery Method Room Air 06/03/23 07:00 06/03/23 07:00 06/03/23 07:30 Temperature Pulse Rate 73 Respiratory Rate 20 Blood Pressure 158/72 H 144/63 H Pulse Oximetry 98 Oxygen Delivery Method 06/03/23 07:30 06/03/23 08:00 06/03/23 08:00 Temperature Pulse Rate 71 72 Respiratory Rate 24 28 H Blood Pressure 141/66 H Pulse Oximetry 94 93 Oxygen Delivery Method Room Air 06/03/23 08:30 06/03/23 08:30 06/03/23 09:00 Temperature Pulse Rate 71 Respiratory Rate 18 Blood Pressure 129/65 135/91 H Pulse Oximetry 93 Oxygen Delivery Method 06/03/23 09:00 06/03/23 09:30 06/03/23 09:30 Temperature Pulse Rate 74 71 Respiratory Rate 20 22 Blood Pressure 142/69 H Pulse Oximetry 96 95 Oxygen Delivery Method MDM - Chest Pain <Nino Lin DO - Last Filed: 06/03/23 19:08> Lab Data 06/03/23 07:00 06/03/23 07:00 Labs: Lab Results 06/03/23 06/03/23 06/03/23 Range/Units 07:00 07:00 07:25 WBC 4.9 (4.5-11.0) X10^3/uL RBC 4.48 (4.0-5.2) X10^6/uL Hgb 14.1 (12.0-16.0) g/dL Hct 40.2 (36-46) % MCV 89.9 (80-100) fL MCH 31.5 (26-34) PG MCHC 35.0 (30-36) % RDW 12.5 (11.6-14.8) % Plt Count 133 L (150-400) X10^3/uL Neut % (Auto) 83.2 H (50-75) % Lymph % (Auto) 4.7 L (25-40) % Trinity % (Auto) 9.9 (3-14) % Eos % (Auto) 1.8 L (2-4) % Baso % (Auto) 0.4 (0-2) % Neut # (Auto) 4100 (1983-0391) /uL Lymph # (Auto) 200 L (0969-3116) /uL Trinity # (Auto) 500 (0-900) /uL Eos # (Auto) 100 (0-450) /uL Baso # (Auto) 0 (0-100) /uL Sodium 133 L (137-145) mmol/L Potassium 4.3 (3.4-5.1) mmol/L Chloride 99 (98-107) mmol/L Carbon Dioxide 28 (22-32) mmol/L BUN 19 H (7-17) mg/dL Creatinine 0.75 (0.52-1.04) mg/dL Estimated GFR > 60 (>60) mL/min BUN/Creatinine Ratio 25.3 H (6-22) Glucose 233 H (80-110) mg/dL Calcium 9.2 (8.4-10.2) mg/dL Total Bilirubin 0.8 (0.2-1.3) mg/dL AST 39 H (14-36) IU/L ALT 41 H (<35) IU/L Alkaline Phosphatase 130 H (38-126) U/L Total Creatine Kinase 52 (30-135) U/L Troponin I < 0.012 (0.01-0.034) ng/mL Total Protein 7.5 (6.3-8.2) g/dL Albumin 4.3 (3.5-5.0) g/dL Globulin 3.2 (1.7-4.1) g/dL Albumin/Globulin Ratio 1.3 (1.0-2.8) Lipase 189 (23-300) U/L Chlamy pneumoniae PCR Not detected (Not Detect) Adenovirus (PCR) Not detected (Not Detect) B. pertussis DNA (PCR) Not detected (Not Detecte) B.parapertussis DNA PCR Not detected (Not Detecte) Coronavirus OC43 (PCR) Not detected (Not Detect) Coronavirus HKU1 (PCR) Not detected (Not Detect) Coronavirus 229E (PCR) Not detected (Not Detect) SARS-CoV-2 (PCR) Detected H (Not Detecte) Coronavirus NL63 (PCR) Not detected (Not Detect) Human Metapneumovir PCR Not detected (Not Detect) Influenza Type A (PCR) Not detected (Not Detect) Influenza Type B (PCR) Not detected (Not Detect) M. pneumoniae (PCR) Not detected (Not Detect) Parainfluenza 1 (PCR) Not detected (Not Detect) Parainfluenza 2 (PCR) Not detected (Not Detect) Parainfluenza 3 (PCR) Not detected (Not Detect) Parainfluenza 4 (PCR) Not detected (Not Detect) RSV (PCR) Not detected (Not Detect) Entero/Rhino (PCR) Not detected (Not Detect) 06/03/23 Range/Units 09:00 WBC (4.5-11.0) X10^3/uL RBC (4.0-5.2) X10^6/uL Hgb (12.0-16.0) g/dL Hct (36-46) % MCV (80-100) fL MCH (26-34) PG MCHC (30-36) % RDW (11.6-14.8) % Plt Count (150-400) X10^3/uL Neut % (Auto) (50-75) % Lymph % (Auto) (25-40) % Trinity % (Auto) (3-14) % Eos % (Auto) (2-4) % Baso % (Auto) (0-2) % Neut # (Auto) (8465-7525) /uL Lymph # (Auto) (3067-4862) /uL Trinity # (Auto) (0-900) /uL Eos # (Auto) (0-450) /uL Baso # (Auto) (0-100) /uL Sodium (137-145) mmol/L Potassium (3.4-5.1) mmol/L Chloride (98-107) mmol/L Carbon Dioxide (22-32) mmol/L BUN (7-17) mg/dL Creatinine (0.52-1.04) mg/dL Estimated GFR (>60) mL/min BUN/Creatinine Ratio (6-22) Glucose (80-110) mg/dL Calcium (8.4-10.2) mg/dL Total Bilirubin (0.2-1.3) mg/dL AST (14-36) IU/L ALT (<35) IU/L Alkaline Phosphatase (38-126) U/L Total Creatine Kinase (30-135) U/L Troponin I < 0.012 (0.01-0.034) ng/mL Total Protein (6.3-8.2) g/dL Albumin (3.5-5.0) g/dL Globulin (1.7-4.1) g/dL Albumin/Globulin Ratio (1.0-2.8) Lipase (23-300) U/L Chlamy pneumoniae PCR (Not Detect) Adenovirus (PCR) (Not Detect) B. pertussis DNA (PCR) (Not Detecte) B.parapertussis DNA PCR (Not Detecte) Coronavirus OC43 (PCR) (Not Detect) Coronavirus HKU1 (PCR) (Not Detect) Coronavirus 229E (PCR) (Not Detect) SARS-CoV-2 (PCR) (Not Detecte) Coronavirus NL63 (PCR) (Not Detect) Human Metapneumovir PCR (Not Detect) Influenza Type A (PCR) (Not Detect) Influenza Type B (PCR) (Not Detect) M. pneumoniae (PCR) (Not Detect) Parainfluenza 1 (PCR) (Not Detect) Parainfluenza 2 (PCR) (Not Detect) Parainfluenza 3 (PCR) (Not Detect) Parainfluenza 4 (PCR) (Not Detect) RSV (PCR) (Not Detect) Entero/Rhino (PCR) (Not Detect) ECG Data Attestation: I personally reviewed and interpreted this ECG as follows: Interpretation: Sinus rhythm Ventricular rate is 71 Normal axis Normal QRS Normal QTC No ST T wave changes MDM Narrative Medical decision making narrative: Patient does have history of coronary artery disease. Has no specific chest pain or shortness of breath just a general malaise. Sinus rhythm on her EKG. Care turned over to day provider to follow-up and disposition. <Germaine Guidry, - Last Filed: 06/03/23 10:31> Lab Data Labs: Lab Results 06/03/23 06/03/23 06/03/23 Range/Units 07:00 07:00 07:25 WBC 4.9 (4.5-11.0) X10^3/uL RBC 4.48 (4.0-5.2) X10^6/uL Hgb 14.1 (12.0-16.0) g/dL Hct 40.2 (36-46) % MCV 89.9 (80-100) fL MCH 31.5 (26-34) PG MCHC 35.0 (30-36) % RDW 12.5 (11.6-14.8) % Plt Count 133 L (150-400) X10^3/uL Neut % (Auto) 83.2 H (50-75) % Lymph % (Auto) 4.7 L (25-40) % Trinity % (Auto) 9.9 (3-14) % Eos % (Auto) 1.8 L (2-4) % Baso % (Auto) 0.4 (0-2) % Neut # (Auto) 4100 (4095-3846) /uL Lymph # (Auto) 200 L (3311-1370) /uL Trinity # (Auto) 500 (0-900) /uL Eos # (Auto) 100 (0-450) /uL Baso # (Auto) 0 (0-100) /uL Sodium 133 L (137-145) mmol/L Potassium 4.3 (3.4-5.1) mmol/L Chloride 99 (98-107) mmol/L Carbon Dioxide 28 (22-32) mmol/L BUN 19 H (7-17) mg/dL Creatinine 0.75 (0.52-1.04) mg/dL Estimated GFR > 60 (>60) mL/min BUN/Creatinine Ratio 25.3 H (6-22) Glucose 233 H (80-110) mg/dL Calcium 9.2 (8.4-10.2) mg/dL Total Bilirubin 0.8 (0.2-1.3) mg/dL AST 39 H (14-36) IU/L ALT 41 H (<35) IU/L Alkaline Phosphatase 130 H (38-126) U/L Total Creatine Kinase 52 (30-135) U/L Troponin I < 0.012 (0.01-0.034) ng/mL Total Protein 7.5 (6.3-8.2) g/dL Albumin 4.3 (3.5-5.0) g/dL Globulin 3.2 (1.7-4.1) g/dL Albumin/Globulin Ratio 1.3 (1.0-2.8) Lipase 189 (23-300) U/L Chlamy pneumoniae PCR Not detected (Not Detect) Adenovirus (PCR) Not detected (Not Detect) B. pertussis DNA (PCR) Not detected (Not Detecte) B.parapertussis DNA PCR Not detected (Not Detecte) Coronavirus OC43 (PCR) Not detected (Not Detect) Coronavirus HKU1 (PCR) Not detected (Not Detect) Coronavirus 229E (PCR) Not detected (Not Detect) SARS-CoV-2 (PCR) Detected H (Not Detecte) Coronavirus NL63 (PCR) Not detected (Not Detect) Human Metapneumovir PCR Not detected (Not Detect) Influenza Type A (PCR) Not detected (Not Detect) Influenza Type B (PCR) Not detected (Not Detect) M. pneumoniae (PCR) Not detected (Not Detect) Parainfluenza 1 (PCR) Not detected (Not Detect) Parainfluenza 2 (PCR) Not detected (Not Detect) Parainfluenza 3 (PCR) Not detected (Not Detect) Parainfluenza 4 (PCR) Not detected (Not Detect) RSV (PCR) Not detected (Not Detect) Entero/Rhino (PCR) Not detected (Not Detect) 06/03/23 Range/Units 09:00 WBC (4.5-11.0) X10^3/uL RBC (4.0-5.2) X10^6/uL Hgb (12.0-16.0) g/dL Hct (36-46) % MCV (80-100) fL MCH (26-34) PG MCHC (30-36) % RDW (11.6-14.8) % Plt Count (150-400) X10^3/uL Neut % (Auto) (50-75) % Lymph % (Auto) (25-40) % Trinity % (Auto) (3-14) % Eos % (Auto) (2-4) % Baso % (Auto) (0-2) % Neut # (Auto) (7712-7074) /uL Lymph # (Auto) (5246-8999) /uL Trinity # (Auto) (0-900) /uL Eos # (Auto) (0-450) /uL Baso # (Auto) (0-100) /uL Sodium (137-145) mmol/L Potassium (3.4-5.1) mmol/L Chloride (98-107) mmol/L Carbon Dioxide (22-32) mmol/L BUN (7-17) mg/dL Creatinine (0.52-1.04) mg/dL Estimated GFR (>60) mL/min BUN/Creatinine Ratio (6-22) Glucose (80-110) mg/dL Calcium (8.4-10.2) mg/dL Total Bilirubin (0.2-1.3) mg/dL AST (14-36) IU/L ALT (<35) IU/L Alkaline Phosphatase (38-126) U/L Total Creatine Kinase (30-135) U/L Troponin I < 0.012 (0.01-0.034) ng/mL Total Protein (6.3-8.2) g/dL Albumin (3.5-5.0) g/dL Globulin (1.7-4.1) g/dL Albumin/Globulin Ratio (1.0-2.8) Lipase (23-300) U/L Chlamy pneumoniae PCR (Not Detect) Adenovirus (PCR) (Not Detect) B. pertussis DNA (PCR) (Not Detecte) B.parapertussis DNA PCR (Not Detecte) Coronavirus OC43 (PCR) (Not Detect) Coronavirus HKU1 (PCR) (Not Detect) Coronavirus 229E (PCR) (Not Detect) SARS-CoV-2 (PCR) (Not Detecte) Coronavirus NL63 (PCR) (Not Detect) Human Metapneumovir PCR (Not Detect) Influenza Type A (PCR) (Not Detect) Influenza Type B (PCR) (Not Detect) M. pneumoniae (PCR) (Not Detect) Parainfluenza 1 (PCR) (Not Detect) Parainfluenza 2 (PCR) (Not Detect) Parainfluenza 3 (PCR) (Not Detect) Parainfluenza 4 (PCR) (Not Detect) RSV (PCR) (Not Detect) Entero/Rhino (PCR) (Not Detect) Imaging Data Chest x-ray: Radiologist's Impression: Mai Del Real??72??F??1950 ? Allergy/Adv: No Known Drug Allergies Close Chest X-Ray (Signed) Rima Harris - 06/03/23 Mammogram Diagnostic (Signed) Domingo Anaya - 08/06/21 Ribs X-Ray (Signed) Tavares Stock - 07/07/21 Elbow X-Ray (Signed) Tavares Stock - 07/07/21 Mammogram Diagnostic (Signed) Garo Gurrola - 02/01/21 Brain MRI (Signed) yAo Shah - 12/05/20 DEXA Result 09/21/20 Bone Densitometry 09/21/20 Mammogram Diagnostic (Signed) Domingo Anaya - 09/04/20 Mammogram Diagnostic (Signed) Jimbo Vermawn - 01/16/20 Chest X-Ray (Signed) Debra Avendano - 08/18/19 Mammogram, Additional Views (Signed) Cara Tatum - 05/24/19 Breast Ultrasound (Signed) Cara Tatum - 05/24/19 Mammogram Screening (Signed) Jose Alcantara - 05/04/19 Telemetry Strips 07/11/18 Chest X-Ray (Signed) Nishi Gongng - 07/11/18 Launch?[address] [address] XRay Report Signed Patient: Mai Del Real MR#: [id number] : 1950 Acct:[id number] Age/Sex: 72 / F Date of Service: 06/03/23 Loc: Accession Number: [id number] ?? Procedure: XR chest 1V Ordering Provider: Nino Lin D.O. PROCEDURE:? XR CHEST 1V ? INDICATIONS:? chest pain ? TECHNIQUE:? One view of the chest was acquired.? ? COMPARISON:? [facility], , XR CHEST 2V, 08/18/2019, 12:42. ? FINDINGS:? ? Surgical changes and devices:? Sternal wires. ? Lungs and pleura:? Lungs are clear.? No pleural effusions or pneumothorax.? ? Mediastinum:? Mediastinal contours appear normal.? Heart size is normal.? ? Bones and chest wall:? No suspicious bony lesions.? Overlying soft tissues appear unremarkable.? ? IMPRESSION:? No acute pulmonary process. ? ? Dictated by: Rima Harris M.D. on 06/03/2023 at 8:10 ? ? Approved by: Rima Harris M.D. on 06/03/2023 at 8:10?? ECG Data Interpretation: Sinus rhythm Ventricular rate is 71 Normal axis Normal QRS Normal QTC No ST T wave changes EKG #2. Sinus rhythm rate of 71 OK 166 QRS of 100 QTC 439. No acute changes appreciated. MDM Narrative Medical decision making narrative: Patient does have history of coronary artery disease. Has no specific chest pain or shortness of breath just a general malaise. Sinus rhythm on her EKG. Care turned over to day provider to follow-up and disposition. Brea 06/03/23: Patient was seen and evaluated independently by myself. Patient notes she just generally feels unwell this morning she had a little bit of nasal congestion, she describes headache she would have little nausea this morning and vomited in the shower. She denies chest pain she denies shortness of breath. Patient's labs and imaging were reviewed, workup does show that she is positive for COVID today initial EKG troponin are negative, chest x-ray does not show any other acute changes no other major changes in lab work. Discussed with patient will repeat her EKG troponin as she states she felt unwell with her last cardiac event. Suspect it is likely the COVID today causing her symptoms but patient is agreeable for 2nd troponin EKG these show no acute changes or elevation. She defers anything for nausea. She does note that she is still waiting to get a prescription for her atorvastatin from [facility] and she is out. Discussed we can send a short term prescription for 30 days so that she has extra until that arrives. Discharge Plan Departure Patient Disposition: Home Clinical Impression: COVID-19 virus infection Instructions: DI for COVID-19 (Suspected or Confirmed ) Activity Restrictions/Additional Instructions: Follow-up with your physician for recheck. You did test positive today for COVID-19 virus. Please continue your home medications as prescribed. Prescription for your atorvastatin was sent to [facility] in [place]. Please return for new chest pain, shortness of breath, lightheadedness or passing out, persistent vomiting, new swelling of your extremities, coughing up blood or other new or concerning changes. Prescriptions: New atorvastatin 80 mg tablet 80 mg PO BEDTIME Qty: 30 0RF No Action triamcinolone acetonide 0.5 % cream 1 applic topical TID Qty: 15 0RF aspirin 81 mg tablet,chewable 81 mg PO DAILY Qty: 90 3RF loratadine [Claritin] 10 mg tablet 10 mg PO DAILY PRN (Reason: Allergy Symptoms) Qty: 90 1RF lisinopril 20 mg tablet 20 mg PO BID Qty: 180 3RF metoprolol succinate 50 mg capsule,sprinkle,ER 24hr 50 mg PO DAILY Qty: 90 3RF Rx Instructions: In addition to metoprolol tartrate metoprolol succinate 50 mg tablet extended release 24 hr 50 mg PO DAILY Qty: 30 0RF Rx Instructions: In addition to metoprolol tartrate 100mg/ PT WILL NEED TO BE SEEN BEFORE NEXT RENEWAL 04/07/22 atorvastatin 40 mg tablet 80 mg PO DAILY Qty: 30 0RF Rx Instructions: NO FUTURE FILLS UNTIL FOLLOW UP. PLEASE CALL TO SCHEDULE APPT. THANK YOU 06/30/22. metoprolol tartrate 100 mg tablet 100 mg PO BID Qty: 60 0RF Rx Instructions: NO FUTURE FILLS UNTIL FOLLOW UP. PLEASE CALL TO SCHEDULE APPT. THANK YOU 06/30/22. acetaminophen [Tylenol Arthritis Pain] 650 mg tablet extended release 650 mg PO Q12H tramadol 50 mg tablet 50 mg PO BID PRN (Reason: pain) Qty: 60 5RF Rx Instructions: Exempt Referrals: Parth Hancock MD [Primary Care Provider] - Stand Alone Forms: Patient Portal/API, Work Release Note
[2023-06-03 07:15] LABS: Add Manual Diff / Slide Review NO; Basophils Absolute Auto 0 /uL (0-100); Basophils Percent Auto 0.4 % (0-2); Eosinophils Absolute Auto 100 /uL (0-450); Eosinophils Percent Auto 1.8 % (2-4); Hematocrit 40.2 % (36-46); Hemoglobin 14.1 g/dL (12.0-16.0); Lymphocytes Absolute Auto 200 /uL (1100-4500); Lymphocytes Percent Auto 4.7 % (25-40); Mean Corpuscular Hemoglobin 31.5 PG (26-34); Mean Corpuscular Volume 89.9 fL (80-100); Monocytes Absolute Auto 500 /uL (0-900); Monocytes Percent Auto 9.9 % (3-14); Neutrophils Absolute Auto 4100 /uL (1500-7000); Neutrophils Percent Auto 83.2 % (50-75); Platelet Count 133 X10^3/uL (150-400); Red Blood Cell Count 4.48 X10^6/uL (4.0-5.2); Red Cell Distribution Width 12.5 % (11.6-14.8); White Blood Cell Count 4.9 X10^3/uL (4.5-11.0)
[2023-06-03 07:22] LABS: Alanine Aminotransferase 41 IU/L (<35); Albumin 4.3 g/dL (3.5-5.0); Albumin Globulin Ratio 1.3 (1.0-2.8); Alkaline Phosphatase 130 U/L (38-126); Aspartate Aminotransferase 39 IU/L (14-36); BUN Creatinine Ratio 25.3 (6-22); Bilirubin Total 0.8 mg/dL (0.2-1.3); Blood Urea Nitrogen 19 mg/dL (7-17); Calcium 9.2 mg/dL (8.4-10.2); Carbon Dioxide 28 mmol/L (22-32); Chloride 99 mmol/L (98-107); Creatine Kinase 52 U/L (30-135); Estimated Glomerular Filt Rate > 60 mL/min (>60); Globulin 3.2 g/dL (1.7-4.1); Glucose 233 mg/dL (80-110); HEMOLYSIS < 15 (0-50); Lipase 189 U/L (23-300); Potassium 4.3 mmol/L (3.4-5.1); Sodium 133 mmol/L (137-145); Total Protein 7.5 g/dL (6.3-8.2)
[2023-06-03 07:33] LABS: Troponin I < 0.012 ng/mL (0.01-0.034)
[2023-06-03 08:27] LABS: B. parapertussis Not Detected (Not Detecte); Bordetella pertussis Not Detected (Not Detecte); Chlamydophila pneumoniae Not Detected (Not Detect); Coronavirus 229E Not Detected (Not Detect); Coronavirus HKU1 Not Detected (Not Detect); Coronavirus NL 63 Not Detected (Not Detect); Coronavirus OC43 Not Detected (Not Detect); Human Metapneumovirus Not Detected (Not Detect); Human Rhinovirus/Enterovirus Not Detected (Not Detect); Influenza A Not Detected (Not Detect); Influenza B Not Detected (Not Detect); Mycoplasma pneumoniae Not Detected (Not Detect); Parainfluenza Virus 1 Not Detected (Not Detect); Parainfluenza Virus 2 Not Detected (Not Detect); Parainfluenza Virus 3 Not Detected (Not Detect); Parainfluenza Virus 4 Not Detected (Not Detect); Respiratory Syncytial Virus Not Detected (Not Detect); SARS- CoV-2 Detected (Not Detecte)
[2023-06-03 08:29] LABS: Adenovirus Not Detected (Not Detect)
[2023-06-03 09:53] LABS: Troponin I < 0.012 ng/mL (0.01-0.034)
--- NOTE | 2023-06-03 10:13 | PC.NURSE ---
pt denies chest pain/SOB but complains of feeling generally unwell. Pt has a nonproductive cough
== END 2023-06-03 10:15 | disposition home or self-care (01) ==
PROVIDERS: Emergency Medicine; Emergency Provider Emergency Medicine; PCP Family Medicine
DX: U07.1 COVID-19 (principal); R07.9 Chest pain, unspecified; I25.2 Old myocardial infarction; I25.10 Atherosclerotic heart disease of native coronary artery without angina pectoris
CPT/HCPCS: 36415; 71045; 80053; 82550; 83690; 84484; 85025; 87633; 93005; 99283; 99284

== ENCOUNTER → 2023-07-23 06:45 | Outpatient (CLI) | payer MEDICARE, OTHER, SELFPAY ==
[2018-07-16 13:33] VITALS: BMI 31.8
[2023-07-23 08:32] LABS: Cholesterol 111 mg/dL (140-199); HDL Cholesterol 33 mg/dL (40-60); LDL Cholesterol Calculated 51 mg/dL (<100); Triglycerides 133 mg/dL (35-150)
== END ==
PROVIDERS: PCP Family Medicine; Referring Provider Internal Medicine Cardiovascular Disease; Visit Provider Internal Medicine Cardiovascular Disease
DX: I25.10 Atherosclerotic heart disease of native coronary artery without angina pectoris (principal)
CPT/HCPCS: 36415; 80061

== ENCOUNTER → 2023-07-30 13:54 | Outpatient (CLI) | payer MEDICARE, OTHER, SELFPAY ==
[2018-07-16 13:33] VITALS: BMI 31.8
--- NOTE | 2023-07-30 14:14 | DI.ECHO.S_ITS ---
[facility]---------[facility] +---------+ : : [address] : : : : [id number] : : : : Phone: [phone] Echocardiogram Report + + :Name: LORETTA TUCKER Study Date: 07/30/2023 Height: 63 in : :[facility] ReadingLocation: Weight: 191 lb : : Gender: Female BSA: 1.9 m2 : :: 1950 Age: 72 yrs BP: 142/85 mmHg: :Reason For Study: ATHEROSCLEROTIC HEART DISEASE : :Ordering Physician: PIERRE, : :DWAYNE Performed By: Leana Doshi : :Referring: DWAYNE ALEJANDRE : + + Interpretation Summary The ejection fraction is estimated to be 60-65%. There is mild to moderate mitral annular calcification. The mitral valve leaflets appear borderline thickened, but open well. There is trace mitral regurgitation. There is mild tricuspid regurgitation. The right ventricular systolic pressure is estimated to be at least 24 mmHg based on an estimated right atrial pressure of 3 mm Hg. Procedure: A two-dimensional transthoracic echocardiogram with color flow and Doppler was performed. The study quality was technically adequate. Comparison is made with the echocardiogram of 07/12/2018. The patient was in sinus bradycardia with heart rates between 54-62 bpm during the exam. Left Ventricle: The left ventricle is normal in size. Proximal septal thickening is noted. The ejection fraction is estimated to be 60-65%. Left ventricular wall motion is normal. Right Ventricle: The right ventricle is normal in size and function. Atria: The left atrial size is normal. Right atrial size is normal. There is no Doppler evidence for an interatrial shunt. Mitral Valve: There is mild to moderate mitral annular calcification. The mitral valve leaflets appear borderline thickened, but open well. There is trace mitral regurgitation. Aortic Valve: The aortic valve is trileaflet. The aortic valve opens well. There is no aortic valve stenosis. No aortic regurgitation is present. Tricuspid Valve: The tricuspid valve is normal in structure and function. There is mild tricuspid regurgitation. The right ventricular systolic pressure is estimated to be at least 24 mmHg based on an estimated right atrial pressure of 3 mm Hg. Pulmonic Valve: The pulmonic valve leaflets are thin and pliable; valve motion is normal. There is trace pulmonic regurgitation. Great Vessels: The aortic root is normal size. The dimensions of the ascending aorta are normal. The IVC is of normal diameter and collapses greater than 50% with a sniff. This suggests a low right atrial pressure of 3 mm Hg. Pericardium/ Pleura There is no pericardial effusion. There is no pleural effusion. MMode/2D Measurements & Calculations LVIDd: 4.2 cm LVOT diam: 1.9 cm LVIDs: 2.7 cm Ao root diam: 3.2 cm FS: 35.7 % asc Aorta Diam: 3.4 cm EPSS: 0.59 cm Ao Arch Diam (Prox Trans): 2.9 cm IVSd: 0.91 cm LVPWd: 0.91 cm LV triana. diameter/BSA (cm/m^2): 2.2 LV sys. diameter/BSA (cm/m^2): 1.4 LA A2 area: 16.9 cm2 RA long axis: 5.0 cm LA A4 area: 17.4 cm2 RA area: 10.8 cm2 LA length (vol): 5.3 cm RA vol: 20.2 ml LA vol: 47.1 ml RA : 10.6 ml/m2 LA vol index: 24.8 ml/m2 IVC diam: 1.2 cm RVD1 (basal): 3.7 cm RVD2 (mid): 3.2 cm TAPSE: 1.8 cm Doppler Measurements & Calculations Ao V2 max: 132.2 cm/sec LVOT Max Maxim: 100.3 cm/sec Ao V2 mean: 90.1 cm/sec LV V1 max P.0 mmHg Ao max P.0 mmHg LV V1 VTI: 23.2 cm Ao mean P.6 mmHg SUE(I,D): 2.4 cm2 Ao V2 VTI: 27.8 cm SUE(V,D): 2.2 cm2 sev ratio: 0.84 SUE indexed to BSA (cm^2/m^2): 1.3 MV E max maxim: 77.4 cm/sec TR max maxim: 230.8 cm/sec MV A max maxim: 94.9 cm/sec TR max P.3 mmHg MV E/A: 0.82 PA V2 max: 89.1 cm/sec Med Peak E' Maxim: 5.5 cm/sec PA V2 mean: 59.2 cm/sec E/E' med: 14.1 PA mean P.6 mmHg Lat Peak E' Maxim: 9.4 cm/sec PA pr(Accel): 25.9 mmHg E/E' lat: 8.2 E/e' average: 11.2 MV dec time: 0.31 sec SV(LVOT): 67.6 ml Reading Physician:03:28 PM
== END ==
PROVIDERS: PCP Family Medicine; Referring Provider Internal Medicine Cardiovascular Disease; Visit Provider Internal Medicine Cardiovascular Disease
DX: I34.81 Nonrheumatic mitral (valve) annulus calcification (principal); I07.1 Rheumatic tricuspid insufficiency; I25.10 Atherosclerotic heart disease of native coronary artery without angina pectoris
CPT/HCPCS: 93306

== ENCOUNTER → 2023-10-28 13:18 | Outpatient (CLI) | payer MEDICARE, OTHER, SELFPAY ==
[2018-07-16 13:33] VITALS: BMI 31.8
== END ==
PROVIDERS: PCP Family Medicine; Visit Provider Nurse Practitioner Family
DX: J02.9 Acute pharyngitis, unspecified (principal)
CPT/HCPCS: 87070